=== PATIENT | female | born 1955 | race Caucasian/White ===

== ENCOUNTER → 2018-08-25 16:23 | Outpatient (CLI) | payer MEDICARE, SELFPAY ==
[2014-11-20 20:40] VITALS: BMI 28.8
== END ==
PROVIDERS: Family Provider Urology; PCP Urology; Referring Provider Nurse Practitioner Adult Health; Visit Provider Nurse Practitioner Adult Health
DX: N39.0 Urinary tract infection, site not specified (principal)
CPT/HCPCS: 87077; 87086; 87088; 87186

== ENCOUNTER → 2018-09-18 07:06 | Outpatient (CLI) | payer MEDICARE, SELFPAY ==
--- NOTE | 2018-09-18 07:29 | CT_ITS ---
STUDY: CT ABDOMEN AND PELVIS WITHOUT CONTRAST REASON FOR EXAM: Female, 62 years old. Flank pain. Status post right nephrectomy. History of cervical carcinoma. RADIATION DOSAGE (If Supplied By Facility): CTDIvol = ( 9.77 ) mGy, DLP = ( 471.16 ) mGycm TECHNIQUE: Transaxial images were obtained from the dome of the diaphragm to the symphysis pubis without oral contrast, and without intravenous contrast. Sagittal and coronal images were reconstructed. Individualized dose optimization techniques were used for this CT. COMPARISON: None. FINDINGS: The visualized lung bases are unremarkable. The visualized portions of the heart are within normal limits. Normal liver. Normal gallbladder and extrahepatic biliary system. Normal spleen. Normal pancreas. Normal bilateral adrenal glands. Status post right nephrectomy. Ritu-cg-yihxyfhu right hydronephrosis and right hydroureter. Nonobstructive calculus in the lower pole calyx of the left kidney measuring 4 mm. There is a small hiatal hernia. Normal small intestine. The left hemicolon is decompressed. The appendix is visualized and appears normal. Normal abdominal aorta. There is an IVC filter in place. There is borderline retroperitoneal lymphadenopathy with enlarged nodes no greater than 10mm in the short axis diameter. Air is seen within the bladder lumen. Inhomogeneous mass seen in the pelvis extending down into the presacral region. Focal calcifications are seen within it. There is evidence of bone destruction of the sacrum. The left-sided hydronephrosis is most likely secondary to the mass in the pelvis. A neoplastic process should be ruled out. A colostomy is seen in the left lower quadrant. There is evidence of prior herniation of nondilated small bowel loops within the stoma. There is a demineralization of the lumbar vertebrae. CT/Abdomen/Pelvis without Cont IMPRESSION: Soft tissue mass in the pelvis with destruction of the sacrum. There is a left hydronephrosis most likely secondary to entrapment of the left ureter within this mass. Status post right nephrectomy. Air is seen within the bladder lumen. Electronically Signed: Gabriel Gallo at 14:44 EDT , Service support ,
== END ==
PROVIDERS: Referring Provider Nurse Practitioner Adult Health; Visit Provider Nurse Practitioner Adult Health
DX: R10.9 Unspecified abdominal pain (principal); R30.0 Dysuria; R39.15 Urgency of urination
CPT/HCPCS: 74176; 87077; 87086; 87088; 87186

== ENCOUNTER 2018-09-19 14:07 | Inpatient (IN) | payer MEDICARE, SELFPAY ==
[2018-09-19] VITALS (11 sets, daily range): BP systolic 112–156; BP diastolic 52–108; PULSE 75–101; RESP 14–21; TEMP 36.7–37.2; O2SAT 93–100; BMI 26.9
--- NOTE | 2018-09-19 | IMM_PTH ---
PATIENT: VICTOR MANUEL WILLOUGHBY LOC: [facility] U#:[id number] AGE/SX: 62/F ROOM: MS308 RE09/19/[address]: Dr. Freddy Mi DO : 1955 BED: 1 DIS: 09/22/2018 SPEC #: [id number] RECD: 09/23/18 11:20 STATUS: ALESSIA REQ #: [id number] ANN: 09/19/18 00:[address]: Magdi Paulson DEPT: IMMUNOHISTOCHEMISTRY RECD BY: Courtney Cash ENTERED: 09/23/18 11:22 SP TYPE: IMMUNO OTHR DR: DO Dr. Toribio Lau MD No Primary Care Phys DAVE Barbosa Tissues: Pelvis, NOS Procedures: SMA (add) CD31 (add) CD34 (add) CK8 (add) DESMIN (add) Vimentin (add) FACTOR VIII (add) Pankeratin (initial) MELAN-A (add) S-100 (add) PHYSICIAN & [address] [address] SPECIMEN INFORMATION: Tissue Source: Pelvic mass biopsy Clinical Info: Pelvic mass Specimen Number: [id number] CPT code: 52149, 24189 x9 METHODOLOGY: Deparaffinized sections of prefer/formalin-fixed tissue or PAP/DQ stained slides are incubated with monoclonal/polyclonal antibodies/oligonucleotide probes. Localization is made via biotin free immunoperoxidase method. Appropriate controls are performed and reacted as expected. Results on target cell population are indicated in the following table: RESULTS: ANTIBODY / CLONE RESULT AE1-3 (AE1/AE3/PCK26) negative CK8 (81auirW66) negative Vimentin (V9) positive CD31 (EZEQUIEL/70A) negative Factor VIII (R Ag) negative CD34 (QBEnd-10) negative Actin (1A4) positive Desmin (CE-R-11) positive Melan A (A103) negative S-100 (4C4.9) negative These tests were developed and their performance characteristics determined by [facility]. They may not have been cleared or approved by the U.S. Food and Drug Administration. The FDA has determined that such clearance or approval is not necessary. INTERPRETATION: Pelvic mass, core biopsy: Spindle cell proliferation with smooth muscle differentiation, consistent with leiomyoma. See comment. TONIA:jose 09/29/18 Comment: The specimen is sent to [facility] for expert opinion and reviewed by Dr. Isabel and above diagnosis is rendered. The complete report is viewable in patient's EMR. Case has been reviewed in consultation with Dr. Pina who concurs with the above diagnosis. IDC:AM
--- NOTE | 2018-09-19 | IMM_PTH ---
PATIENT: VICTOR MANUEL WILLOUGHBY LOC: MS3 U#:[id number] AGE/SX: 62/F ROOM: MS308 RE09/19/[address]: Dr. Freddy Mi DO : 1955 BED: 1 DIS: 09/22/2018 SPEC #: [id number] RECD: 09/23/18 11:20 STATUS: ALESSIA REQ #: [id number] ANN: 09/19/18 00:[address]: Magdi Paulson DEPT: IMMUNOHISTOCHEMISTRY RECD BY: Courtney Cash ENTERED: 09/23/18 11:22 SP TYPE: IMMUNO OTHR DR: DO Dr. Toribio Lau MD No Primary Care Phys DAVE Barbosa Tissues: Pelvis, NOS Procedures: SMA (add) CD31 (add) CD34 (add) CK8 (add) DESMIN (add) Vimentin (add) FACTOR VIII (add) Pankeratin (initial) MELAN-A (add) S-100 (add) PHYSICIAN & [address] [address] SPECIMEN INFORMATION: Tissue Source: Pelvic mass biopsy Clinical Info: Pelvic mass Specimen Number: [id number] CPT code: 38662, 95344 x9 METHODOLOGY: Deparaffinized sections of prefer/formalin-fixed tissue or PAP/DQ stained slides are incubated with monoclonal/polyclonal antibodies/oligonucleotide probes. Localization is made via biotin free immunoperoxidase method. Appropriate controls are performed and reacted as expected. Results on target cell population are indicated in the following table: RESULTS: ANTIBODY / CLONE RESULT AE1-3 (AE1/AE3/PCK26) negative CK8 (29tbahL33) negative Vimentin (V9) positive CD31 (EZEQUIEL/70A) negative Factor VIII (R Ag) negative CD34 (QBEnd-10) negative Actin (1A4) positive Desmin (CE-R-11) positive Melan A (A103) negative S-100 (4C4.9) negative These tests were developed and their performance characteristics determined by [facility]. They may not have been cleared or approved by the U.S. Food and Drug Administration. The FDA has determined that such clearance or approval is not necessary. INTERPRETATION: Pelvic mass, core biopsy: Spindle cell proliferation with smooth muscle differentiation, consistent with subcutaneous leiomyoma. See comment. TONIA:jose 09/29/18 Comment: The specimen is sent to [facility] for expert opinion and reviewed by Dr. Isabel and above diagnosis is rendered. The complete report is viewable in patient's EMR. Case has been reviewed in consultation with Dr. Pina who concurs with the above diagnosis. IDC:AM
--- NOTE | 2018-09-19 13:20 | MASS_PTH ---
PATIENT: VICTOR MANUEL WILLOUGHBY LOC: MS3 U#:[id number] AGE/SX: 62/F ROOM: MS308 RE09/19/[address]: Dr. Freddy Mi DO : 1955 BED: 1 DIS: 09/22/2018 SPEC #: [id number] RECD: 09/22/18 07:57 STATUS: ALESSIA REQ #: [id number] ANN: 09/19/18 13:[address]: Magdi Paulson DEPT: SURGICAL PATHOLOGY RECD BY: Shady Figueroa ENTERED: 09/22/18 08:22 SP TYPE: Mass OTHR DR: MD Dr. Freddy Stone DO Dr. Prakash Chand, MD No Primary Care Phys Katty Koch, SOHAN-C Tissues: Pelvis, NOS Procedures: [facility] Consultation (on slides) Surgery Specimen Level V Comments: @ Ordering doctor for SUV edited from to @ by BARRINGTON at 09/22/18 0855 @ Submitting doctor edited from to @ by BARRINGTON at 09/22/18 0855 HEADER OPERATION: Cysto PRE-OP DIAGNOSIS: Left hydronephrosis, pelvic mass TISSUE SUBMITTED: Pelvic mass biopsy MICROSCOPIC DIAGNOSIS Pelvic mass, core biopsy: Spindle cell proliferation with smooth muscle differentiation, consistent with subcutaneous leiomyoma. See comment. SJ:jose 09/29/18 COMMENT This case is sent to [facility] for expert opinion and reviewed by Dr. Isabel and above diagnosis is rendered. The complete report is viewable in patient's EMR. Immunohistochemistry ([id number]) and immunohistochemistry stains performed at [facility] supports the above diagnosis. Case has been reviewed in consultation with Dr. Pina who concurs with the above diagnosis. IDC:AM MICROSCOPIC DESCRIPTION Slides are reviewed. GROSS DESCRIPTION Received in fixative is one container labeled with the patient's name and designated pelvic mass biopsy. The specimen consists of five elongated fragments of ojeda soft tissue measuring 1 to 2 cm in length and 0.1 cm in diameter. The specimen is totally submitted in one cassette. / TONIA:jose 09/22/18 TC: CPT: 55452
--- NOTE | 2018-09-19 13:20 | MASS_PTH ---
PATIENT: VICTOR MANUEL WILLOUGHBY LOC: MS3 U#:[id number] AGE/SX: 62/F ROOM: MS308 RE09/19/[address]: Dr. Freddy Mi DO : 1955 BED: 1 DIS: 09/22/2018 SPEC #: [id number] RECD: 09/22/18 07:57 STATUS: ALESSIA REQ #: [id number] ANN: 09/19/18 13:[address]: Magdi Paulson DEPT: SURGICAL PATHOLOGY RECD BY: Shady Figueroa ENTERED: 09/22/18 08:22 SP TYPE: Mass OTHR DR: MD Dr. Freddy Stone DO Dr. Prakash Chand, MD No Primary Care Phys Katty Koch, SOHAN-C Tissues: Pelvis, NOS Procedures: [facility] Consultation (on slides) Surgery Specimen Level V Comments: @ Ordering doctor for SUV edited from to @ by BARRINGTON at 09/22/18 0855 @ Submitting doctor edited from to @ by BARRINGTON at 09/22/18 0855 HEADER OPERATION: Cysto PRE-OP DIAGNOSIS: Left hydronephrosis, pelvic mass TISSUE SUBMITTED: Pelvic mass biopsy MICROSCOPIC DIAGNOSIS Pelvic mass, core biopsy: Spindle cell proliferation with smooth muscle differentiation, consistent with leiomyoma. See comment. SJ:jose 09/29/18 COMMENT This case is sent to [facility] for expert opinion and reviewed by Dr. Isabel and above diagnosis is rendered. The complete report is viewable in patient's EMR. Immunohistochemistry ([id number]) and immunohistochemistry stains performed at [facility] supports the above diagnosis. Case has been reviewed in consultation with Dr. Pina who concurs with the above diagnosis. IDC:AM MICROSCOPIC DESCRIPTION Slides are reviewed. GROSS DESCRIPTION Received in fixative is one container labeled with the patient's name and designated pelvic mass biopsy. The specimen consists of five elongated fragments of ojeda soft tissue measuring 1 to 2 cm in length and 0.1 cm in diameter. The specimen is totally submitted in one cassette. / TONIA:jose 09/22/18 TC: CPT: 47470
[2018-09-19] MEDS: Cefazolin 2 GM in 0.9% Normal Saline 100 ML IV (13:33)
--- NOTE | 2018-09-19 14:06 | CT_ITS ---
STUDY: PERCUTANEOUS NEPHROSTOMY TUBE INSERTION LEFT REASON FOR EXAM: Female, 62 years old. Left hydronephrosis due to a pelvic mass. RADIATION DOSAGE (If Supplied By Facility): CTDIvol = ( 15 ) mGy, DLP = ( 430.92 ) mGycm. Individualized dose optimization techniques were used for this CT.? TECHNIQUE: The patient was in the left side up decubitus position. The overlying skin was prepped and draped in usual sterile fashion. Conscious sedation protocol was followed. The patient received 2 mg of Versed and 50 mcg of fentanyl intravenously. Conscious sedation was started at 1440 hours and terminated at 1500 hours. The patient was monitored appropriately by the department nurse. Following local anesthetic application, a puncture was performed utilizing a 20-gauge Chiba needle. Access to the kidney was obtained. Following this, appropriate dilatation of the tract was performed. An 8.5 [place] left-sided nephrostomy catheter was placed. The patient tolerated procedure well. CT/Nephrotube Placement CT IMPRESSION: Successful left percutaneous nephrostomy catheter placement. Electronically Signed: Gabriel Gallo, at 15:22 EDT , Service support ,
--- NOTE | 2018-09-19 14:15 | HP.PCM_ITS ---
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 This past month had Constant bladder pressure, has to strain to void, dysuria intermittently, sometimes gushes when she stands up. Urine cx 07/29 grew mixed contaminants. Has a solitary left kidney and after a appropriate course of antibotics symptoms did not resolved and we recommended a CT scan. Finally patient had a CT scan yesturday which demonstrates a large pelvic mass and left hydronephrosis, today I attempted to place a left stent but was impossible due to pelvic mass pressing on bladder and severe distorted anatomy. She will need an left nephrostomy tube today. I call Dr Rosas at [facility] who agreed to place a nephrostomy tube today. Will admit to hospital for further care, consult hospitalist for medical manegement and will consult medical oncology for new pelvic mass suspect has recurrence of cervical cancer. On bimanual exam very hard fix mass in the pelvis. 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 Does not use smokeless tobacco. Does not drink anymore. Does not use drugs. Drinks 1 caffeinated drink per day. Has had a blood transfusion. REVIEW OF SYSTEMS: Constitutional: Patient denies fever and chills. Gastrointestinal: Patient reports abdominal pain and nausea/vomiting. Patient denies change in bowels. Genitourinary: Patient reports frequent urination, leakage of urine, frequent urinary tract infections, and difficulty starting stream. Patient denies urinary retention, get up at night to void, blood in urine, history of stones, weak stream, and bedwetting. VITAL SIGNS: Weight 175 lb / 79.38 kg Height 66 in / 167.64 cm BP 132/68 mmHg BMI 28.2 kg/m? MULTI-SYSTEM PHYSICAL EXAMINATION: Constitutional: Well-nourished. Normally developed. Good grooming. Neurologic / Psychiatric: Oriented to time, oriented to place, oriented to person. No depression, no anxiety, no agitation. Gastrointestinal: No mass, no tenderness, no rigidity, non obese abdomen. multiple surgical scars colostomy in place pelvic: exam: hard fixed mass in the pelvis. PAST DATA REVIEWED: Source Of History: Patient Records Review: Previous Patient Records Urine Test Review: Urinalysis, Urine Culture and Sensitivity PROCEDURES: cystoscopy. ASSESSMENT: Pelvis mass new left hydronephrosis admit to hospital npo plan for left nephrostomy tube today and admit. consult hospitalist consult medical oncology.
--- NOTE | 2018-09-19 14:24 | SUR.PHASEI ---
Addendum entered by Cheo Raphael 09/19/18 15:33: ERROR. JUAN MANUEL CANDELARIA* Original Note: PT BEING TAKEN TO CT SCAN BY TOMEKA CANDELARIA. PT IS HAVING A PROCEDURE DONE THERE, PER ABIOAL ORDERS. PT WILL RETURN TO PACU AFTERWARDS.
--- NOTE | 2018-09-19 14:32 | OP.PCM_ITS ---
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 CAT scan was done because of recurrent UTIs in this past month she is been having more pressure in the bladder more UTI symptoms and after recommendation for CAT scan she had a done demonstrated new left hydronephrosis so she is taken to the date of surgery to place a stent if possible. Procedure note patient was taken back to the operating room and underwent g eneral anesthesia was placed supine on the table she had an amputation of the right lower leg this was put into stirrups the left leg was put in stirrups medially and bimanual exam foul-smelling purulent fluid out of the pelvic area she had a very hard fixed mass in the pelvis area is very tender on cystoscopy the bladder was completely obliterated by a large mass pressing into the bladder no recognizable structures within the bladder the trigone was not recognizable is all inflamed no normal distention of the bladder. Completely on recognizable anatomy is hard firm fixed mass that was pushing outwardly from the outside into the bladder at this point the stent placement was not even attempted this would be futile so I drained drain bladder and completed the pelvic exam and the patient's anesthetic was reversed plan is to admit her to the hospital in place in the left nephrostomy tube as soon as possible. Type of Anesthesia:: General Drains: none - Admit VTE Documentation VTE Present on Admission: No VTE Mechan Device Prophylaxis: SCD's
[2018-09-19] MEDS: Midazolam 2 MG/2 ML Syringe IV (14:43)
[2018-09-19] MEDS: fentaNYL 100 MCG/2 ML Ampul IV (14:44)
--- NOTE | 2018-09-19 15:30 | SUR.PHASEI ---
PT WAS TAKEN TO CT SCAN BY JUAN MANUEL CANDELARIA. GAVE TOMEKA JARRELL REPORT ON PT. PER KECIA IN CT SCAN, PT WOULD COME BACK TO PACU AFTERWARDS. PT IS NOW BEING TAKEN TO MS3 INSTEAD OF COMING TO PACU. GAVE REPORT TO TOMEKA SILVEIRA FROM [facility].
[2018-09-19] MEDS: 0.9% Normal Saline 1,000 ML 125 ML IV (16:26)
[2018-09-19 17:41] LABS: Bedside Glucose 102 mg/dL (70-110)
[2018-09-19 18:18] LABS: Absolute Lymphocyte Count 1.73 X10^3/uL (0.83-4.51); Absolute Neutrophil Count 8.3 X10^3/uL (2.0-7.7); Basophil# 0.04 X10^3/uL; Basophil% 0.4 % (0-1); Eosinophil# 0.08 X10^3/uL; Eosinophils% 0.7 % (0-5); Hematocrit 36.9 % (37-47); Lymphocyte # 1.73 X10^3/ul (4.0); Lymphocyte % 15.9 % (19-41); Mean Corp Hgb Conc 32.5 g/dL (32-36); Mean Corpuscular Hgb 29.7 pg (27.0-32.0); Mean Corpuscular Volume 91.3 fL (81-99); Mean Platelet Vol. 9.3 fl (6.2-12.0); Monocyte# 0.67 X10^3/uL; Monocyte% 6.2 % (0-10); NRBC Flagged by Analyzer 0 % (0-5); Neutrophil # 8.32 X10^3/uL (2.7-7.7); Neutrophil % 76.3 % (47-70); Platelet Count 338 K/mm3 (150-450); RBC Distribution Width CV 13.2 % (11.6-14.6); RBC Distribution Width SD 44.2 fl (35.1-43.9); Red Blood Count 4.04 M/mm3 (4.2-5.4); White Blood Count 10.9 K/mm3 (4.4-11.0)
--- NOTE | 2018-09-19 18:29 | PCM.PN.BLA ---
Progress Note 62 yo female s/p L nephrostomy tube placement for Solitary left kidney. new mass in the pelvis, h/o cervical cancer probably need biopsy to confirm recurrence may do CT guided biopsy on Saturday consult to hospitalist and oncologist placed.
--- NOTE | 2018-09-19 18:45 | CON.PCM_ITS ---
Problem List (1) Recurrent UTI Status: Acute (2) Back pain Status: Chronic (3) Cervical cancer Status: Chronic (4) Colostomy in place Status: Chronic (5) Presence of IVC filter Status: Chronic (6) Rupture of bowel Status: Chronic (7) ureteral stents Status: Chronic (8) Pelvic mass in female Status: Acute Reason for Consult Date of Consultation: 09/19/18 Reason for Consultation: Medical management for UTI and other comorbidities History of Present Illness: The patient is a 62 year old F with multiple comorbidities is admitted for work- up for recurrent UTI. Patient had first UTI episode about a week before . After that she has taken fluoroquinolones and other antibiotics but she still has low urinary tract symptoms including increased frequency, urgency, dysuria, incomplete emptying of bladder, incontinent and sometimes rushing of urine on standing up. 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 She is wheelchair-bound. She had a CT abdomen shows soft tissue mass in the pelvis with destruction of the sacrum. Left hydronephrosis most likely secondary to entrapment of left ureter within the mass. The area seen in the bladder. Today, Dr. Paulson attempted cystoscopy but bladder anatomy was distorted, unrecognizable and outside compression from pelvic mass. Therefore, stent placement was not attempted. Later on, Dr. Rivera put percutaneous left-sided nephrostomy tube for drainage [] She denies chronic heart or lung disease. Does not have chest pain, shortness of breath, dizziness or syncope history. She has never been a smoker. Denies drinking alcohol. Past Medical History Past Medical History (Chronic Problems): Chronic Problems Colostomy in place (Chronic) Back pain (Chronic) Presence of IVC filter (Chronic) ureteral stents (Chronic) Rupture of bowel (Chronic) Cervical cancer (Chronic) Allergies Penicillins Allergy (Verified 09/19/18 08:40) Rash hydrocodone bitartrate [From Vicodin] Adverse Reaction (Verified 09/19/18 08:40) Nausea Sulfa (Sulfonamide Antibiotics) Adverse Reaction (Verified 09/19/18 08:40) Vomiting Home Medications: Ambulatory Orders Medication Instructions Recorded Oxybutynin Chloride [Ditropan Xl] 5 mg PO TID 11/20/14 Venlafaxine XR [Effexor Xr] 75 mg PO DAILY 11/20/14 Acetaminophen [Tylenol Extra 500 - 1,000 mg PO Q6H PRN PRN 09/19/18 Strength] Biotin 300 mcg PO DAILY 09/19/18 Surgical History: - - cervical cancer surgery, had radiation and chemo, radiation implants, ureteral stents, multiple abd surgeries and cololostomy, right nephrectemy, Psychiatric History: Anxiety, Depression 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 Smoking Status: Never smoker Tobacco Use: Non-smoker - *Family History Maternal History Items: - - mother with knee replacement Paternal History Items: - - father with diabetes Review of Systems Constitutional: Reports: Chills HEENT: Denies: Head Aches, Sinus Congestion, Sinus Drainage Cardiovascular: Denies: Chest Pain, Palpitations Respiratory: Denies: Cough, Shortness of breath at rest, Sputum production Gastrointestinal: Denies: Abdominal Pain, Nausea, Vomiting Genitourinary: Reports: Dysuria, Frequency, Hesitancy, Incontinence, Retention, Urgency Musculoskeletal: Reports: Back Pain, Joint Pain. Denies: Joint Tenderness Skin: Denies: Rash, Wounds Neurological: Reports: Balance problems. Denies: Focal weakness, Numbness, Tingling Psychiatric: Denies: Anxiety, Depression, Homicidal Ideations, Suicidal Ideations Hematologic/ Lymphatic: Denies: Easy Bruising, Easy Bleeding Patient Problems: Active and Suspected Problems Recurrent UTI (Acute) Pelvic mass in female (Acute) - Physical Exam General: Alert, Oriented x3, Cooperative HEENT: Atraumatic, PERRLA, EOMI, Normocephalic Oral: Moist Mucosa Neck: Supple, No JVD, Negative Carotid Bruits Lungs: Clear to auscultation, Normal air movement, No rhonchi, No wheeze, No rales Cardiovascular: Regular rate, Regular Rhythm, Normal S1, Normal S2, No murmurs Abdomen: Bowel Sounds Present, Soft, Non Tender, - - Left-sided colostomy present. Extremities: No edema, Capillary Refill Less than 3 Seconds, - - Right above- knee amputation. Skin: No rashes, No breakdown Musculoskeletal: Arthritic Changes, Tenderness - Mild deep tenderness present on sacrum. Lumbar spinal surgical scar present Neurological: Cranial nerves II-XII grossly intact, Deep Tendon Reflexes 2+/4 and Symmetrical, Neuro grossly intact Psych/Mental Status: Normal Affect, Appropriate Vital Signs Temp Pulse Resp BP Pulse Ox 98.4 F 75 18 144/81 H 98 09/19/18 15:48 09/19/18 15:48 09/19/18 15:48 09/19/18 15:48 09/19/18 15:48 Oxygen Delivery Method [5] Room Air Oxygen Delivery Method [4] Room Air Oxygen Delivery Method [3] Room Air Oxygen Delivery Method [2] Room Air Oxygen Delivery Method [1 ( Room Air Initial Baseline)] Oxygen Delivery Method Room Air Weight: 167 lb 1.766 oz Body Mass Index (BMI) 26.9 Laboratory Tests Past 24 Hrs 09/19/18 09/19/18 18:10 18:10 WBC 10.9 RBC 4.04 L Hgb 12.0 Hct 36.9 L MCV 91.3 MCH 29.7 MCHC 32.5 RDW Std Deviation 44.2 H RDW Coeff of Aaron 13.2 Plt Count 338 MPV 9.3 Immature Gran % (Auto) 0.500 Neut % (Auto) 76.3 H Lymph % (Auto) 15.9 L [place] % (Auto) 6.2 Eos % (Auto) 0.7 Baso % (Auto) 0.4 Absolute Neuts (auto) 8.3 H Absolute Lymphs (auto) 1.73 Absolute Nucleated RBC 0.00 Nucleated RBC % 0 Sodium Pending Potassium Pending Chloride Pending Carbon Dioxide Pending Anion Gap Pending BUN Pending Creatinine Pending Est GFR (MDRD) Af Amer Pending Est GFR (MDRD) Non-Af Pending BUN/Creatinine Ratio Pending Glucose Pending Calcium Pending Total Bilirubin Pending AST Pending ALT Pending Alkaline Phosphatase Pending Total Protein Pending Albumin Pending POC Glucose 09/19/18 17:30 POC Glucose 102 Assessment/Plan All Active Problems Recurrent UTI (Acute) Pelvic mass in female (Acute) puncture wound from cat left upper cheek (Acute) Cellulitis of left external cheek (Acute) Cellulitis (Acute) The patient is a 62 year old F with multiple comorbidities is admitted for work- up for recurrent UTI. Patient had first UTI episode about a week before . After that she has taken fluoroquinolones and other antibiotics but she still has low urinary tract symptoms including increased frequency, urgency, dysuria, incomplete emptying of bladder, incontinent and sometimes rushing of urine on standing up. Today, Dr. Paulson attempted cystoscopy but bladder anatomy was distorted, unrecognizable and outside compression from pelvic mass. Therefore, stent placement was not attempted. Later on, Dr. Rivera put percutaneous left-sided nephrostomy tube for drainage [] 1. Acute on recurrent UTI/colonization: There is no UA. Preliminary urine culture from 09/18 shows gram-negative lima [id number] colonies per mL. Previous urine culture from 08/2018 shows MRDO Proteus mirabilis [id number] and mixed gram-positive organism less than 1000 with resistant to most of the antibiotics except cefepime, imipenem and ertapenem and gentamicin. Patient did not had anaphylactic reaction with penicillin. Back in 1980s, she had localized rash in the chest and she was given penicillin but she has tolerated well penicillin in her 20s and later on. Started on cefepime 500 mg every 12 hourly adjusted to creatinine clearance. 2. Acute kidney injury most probably postobstructive secondary to left hydroureteronephrosis/possible UTI: Her baseline creatinine runs around 0.9. Currently, BUN/creatinine: 30/1.93. Electrolytes are within normal limit. IV fluid normal saline. 3. Pelvic mass with entrapped left ureter and left hydroureteronephrosis: Patient has left percutaneous nephrostomy tube. Urine is mild bloody. We will send the urine for UA and urine culture and sensitivity. Will need further consult from oncologist as the mass seems causing destruction to sacrum bone, and will need further work-up including biopsy. 4. History of multiple surgeries in the past: Right above-knee amputation seco ndary to sepsis, colostomy, IVC filter, chronic back pain status post lumbar spinal surgery: Patient has very limited functional capacity. On wheelchair. PT and OT. Code Visit Inpatient E&M: 12308 Init Hosp L3
[2018-09-19 18:48] LABS: ALB/GLOB Ratio 0.6 RATIO (0.9-2.4); AST(SGOT) 14 U/L (15-37); Alanine Aminotransfer ALT/SGPT 12 U/L (13-56); Alkaline Phosphatase 95 U/L (45-117); Anion Gap 7 (5-15); BUN 30 mg/dL (7-18); BUN/Creat Ratio 15.5 RATIO (10-20); Calcium,Total 8.9 mg/dL (8.5-10.1); Chloride 112 mmol/L (98-107); Creatinine, Serum 1.93 mg/dL (0.55-1.02); EST Glomerular Filtration Rate 28 mL/min (>60); Est Glom Filt Rate - Afr Amer 34 mL/min (>60); Estimated Creatinine Clearance 27.93 ml/min; Globulin 4.8 g/dL (2.2-4.2); Glucose 128 mg/dL (74-106); Protein, Total 7.8 g/dL (6.4-8.2); Sodium Level 140 mmol/L (136-145)
[2018-09-19] MEDS: Acetaminophen 325 MG Tablet 650 MG PO (19:37)
[2018-09-19 21:04] LABS: Bacteria 0 SEEN /hpf (None Seen); Mucous, Urine 0 SEEN /hpf (<or=2+); Squamous Epithelial Cells - UA 0 SEEN /hpf (5-10)
[2018-09-19 21:08] LABS: Color, Urine Yellow (Yellow); Glucose, Dipstick Normal (Normal); Ketone-Dipstick Negative (Negative); Leukocyte Esterase-Dipstick 500 /ul (Negative); Nitrite-Dipstick Negative (Negative); Occult Blood-Urine 250 /ul (Negative); Protein-Dipstick 100 mg/dl (Negative); Urine Bilirubin Dipstick Negative (Negative); Urine Clarity Clear (Clear); Urine Urobilinogen Normal (Normal)
[2018-09-19 21:15] LABS: Red Blood Cells-Urine 25-50 SEEN /hpf (0-5); White Blood Cells 5-10 SEEN /hpf (0-5)
[2018-09-19] MEDS: Famotidine 20 MG Tablet PO (21:17)
[2018-09-19] MEDS: Oxybutynin 5 MG Tablet PO (22:15)
[2018-09-19 22:40] LABS: Bedside Glucose 108 mg/dL (70-110)
[2018-09-20] MEDS: Morphine 2 MG/ML Syringe IV ×2 (00:03→22:48)
[2018-09-20 02:58] VITALS: BP 146/70; PULSE 88; RESP 18; TEMP 36.9; O2SAT 98
[2018-09-20] MEDS: Acetaminophen 325 MG Tablet 650 MG PO ×3 (03:07→14:50)
[2018-09-20] MEDS: Oxybutynin 5 MG Tablet PO ×3 (05:55→20:45)
[2018-09-20 07:10] VITALS: O2SAT 96
--- NOTE | 2018-09-20 07:55 | ONC.CONS.INP ---
Consult Referring Physician: Dr. 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 Paulson for left hydronephrosis secondary to new finding of pelvic mass. Patient states she was diagnosed in 1998 with stage IIb cervical cancer, underwent concomitant chemoradiation followed by brachytherapy at [facility] and was adherent to surveillance visits with gynecologic oncology until 2001. 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 Baldemar Chakraborty ([place]) and was told no significant findings on that examination. Experienced bowel rupture in 2001 with delayed diagnosis, during a 4 month inpatient stay her care was complicated by a bone infection involving her lower spine and tailbone (resulting in multiple surgeries and what she describes as bone grafts sacrum) and LLE DVT. Initially DVT was managed with warfarin, however she developed gross hematuria while on warfarin and an IVF filter was placed. She reports the beginning of this month abruptly she began experiencing constant bladder pressure, dysuria and incontinence which did not improve after course of antibiotics. Thus, patient underwent CT abdomen and pelvis on 09/18/2018 which revealed a soft tissue mass within the pelvis with destruction of the sacrum, left hydronephrosis as a result of entrapment of the left ureter within the mass. An attempt was made on 09/19/[address] a left ureteral stent but unsuccessful due to pelvic mass. A left nephrostomy tube was placed. Specifically denies B symptoms, shortness of breath, cough, vaginal bleeding, and swelling or pain of her left lower extremity. Never smoker. Past Medical History: Chronic Problems (Last Updated 09/29/18 @ 12:57 by Sallie Schroeder) Rupture of bowel (Chronic) ureteral stents (Chronic) Presence of IVC filter (Chronic) Back pain (Chronic) Colostomy in place (Chronic) Status post nephrectomy (Chronic) Maternal Family History: - - mother with knee replacement Paternal Family History: - - father with diabetes - Social History Smoking Status: Never smoker Tobacco Use: Non-smoker Allergies/Adverse Reactions: Allergy/AdvReac Type Severity Reaction Status Date / Time hydrocodone bitartrate AdvReac Severe Nausea Verified 09/29/18 11:21 [From Vicodin] Sulfa (Sulfonamide AdvReac Severe Vomiting Verified 09/29/18 11:21 Antibiotics) Penicillins AdvReac Mild Rash Verified 09/29/18 11:21 Review of Systems Constitutional:: Denies: Fever, Sweats, Weight loss, Appetite change, Chills Cardiovascular:: Denies: Chest pain, Palpitations, Dyspnea on exertion, Orthopnea, PND, Shortness of breath Respiratory: Denies: Cough, Hemoptysis, Shortness of Breath, Wheezing Gastrointestinal:: Reports: Constipation - LBM 09/16/18. Denies: Abdominal pain, Nausea, Vomiting, Diarrhea, Hematochezia Genitourinary: Reports: Incontinence, Dysuria, Pelvic pain - Well-controlled at the present time. Denies: Hematuria, Flank pain Musculoskeletal:: Denies: Back pain, Myalgia, Arthralgia Skin: Denies: Rash, Skin Changes, Wounds Neurological:: Denies: Headache, Dizziness, Numbness, Tingling, Visual changes, Tinnitus, Hearing loss Psychiatric: Denies: Anxiety, Depression, Homicidal Ideations, Suicidal Ideations Vital Signs Height 5 ft 6 in Weight: 167 lb 1.766 oz Weight in Pounds 167.1 lbs Pulse Ox 96 Temperature 98.4 F Pulse Rate [5] 99 Pulse Rate [4] 98 Pulse Rate [3] 96 Pulse Rate [2] 99 Pulse Rate [1 (Initial 98 Baseline)] Pulse Rate 88 Respiratory Rate [5] 18 Respiratory Rate [4] 21 Respiratory Rate [3] 15 Respiratory Rate [2] 18 Respiratory Rate [1 (Initial 16 Baseline)] Respiratory Rate 18 Blood Pressure [BP] 146/70 Blood Pressure [5] 135/74 Blood Pressure [4] 125/71 Blood Pressure [3] 132/62 Blood Pressure [2] 144/108 Blood Pressure [1 (Initial 135/52 Baseline)] Blood Pressure 144/81 Blood Pressure Position [BP] Supine Blood Pressure Position Semi-Fowlers - Physical Exam General: Alert, Oriented x3, No apparent distress HEENT: Atraumatic, PERRLA, EOMI, Normocephalic, - - Wears glasses Oropharynx:: Dry mucosa. Negative for: Ulcerated lesions Neck:: Supple, Trachea midline. Negative for: JVD, bilateral Cardiac:: Regular rate, Regular rhythm, Normal S1, Normal S2. Negative for: Murmur Lungs: Clear to auscultation, Excusion symmetrical. Negative for: Rhonchi, Wheezes Abdomen:: Bowel sounds x 4, Soft, Non-tender, Non-distended. Negative for: Hepatosplenomegaly Extremities:: - - Right lower extremity AKA. Negative for: Cyanosis, Edema Neurological: Neuro grossly intact Skin:: - - Multiple surgical scars present lumbar spine, sacrum, left hip. Negative for: Lesions, Rash, Petechiae, Ecchymosis Psychiatric:: Appropriate affect, Euthymic Lymphatics:: Negative for: Cervical lymphadenopathy, Supraclavicular lymphadenopathy, Axillary lymphadenopathy Laboratory Data: Laboratory Tests 09/19/18 09/19/18 09/19/18 Range/Units 22:36 20:55 18:10 WBC (4.4-11.0) K/mm3 RBC (4.2-5.4) M/mm3 Hgb (12.0-15.0) g/dL Hct (37-47) % MCV (81-99) fL MCH (27.0-32.0) pg MCHC (32-36) g/dL RDW Std Deviation (35.1-43.9) fl RDW Coeff of Aaron (11.6-14.6) % Plt Count (150-450) K/mm3 MPV (6.2-12.0) fl Immature Gran % (Auto) (0.0-0.9) % Neut % (Auto) (47-70) % Lymph % (Auto) (19-41) % [place] % (Auto) (0-10) % Eos % (Auto) (0-5) % Baso % (Auto) (0-1) % Absolute Neuts (auto) (2.0-7.7) X10^3/uL Absolute Lymphs (auto) (0.83-4.51) X10^3/uL Absolute Nucleated RBC (0-5) 10^3/uL Nucleated RBC % (0-5) % Sodium 140 (136-145) mmol/L Potassium 4.0 (3.5-5.1) mmol/L Chloride 112 H (98-107) mmol/L Carbon Dioxide 21.0 (21.0-32.0) mmol/L Anion Gap 7 (5-15) BUN 30 H (7-18) mg/dL Creatinine 1.93 H (0.55-1.02) mg/dL Estim Creat Clear Calc 27.93 ml/min Est GFR (MDRD) Af Amer 34 L (>60) mL/min Est GFR (MDRD) Non-Af 28 L (>60) mL/min BUN/Creatinine Ratio 15.5 (10-20) RATIO Glucose 128 H (74-106) mg/dL Calcium 8.9 (8.5-10.1) mg/dL Total Bilirubin 0.20 (0.20-1.00) mg/dL AST 14 L (15-37) U/L ALT 12 L (13-56) U/L Alkaline Phosphatase 95 (45-117) U/L Total Protein 7.8 (6.4-8.2) g/dL Albumin 3.0 L (3.2-5.0) g/dL Globulin 4.8 H (2.2-4.2) g/dL Albumin/Globulin Ratio 0.6 L (0.9-2.4) RATIO Urine Color Yellow (Yellow) Urine Clarity Clear (Clear) Urine pH 6.0 (5.0 - 8.0) Ur Specific [place] 1.010 (1.002-1.030) Urine Protein 100 H (Negative) mg/dl Urine Glucose (UA) Normal (Normal) mg/dl Urine Ketones Negative (Negative) mg/dl Urine Occult Blood 250 H (Negative) /ul Urine Nitrite Negative (Negative) Urine Bilirubin Negative (Negative) mg/dL Urine Urobilinogen Normal (Normal) mg/dl Ur Leukocyte Esterase 500 H (Negative) /ul Urine RBC 25-50 SEEN (0-5) /hpf Urine WBC 5-10 SEEN (0-5) /hpf Ur Squamous Epith Cells 0 SEEN (5-10) /hpf Urine Bacteria 0 SEEN (None Seen) /hpf Urine Mucus 0 SEEN (<or=2+) /hpf POC Glucose 108 (70-110) mg/dL 09/19/18 09/19/18 Range/Units 18:10 17:30 WBC 10.9 (4.4-11.0) K/mm3 RBC 4.04 L (4.2-5.4) M/mm3 Hgb 12.0 (12.0-15.0) g/dL Hct 36.9 L (37-47) % MCV 91.3 (81-99) fL MCH 29.7 (27.0-32.0) pg MCHC 32.5 (32-36) g/dL RDW Std Deviation 44.2 H (35.1-43.9) fl RDW Coeff of Aaron 13.2 (11.6-14.6) % Plt Count 338 (150-450) K/mm3 MPV 9.3 (6.2-12.0) fl Immature Gran % (Auto) 0.500 (0.0-0.9) % Neut % (Auto) 76.3 H (47-70) % Lymph % (Auto) 15.9 L (19-41) % [place] % (Auto) 6.2 (0-10) % Eos % (Auto) 0.7 (0-5) % Baso % (Auto) 0.4 (0-1) % Absolute Neuts (auto) 8.3 H (2.0-7.7) X10^3/uL Absolute Lymphs (auto) 1.73 (0.83-4.51) X10^3/uL Absolute Nucleated RBC 0.00 (0-5) 10^3/uL Nucleated RBC % 0 (0-5) % Sodium (136-145) mmol/L Potassium (3.5-5.1) mmol/L Chloride (98-107) mmol/L Carbon Dioxide (21.0-32.0) mmol/L Anion Gap (5-15) BUN (7-18) mg/dL Creatinine (0.55-1.02) mg/dL Estim Creat Clear Calc ml/min Est GFR (MDRD) Af Amer (>60) mL/min Est GFR (MDRD) Non-Af (>60) mL/min BUN/Creatinine Ratio (10-20) RATIO Glucose (74-106) mg/dL Calcium (8.5-10.1) mg/dL Total Bilirubin (0.20-1.00) mg/dL AST (15-37) U/L ALT (13-56) U/L Alkaline Phosphatase (45-117) U/L Total Protein (6.4-8.2) g/dL Albumin (3.2-5.0) g/dL Globulin (2.2-4.2) g/dL Albumin/Globulin Ratio (0.9-2.4) RATIO Urine Color (Yellow) Urine Clarity (Clear) Urine pH (5.0 - 8.0) Ur Specific [place] (1.002-1.030) Urine Protein (Negative) mg/dl Urine Glucose (UA) (Normal) mg/dl Urine Ketones (Negative) mg/dl Urine Occult Blood (Negative) /ul Urine Nitrite (Negative) Urine Bilirubin (Negative) mg/dL Urine Urobilinogen (Normal) mg/dl Ur Leukocyte Esterase (Negative) /ul Urine RBC (0-5) /hpf Urine WBC (0-5) /hpf Ur Squamous Epith Cells (5-10) /hpf Urine Bacteria (None Seen) /hpf Urine Mucus (<or=2+) /hpf POC Glucose 102 (70-110) mg/dL Diagnostic Data: Diagnostic Data Nephrostomy Tube Change 09/19/18 14:06 IMPRESSION: Successful left percutaneous nephrostomy catheter placement. 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 Paulson for left hydronephrosis secondary to new finding of pelvic mass. 1. Pelvic mass?new finding demonstrated on CT abdomen and pelvis 09/18/2018. Mass is encasing left ureter causing left hydro-nephrosis. Ureteral stent placement unable to be placed thus left percutaneous nephrostomy tube is in place. This morning BUN 30, creatinine 1.93. Renal dysfunction being managed by primary team. Mass is concerning for recurrence of previously treated cervical cancer however definitive diagnosis will require tissue biopsy. Patient will also need CT chest and nuclear med bone scan for better understanding of abnormalities noted in the sacrum on CT abdomen and pelvis, although would defer further imaging until creatinine improves. 2. Destruction of sacrum-noted on CT abdomen and pelvis 09/18/2018. Patient did experience significant infection of lower spine and sacrum resulting in several surgeries and what she describes as bone grafts in 2001. Bone scan would be helpful in distinguishing extend of disease although again we will hold on further imaging at this time. Ultimately advise tissue biopsy of pelvic mass and follow-up with Dr. Uriel Street at [facility] upon discharge. Thank you for allowing me to participate in the care of this patient Katty Koch, [employer], AOCNP Medications: Prescriptions This Visit Medication Instructions Recorded Acetaminophen [Tylenol Extra 500 - 1,000 mg PO Q6H PRN PRN 09/19/18 Strength] Biotin 300 mcg PO DAILY 09/19/18 Medications Added to Medication List This Visit Category Date Time Status Venlafaxine XR [Effexor Xr] Med 09/20/18 10:00 Active 75 mg PO DAILY Primary Care Provider: No Primary Care Phys Referring Provider: Magdi Paulson MD - Problem List (1) Pelvic mass in female Status: Acute (2) Cervical cancer Status: Inactive Qualifiers: Malignant neoplasm of cervix location: unspecified location Qualified Code(s): C53.9 - Malignant neoplasm of cervix uteri, unspecified
[2018-09-20] MEDS: 0.9% Normal Saline 1,000 ML 125 ML IV ×3 (07:57→17:15)
--- NOTE | 2018-09-20 08:50 | PN_ITS ---
Patient Problems: Active and Suspected Problems Recurrent UTI (Acute) Pelvic mass in female (Acute) Subjective: 62-year-old female who presented with a new pelvic mass on exam she is a hard fixed mass in the pelvis status post nephrostomy tube in the left side of her solitary left kidney we will check blood work today see if her creatinine normalizes if it does we could proceed with imaging as recommended by oncology which is very helpful. She is also on antibiotics for her very resistant urinary tract infection. Plan is to take her tomorrow to surgery to do a cystoscopy and also transvaginal biopsy this mass to hopefully establish the diagnosis in order to facilitate care and transfer to oncology service. Patient is agreeable with undergoing a trans-vaginal and cystoscopy and pelvic biopsy tomorrow in the operating room will be n.p.o. at midnight. - Physical Exam General: Alert, Oriented x3, Cooperative HEENT: Atraumatic, PERRLA, EOMI, Normocephalic Neck: Supple, No JVD, Negative Carotid Bruits Lungs: Clear to auscultation, Normal air movement Cardiovascular: Regular rate, No murmurs Abdomen: Bowel Sounds Present, Soft, Non Tender, - - Ostomy working well, left nephrostomy tube draining well. Extremities: No edema, Capillary Refill Less than 3 Seconds Skin: No rashes, No breakdown Musculoskeletal: No Tenderness to Palpation of Joints or Extremities Neurological: Cranial nerves II-XII grossly intact Psych/Mental Status: Normal Affect, Appropriate Vital Signs Temp Pulse Resp BP Pulse Ox 98.4 F 88 18 146/70 H 96 09/20/18 02:58 09/20/18 02:58 09/20/18 02:58 09/20/18 02:58 09/20/18 07:10 Oxygen Delivery Method [5] Room Air Oxygen Delivery Method [4] Room Air Oxygen Delivery Method [3] Room Air Oxygen Delivery Method [2] Room Air Oxygen Delivery Method [1 ( Room Air Initial Baseline)] Oxygen Delivery Method Room Air Weight: 75.8 kg Body Mass Index (BMI) 26.9 Intake and Output for Last 24 Hours 09/18/18 09/19/18 09/20/18 23:59 23:59 23:59 Intake Total 490 / 490 2276 / 2276 Output Total 525 / 525 1200 / 1200 Balance -35 / -35 1076 / 1076 Laboratory Tests Past 24 Hrs 09/19/18 09/19/18 09/19/18 18:10 18:10 20:55 WBC 10.9 RBC 4.04 L Hgb 12.0 Hct 36.9 L MCV 91.3 MCH 29.7 MCHC 32.5 RDW Std Deviation 44.2 H RDW Coeff of Aaron 13.2 Plt Count 338 MPV 9.3 Immature Gran % (Auto) 0.500 Neut % (Auto) 76.3 H Lymph % (Auto) 15.9 L Moody % (Auto) 6.2 Eos % (Auto) 0.7 Baso % (Auto) 0.4 Absolute Neuts (auto) 8.3 H Absolute Lymphs (auto) 1.73 Absolute Nucleated RBC 0.00 Nucleated RBC % 0 Sodium 140 Potassium 4.0 Chloride 112 H Carbon Dioxide 21.0 Anion Gap 7 BUN 30 H Creatinine 1.93 H Estim Creat Clear Calc 27.93 Est GFR (MDRD) Af Amer 34 L Est GFR (MDRD) Non-Af 28 L BUN/Creatinine Ratio 15.5 Glucose 128 H Calcium 8.9 Total Bilirubin 0.20 AST 14 L ALT 12 L Alkaline Phosphatase 95 Total Protein 7.8 Albumin 3.0 L Globulin 4.8 H Albumin/Globulin Ratio 0.6 L Urine Color Yellow Urine Clarity Clear Urine pH 6.0 Ur Specific [place] 1.010 Urine Protein 100 H Urine Glucose (UA) Normal Urine Ketones Negative Urine Occult Blood 250 H Urine Nitrite Negative Urine Bilirubin Negative Urine Urobilinogen Normal Ur Leukocyte Esterase 500 H Urine RBC 25-50 SEEN Urine WBC 5-10 SEEN Ur Squamous Epith Cells 0 SEEN Urine Bacteria 0 SEEN Urine Mucus 0 SEEN POC Glucose 09/19/18 09/19/18 22:36 17:30 POC Glucose 108 102 Capacity - Capacity Assessment Tool Can the patient make a choice & communicate that choice?: Yes Can the patient understand benefits, risks and alternatives?: Yes Can the patient make a logical, rational choice?: Yes Is the choice the patient makes consistent w/ their values?: Yes Is there an impending, emergent risk to the patient?: No Does the patient have an Advance Directive?: Unable to Determine Is there a Surrogate Available?: Unable to Determine i.e. HCPOA: Unable to Determine i.e. close relative (spouse, child, parent, sibling)?: Unable to Determine Medical Necessity - Tobacco Use Smoking Status: Never smoker Tobacco Use: Non-smoker Assessment/Plan All Active Problems Recurrent UTI (Acute) Pelvic mass in female (Acute) puncture wound from cat left upper cheek (Acute) Cellulitis of left external cheek (Acute) Cellulitis (Acute) 62-year-old female with left hydronephrosis status post left nephrostomy tube, large mass in the pelvis causing obstruction of the left kidney plan to proceed with a cystoscopy and transvaginal biopsy of the mass tomorrow surgery. I anticipate then possibly to do some imaging scans as recommended by oncology if her creatinine normalizes and probably home by Saturday to follow-up with oncology and urology she is agreeable with the plan.
[2018-09-20 09:05] LABS: Absolute Lymphocyte Count 1.39 X10^3/uL (0.83-4.51); Absolute Neutrophil Count 7.3 X10^3/uL (2.0-7.7); Basophil# 0.04 X10^3/uL; Basophil% 0.4 % (0-1); Eosinophil# 0.13 X10^3/uL; Eosinophils% 1.4 % (0-5); Hematocrit 34.2 % (37-47); Hemoglobin 11.5 g/dL (12.0-15.0); Lymphocyte # 1.39 X10^3/ul (4.0); Lymphocyte % 14.6 % (19-41); Mean Corp Hgb Conc 33.6 g/dL (32-36); Mean Corpuscular Hgb 30.3 pg (27.0-32.0); Mean Platelet Vol. 9.1 fl (6.2-12.0); Monocyte# 0.64 X10^3/uL; Monocyte% 6.7 % (0-10); NRBC Flagged by Analyzer 0 % (0-5); Neutrophil # 7.32 X10^3/uL (2.7-7.7); Neutrophil % 76.6 % (47-70); Platelet Count 331 K/mm3 (150-450); RBC Distribution Width CV 13.4 % (11.6-14.6); RBC Distribution Width SD 44.4 fl (35.1-43.9); White Blood Count 9.6 K/mm3 (4.4-11.0)
[2018-09-20 09:17] LABS: International Normalized Ratio 1.2; Prothrombin Time (Protime)PT. 14.7 SECONDS (11.7-14.9)
[2018-09-20 09:27] LABS: ALB/GLOB Ratio 0.6 RATIO (0.9-2.4); AST(SGOT) 16 U/L (15-37); Alanine Aminotransfer ALT/SGPT 10 U/L (13-56); Albumin, Serum 2.8 g/dL (3.2-5.0); Alkaline Phosphatase 94 U/L (45-117); Anion Gap 7 (5-15); BUN 23 mg/dL (7-18); BUN/Creat Ratio 13.6 RATIO (10-20); Calcium,Total 8.5 mg/dL (8.5-10.1); Chloride 114 mmol/L (98-107); Creatinine, Serum 1.69 mg/dL (0.55-1.02); EST Glomerular Filtration Rate 32 mL/min (>60); Est Glom Filt Rate - Afr Amer 39 mL/min (>60); Globulin 4.7 g/dL (2.2-4.2); Glucose 104 mg/dL (74-106); Potassium 4.1 mmol/L (3.5-5.1); Protein, Total 7.5 g/dL (6.4-8.2); Sodium Level 141 mmol/L (136-145)
[2018-09-20 09:55] VITALS: BP 114/47; PULSE 95; RESP 18; TEMP 37.3; O2SAT 94
[2018-09-20] MEDS: Famotidine 20 MG Tablet PO ×2 (09:56→20:45)
[2018-09-20] MEDS: Venlafaxine XR 75 MG Capsule PO (09:59)
--- NOTE | 2018-09-20 11:06 | CASEMGMT ---
TOMEKA HUDSON assessment: Face to Face with patient for initial transition planning/care coordination assessment. TOMEKA HUDSON introduced self and role at [facility], pt voices understanding and consents to assessment at this time. Pt is lying in bed in no distress at this time. Pt is A/Ox4 at this time and answers all questions appropriately at this time. Care providers, pharmacy, and demographics verified at this time. PCP: Pt states does not currently have PCP, in-network [facility] list provided to pt at this time. Specialists: Lorene, urologist; [employer] [facility] in [place] Preferred Pharmacy: [facility] Insurance: [facility] Prescription Benefit: [facility] Living Will/HPOA: Pt states has LW/HPOA and is aware that they are not currently on file at [facility] at this time. Pt states that her sig other, Kip Fofana, is HPOA. LNOK: Kip Fofana, sig other Living Arrangements: Pt states lives with sig other in 1 story log cabin and states no concerns at home at this time. Transportation: Pt states drives self and states no transportation concerns at this time. DME/HHC: Pt states has the following DME: cane, walker, shower bench, and prosthetic for right lower leg. Pt states no need for any further DME at this time. Pt states no hx of HHC but states has been to [place] [facility] in the past. Pt states no concerns with going home at time of discharge. Pt is disabled. Pt states does not smoke or drink ETOH. Pt states no further concerns/needs at this time. CM to follow for any further discharge planning/needs. Advised pt to ask for CM if any further questions/concerns/needs arise, voices understanding. Pt Goal: Home Plan: [place] TOMEKA HUDSON
[2018-09-20 16:35] VITALS: BP 151/78; PULSE 83; RESP 18; TEMP 36.9; O2SAT 98
[2018-09-20 20:31] VITALS: BP 140/83; PULSE 81; RESP 18; TEMP 37.3; O2SAT 100
[2018-09-20 20:51] VITALS: PULSE 81; RESP 18; O2SAT 100
[2018-09-21] VITALS (10 sets, daily range): BP systolic 102–148; BP diastolic 62–89; PULSE 75–93; RESP 16–18; TEMP 36.4–37.2; O2SAT 95–100; BMI 26.9
[2018-09-21] MEDS: 0.9% Normal Saline 1,000 ML 125 ML IV ×4 (01:11→18:35)
--- NOTE | 2018-09-21 08:34 | RAD_ITS ---
STUDY: X-RAY - ABDOMEN/PELVIS REASON FOR EXAM: Female, 62 years old. Recent nephrostomy tube insertion TECHNIQUE: Single AP view of the abdomen / pelvis. COMPARISON: Procedural images of 09/19/2018 FINDINGS: A left-sided nephrostomy tube is identified with the cope loop likely in the renal pelvis or proximal ureter, overall similar since prior study. Surgical clips and coils in the right abdomen stable. IVC filter is noted. No dilated loops of air-filled small bowel. Mild fecal residue in colon stable. There is no demonstrated free abdominal air. The visualized liver, spleen and kidneys are grossly normal in size and morphology. Normal soft tissue structures. Normal visualized osseous structures. RAD/Abdomen Single View IMPRESSION: Left nephrostomy tube similar in position to procedural images of 09/19/2018. Electronically Signed: Roberth Vargas MD at 10:51 EDT , Service support ,
--- NOTE | 2018-09-21 09:34 | PCM.OPRPT ---
Report of Operation Date of Procedure: 09/21/18 Pre-Operative Diagnosis: Pelvic mass Post-Operative Diagnosis: Same Surgery/Procedure Performed:: Biopsy of pelvic mass Description of Surgical Findings:: 62-year-old female taken back to the operating room at the smooth induction of MAC local anesthesia she was placed in dorsolithotomy position with the one leg and stirrup to the legs being held by the nurse prepped and draped the urethra and vaginal area I then palpated the mass in the pelvic area and then guided a 18-gauge biopsy needle to the mass and did biopsies with a 5 biopsies around the area of the mass. There was a little bit of bleeding pressure was held the bleeding stopped spontaneously and we put a juan-pad on patient was taken back to PACU in good condition. Type of Anesthesia:: General Specimen's removed: biopsy of pelvic mass Drains: none - Admit VTE Documentation VTE Present on Admission: No VTE Mechan Device Prophylaxis: SCD's
[2018-09-21] MEDS: Famotidine 20 MG Tablet PO ×2 (11:46→21:40)
[2018-09-21] MEDS: Bisacodyl 5 MG Tablet 10 MG PO (11:46)
[2018-09-21] MEDS: Oxybutynin 5 MG Tablet PO ×2 (11:46→21:40)
[2018-09-21] MEDS: Venlafaxine XR 75 MG Capsule PO (11:47)
--- NOTE | 2018-09-21 17:10 | PCM.PROGNOTE ---
Patient Problems: Active and Suspected Problems Recurrent UTI (Acute) Pelvic mass in female (Acute) Subjective: The date of this entry is 09/20/2018: Patient was seen and examined today, I talked briefly with urology today, they are planning on performing a biopsy on her pelvic mass tomorrow transvaginally. Patient has no specific complaints today, I discussed her urinary culture today with her, she has small numbers of Proteus mirabilis which is resistant to many antibiotics. Patient was placed on cefepime which it is sensitive to. I talked to urology about this culture, I do not think the patient needs to be discharged home on IV antibiotics. We will plan on completing 3 days of IV antibiotic treatment. - Physical Exam General: Alert, Oriented x3, Cooperative, No apparent distress HEENT: Atraumatic, PERRLA, EOMI, Normocephalic Oral: Moist Mucosa Neck: Supple, No JVD, Trachea Midline, Thyroid Normal Size and Texture Lungs: Clear to auscultation, Normal air movement, No rhonchi, No wheeze, No rales Cardiovascular: Regular rate, Regular Rhythm, Normal S1, Normal S2, No murmurs, PMI Normal, No rub noted Abdomen: Bowel Sounds Present, Soft, Non Tender, Non-Distended, - - Colostomy is in place Extremities: No clubbing, No cyanosis, Capillary Refill Less than 3 Seconds, - - Right [id number] amputation is noted Skin: No rashes, No breakdown Neurological: Cranial nerves II-XII grossly intact, Neuro grossly intact, Sensory exam intact to light touch and pain Psych/Mental Status: Normal Affect, Appropriate, Alert and oriented to time, place, person, mood and affect Vital Signs Temp Pulse Resp BP Pulse Ox 98.9 F 82 18 132/85 H 100 09/21/18 15:36 09/21/18 15:36 09/21/18 15:36 09/21/18 15:36 09/21/18 15:36 Oxygen Delivery Method [5] Room Air Oxygen Delivery Method [4] Room Air Oxygen Delivery Method [3] Room Air Oxygen Delivery Method [2] Room Air Oxygen Delivery Method [1 ( Room Air Initial Baseline)] Oxygen Delivery Method Room Air Weight: 75.8 kg Body Mass Index (BMI) 26.9 Intake and Output for Last 24 Hours 09/19/18 09/20/18 09/21/18 23:59 23:59 23:59 Intake Total 490 / 490 5826 / 5826 1387 / 1387 Output Total 525 / 525 3600 / 3600 1105 / 1105 Balance -35 / -35 2226 / 2226 282 / 282 Microbiology Past 72 Hours 09/19/18 20:55 Urine Culture - Preliminary Urine, Nephrostomy Culture exhibits no growth. Medical Necessity - Tobacco Use Smoking Status: Never smoker Tobacco Use: Non-smoker Assessment/Plan All Active Problems Recurrent UTI (Acute) Pelvic mass in female (Acute) puncture wound from cat left upper cheek (Resolved) Cellulitis of left external cheek (Resolved) Cellulitis (Resolved) #1 cystitis-Proteus mirabilis-I would advise completing 3 days of IV antibiotics, patient had a nephrostomy tube placed and there is a urine culture from the nephrostomy tube pending at this time. #2 acute kidney injury-BMP will be repeated tomorrow #3 pelvic mass suspected to be recurrent uterine cancer, patient will have a biopsy performed tomorrow by urology. #4 depression-patient is on Effexor Code Visit Inpatient E&M: 99904 Subs Hosp L2
--- NOTE | 2018-09-21 17:23 | PCM.PROGNOTE ---
Patient Problems: Active and Suspected Problems Recurrent UTI (Acute) Pelvic mass in female (Acute) Subjective: Patient was seen and examined today, she underwent a biopsy of her pelvic mass by urology today. Patient has no complaints of any fever or chills to this examiner, patient's urine culture from her nephrostomy tube shows no growth. - Physical Exam General: Alert, Oriented x3, Cooperative, No apparent distress, Well developed HEENT: Atraumatic, PERRLA, EOMI, Normocephalic Oral: Moist Mucosa Neck: Supple, Trachea Midline, Thyroid Normal Size and Texture Lungs: Clear to auscultation, Normal air movement, No rhonchi, No wheeze, No rales Cardiovascular: Regular rate, Regular Rhythm, Normal S1, Normal S2, No murmurs Abdomen: Bowel Sounds Present, Soft, Non Tender, Non-Distended, - - Colostomy in place Skin: No rashes, No breakdown Neurological: Cranial nerves II-XII grossly intact, Neuro grossly intact, Muscle tone normal, Sensory exam intact to light touch and pain, Coordination normal Psych/Mental Status: Normal Affect, Appropriate, Alert and oriented to time, place, person, mood and affect Vital Signs Temp Pulse Resp BP Pulse Ox 98.9 F 82 18 132/85 H 100 09/21/18 15:36 09/21/18 15:36 09/21/18 15:36 09/21/18 15:36 09/21/18 15:36 Oxygen Delivery Method [5] Room Air Oxygen Delivery Method [4] Room Air Oxygen Delivery Method [3] Room Air Oxygen Delivery Method [2] Room Air Oxygen Delivery Method [1 ( Room Air Initial Baseline)] Oxygen Delivery Method Room Air Weight: 75.8 kg Body Mass Index (BMI) 26.9 Intake and Output for Last 24 Hours 09/19/18 09/20/18 09/21/18 23:59 23:59 23:59 Intake Total 490 / 490 5826 / 5826 1387 / 1387 Output Total 525 / 525 3600 / 3600 1105 / 1105 Balance -35 / -35 2226 / 2226 282 / 282 Microbiology Past 72 Hours 09/19/18 20:55 Urine Culture - Preliminary Urine, Nephrostomy Culture exhibits no growth. Medical Necessity - Tobacco Use Smoking Status: Never smoker Tobacco Use: Non-smoker Assessment/Plan All Active Problems Recurrent UTI (Acute) Pelvic mass in female (Acute) puncture wound from cat left upper cheek (Resolved) Cellulitis of left external cheek (Resolved) Cellulitis (Resolved) #1 cystitis-Proteus mirabilis-patient will complete 3 days of IV antibiotics #2 acute kidney injury-BMP is improved, I will repeat her BMP tomorrow #3 pelvic mass suspected to be recurrent uterine cancer, patient had a biopsy today from urology #4 depression-patient is on Effexor Code Visit Inpatient E&M: 75462 Subs Hosp L2
[2018-09-21] MEDS: Acetaminophen 325 MG Tablet 650 MG PO (23:10)
[2018-09-22] MEDS: 0.9% Normal Saline 1,000 ML 125 ML IV (00:29)
[2018-09-22 04:26] VITALS: BP 139/92; PULSE 80; RESP 16; TEMP 36.8; O2SAT 98
[2018-09-22 06:13] LABS: Anion Gap 9 (5-15); BUN 18 mg/dL (7-18); BUN/Creat Ratio 13.7 RATIO (10-20); Calcium,Total 8.2 mg/dL (8.5-10.1); Chloride 117 mmol/L (98-107); Creatinine, Serum 1.31 mg/dL (0.55-1.02); EST Glomerular Filtration Rate 44 mL/min (>60); Est Glom Filt Rate - Afr Amer 53 mL/min (>60); Estimated Creatinine Clearance 41.15 ml/min; Glucose 88 mg/dL (74-106); Potassium 3.8 mmol/L (3.5-5.1); Sodium Level 147 mmol/L (136-145)
[2018-09-22] MEDS: Oxybutynin 5 MG Tablet PO (06:28)
[2018-09-22 07:33] VITALS: O2SAT 96
--- NOTE | 2018-09-22 08:00 | DS.PCM_ITS ---
Discharge Date and Diagnosis - Problem List Patient Problems: Active and Suspected Problems Recurrent UTI (Acute) Pelvic mass in female (Acute) Date of Admission: 09/19/18 Date of Discharge: 09/22/18 - Primary Discharge Diagnosis Active and Suspected Problems Recurrent UTI (Acute) Pelvic mass in female (Acute) - Secondary Discharge Diagnosis Chronic Problems Colostomy in place (Chronic) Back pain (Chronic) Presence of IVC filter (Chronic) ureteral stents (Chronic) Rupture of bowel (Chronic) Cervical cancer (Chronic) Hospital Course and Treatment Consultations 09/19/18 14:09 Consult: Onc/Wound/director of market analysis Routine Comment: Operations: None, - - Left nephrostomy placement and pelvic exam with biopsy pelvic mass. Summary of Care Provided: The patient is a 62 year old female with a history of cervical cancer in the past with radiation treatment and chemotherapy, presents office with recurrent UTIs after one UTI was treated then she can persisted so we did a CAT scan demonstrated hydronephrosis and a solitary left kidney and large pelvic mass. She was taken to the operating room was not able to place a stent so nephrostomy tube was placed which was draining quite well creatinine came back down to 1.9. She then underwent a cystoscopy and a transvaginal biopsy of this pelvic mass she had some bleeding for 1 day within the bleeding stopped she is now going to go home with the nephrostomy tube in place wearing to wait for the pathology and give her a call back and arrange for follow-up probably with oncology most likely has recurrence. Final pathology is pending. Patient Problems: Active and Suspected Problems Recurrent UTI (Acute) Pelvic mass in female (Acute) - Physical Exam General: Alert, Oriented x3, Cooperative HEENT: Atraumatic, PERRLA, EOMI, Normocephalic Neck: Supple, No JVD, Negative Carotid Bruits Lungs: Clear to auscultation, Normal air movement Cardiovascular: Regular rate, No murmurs Abdomen: Bowel Sounds Present, Soft, Non Tender Extremities: No edema, Capillary Refill Less than 3 Seconds Skin: No rashes, No breakdown Musculoskeletal: No Tenderness to Palpation of Joints or Extremities Neurological: Cranial nerves II-XII grossly intact Psych/Mental Status: Normal Affect, Appropriate Vital Signs Temp Pulse Resp BP Pulse Ox 98.3 F 80 16 139/92 H 98 09/22/18 04:26 09/22/18 04:26 09/22/18 04:26 09/22/18 04:26 09/22/18 04:26 Oxygen Delivery Method [5] Room Air Oxygen Delivery Method [4] Room Air Oxygen Delivery Method [3] Room Air Oxygen Delivery Method [2] Room Air Oxygen Delivery Method [1 ( Room Air Initial Baseline)] Oxygen Delivery Method Room Air Weight: 75.8 kg Body Mass Index (BMI) 26.9 Intake and Output for Last 24 Hours 09/20/18 09/21/18 09/22/18 23:59 23:59 23:59 Intake Total 5826 / 5826 3340 / 3340 913 / 913 Output Total 3600 / 3600 2130 / 2130 750 / 750 Balance 2226 / 2226 1210 / 1210 163 / 163 Microbiology Past 72 Hours 09/19/18 20:55 Urine Culture - Preliminary Urine, Nephrostomy Culture exhibits no growth. Laboratory Tests Past 24 Hrs 09/22/18 05:16 Sodium 147 H Potassium 3.8 Chloride 117 H Carbon Dioxide 21.0 Anion Gap 9 BUN 18 Creatinine 1.31 H Estim Creat Clear Calc 41.15 Est GFR (MDRD) Af Amer 53 L Est GFR (MDRD) Non-Af 44 L BUN/Creatinine Ratio 13.7 Glucose 88 Calcium 8.2 L Discharge Diet: Light diet - advance as tolerated Discharge Activity: Return to Normal Activity, May not drive while taking narcotic pain medications. May shower in (days): 1 Lifting Restrict to (lbs):: 1 Call your doctor if your incision/area has: Sudden Increased Bleeding Call your doctor if you observe: Fever of 101 or Higher Suture Line Care: Avoid Pulling/Pushing, Avoid Pinching/Bending Additional Dressing/Incision Instructions:: I home with nephrostomy tube, needs to flush the tube once a day with 5 cc of sterile saline nursing staff will teach family how to flush. Needs to secure the bag to her leg or clothing to prevent it from pulling out. Home Medications: Medications to take at Discharge Oxybutynin Chloride [Ditropan Xl] 5 mg PO TID 11/20/14 Venlafaxine XR [Effexor Xr] 75 mg PO DAILY 11/20/14 Acetaminophen [Tylenol Extra Strength] 500 - 1,000 mg PO Q6H PRN PRN 09/19/18 Biotin 300 mcg PO DAILY 09/19/18 Primary Care Physician: Care Physician,No Primary [Primary Care Provider] - Please Follow Up With: Magdi Paulson MD When: Call in a week if I have not heard anything Medical Necessity - Tobacco Use Smoking Status: Never smoker Tobacco Use: Non-smoker Meaningful Use Info Meaningful Use Diagnoses (Choose all that apply): None applicable
--- NOTE | 2018-09-22 08:31 | NURSING ---
Was consulted to see patient for colostomy. pt states she has had her colostomy since 2001 and has done her own care for years. patient states she just changed her appliance this am. denies needing any assistance. pt hoping to be discharged home today. has long history of surgeries and hospitalizations.
[2018-09-22 09:34] VITALS: BP 137/70; PULSE 85; RESP 14; TEMP 37; O2SAT 100
[2018-09-22] MEDS: Venlafaxine XR 75 MG Capsule PO (09:41)
[2018-09-22] MEDS: Famotidine 20 MG Tablet PO (09:41)
--- NOTE | 2018-09-22 12:33 | DCINST_ITS ---
- Discharge Diagnoses Current Active Problems: Current Active and Chronic Problems Recurrent UTI (Acute) Pelvic mass in female (Acute) You will use the following diet at home:: No restrictions Your food should be the consistency of: Regular Your liquids should be the consistency of: Regular/Thin Discharge Activity: Return to Normal Activity, May not drive while taking narcotic pain medications. May shower in (days): 1 Weight Bearing Status: Full weight bearing Call your doctor if your incision/area has: Sudden Increased Bleeding Call your doctor if you observe: Fever of 101 or Higher Suture Line Care: Avoid Pulling/Pushing, Avoid Pinching/Bending Additional Dressing/Incision Instructions:: I home with nephrostomy tube, needs to flush the tube once a day with 5 cc of sterile saline nursing staff will teach family how to flush. Needs to secure the bag to her leg or clothing to prevent it from pulling out. Allergies/Adverse Reactions: Allergies Penicillins Allergy (Verified 09/19/18 08:40) Rash hydrocodone bitartrate [From Vicodin] Adverse Reaction (Verified 09/19/18 08:40) Nausea Sulfa (Sulfonamide Antibiotics) Adverse Reaction (Verified 09/19/18 08:40) Vomiting Medications to take at Discharge Oxybutynin Chloride [Ditropan Xl] 5 mg PO TID 11/20/14 Venlafaxine XR [Effexor Xr] 75 mg PO DAILY 11/20/14 Acetaminophen [Tylenol] 500 - 1,000 mg PO Q6H PRN PRN 09/19/18 Biotin 300 mcg PO DAILY 09/19/18 Primary Care Physician: Care Physician,No Primary [Primary Care Provider] - Please follow up with your Primary Care Physician in: in 2-3 weeks Test Results: Test results from this visit will be discussed in further detail at your follow- up appointment, if applicable. Please Follow Up With: Magdi Paulson MD When: Call in a week if I have not heard anything
--- NOTE | 2018-09-22 19:19 | PCM.PROGNOTE ---
Subjective: Patient was seen and examined today, she has been cleared for discharge by urology today. Patient is not running a temperature, her urine culture from her urostomy tube was negative for growth. - Physical Exam General: Alert, Oriented x3, Cooperative, No apparent distress, Well developed, Well nourished HEENT: Atraumatic, PERRLA, EOMI, Normocephalic Oral: Moist Mucosa Neck: Supple, Trachea Midline, Thyroid Normal Size and Texture Lungs: Clear to auscultation, Normal air movement, No rhonchi, No wheeze, No rales Cardiovascular: Regular rate, Regular Rhythm, Normal S1, Normal S2, No murmurs Abdomen: Bowel Sounds Present, Soft, Non Tender, Non-Distended, No hernias noted Extremities: No clubbing, No cyanosis, Capillary Refill Less than 3 Seconds, - - Right [id number] amputation is noted Skin: No rashes Neurological: Cranial nerves II-XII grossly intact, Neuro grossly intact, Sensory exam intact to light touch and pain Psych/Mental Status: Normal Affect, Appropriate, Alert and oriented to time, place, person, mood and affect Vital Signs Temp Pulse Resp BP Pulse Ox 98.6 F 85 14 137/70 H 100 09/22/18 09:34 09/22/18 09:34 09/22/18 09:34 09/22/18 09:34 09/22/18 09:34 Oxygen Delivery Method [5] Room Air Oxygen Delivery Method [4] Room Air Oxygen Delivery Method [3] Room Air Oxygen Delivery Method [2] Room Air Oxygen Delivery Method [1 ( Room Air Initial Baseline)] Oxygen Delivery Method Room Air Weight: 75.8 kg Body Mass Index (BMI) 26.9 Intake and Output for Last 24 Hours 09/20/18 09/21/18 09/22/18 23:59 23:59 23:59 Intake Total 5826 / 5826 3340 / 3340 913 / 913 Output Total 3600 / 3600 2130 / 2130 750 / 750 Balance 2226 / 2226 1210 / 1210 163 / 163 Microbiology Past 72 Hours 09/19/18 20:55 Urine Culture - Final Urine, Nephrostomy Culture exhibits no growth. Laboratory Tests Past 24 Hrs 09/22/18 05:16 Sodium 147 H Potassium 3.8 Chloride 117 H Carbon Dioxide 21.0 Anion Gap 9 BUN 18 Creatinine 1.31 H Estim Creat Clear Calc 41.15 Est GFR (MDRD) Af Amer 53 L Est GFR (MDRD) Non-Af 44 L BUN/Creatinine Ratio 13.7 Glucose 88 Calcium 8.2 L Medical Necessity - Tobacco Use Smoking Status: Never smoker Tobacco Use: Non-smoker Assessment/Plan All Active Problems Recurrent UTI (Acute) Pelvic mass in female (Acute) puncture wound from cat left upper cheek (Resolved) Cellulitis of left external cheek (Resolved) Cellulitis (Resolved) #1 cystitis-Proteus mirabilis-patient has received 3 days of IV antibiotic treatment, patient's urine culture from her nephrostomy tube showed no growth #2 acute kidney injury-BMP is improved #3 pelvic mass suspected to be recurrent uterine cancer, biopsy is pending #4 depression-patient is on Effexor Code Visit Inpatient E&M: 59046 Subs Hosp L2
== END 2018-09-22 14:35 | disposition home or self-care (01) | DRG 690 ==
LOC: SDC 14:40 → MS3 14:40
PROVIDERS: Internal Medicine; Admitting Provider Urology; Referring Provider Urology; Visit Provider Internal Medicine
PROC: 0TJB8ZZ Inspection of Bladder, Via Natural or Artificial Opening Endoscopic (ICD-10-PCS; principal; 2018-09-19 13:10)
DX: N13.6 Pyonephrosis (principal); R19.00 Intra-abdominal and pelvic swelling, mass and lump, unspecified site; N17.9 Acute kidney failure, unspecified; B96.4 Proteus (mirabilis) (morganii) as the cause of diseases classified elsewhere; F32.9 Major depressive disorder, single episode, unspecified; N30.90 Cystitis, unspecified without hematuria; Z89.611 Acquired absence of right leg above knee; Z93.3 Colostomy status; Z87.440 Personal history of urinary (tract) infections; M54.9 Dorsalgia, unspecified; Z90.5 Acquired absence of kidney; Z95.828 Presence of other vascular implants and grafts; Z92.3 Personal history of irradiation; Z85.41 Personal history of malignant neoplasm of cervix uteri; R39.15 Urgency of urination; R30.0 Dysuria; R10.9 Unspecified abdominal pain
CPT/HCPCS: 36415; 50432; 74018; 74176; 80048; 80053; 81001; 82962; 85025; 85610; 87077; 87086; 87088; 87186; 88307; 88325; 88341; 88342; 97162; 97802; 99156; 99157; J7030; J7120; C1769; J2405

== ENCOUNTER → 2018-10-01 08:35 | Outpatient (CLI) | payer MEDICARE, SELFPAY ==
[2018-09-29 11:32] VITALS: BMI 17.5
--- NOTE | 2018-10-01 08:37 | NM_ITS ---
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 WHOLE BODY 99m Tc MDP RADIONUCLIDE BONE SCINTIGRAPHY COMPARISON: CT of the abdomen-pelvis report 09/18/2018 FINDINGS: Following the intravenous administration of 25.6 mCi of 99m Tc MDP, whole body bone images reveal: 1. Increased radiopharmaceutical concentration is identified in the acromioclavicular and glenohumeral compartments of both shoulders, visualized bilateral elbows, the left knee, fifth lumbar vertebra posteriorly on the left and right, upper cervical spine posteriorly on the left, left posterior sacrum without evidence of increased uptake noted on anterior projections. 2. The remaining skeletal structures are scintigraphically unremarkable with a normal-appearing left renal image and urinary bladder activity identified. 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 There is evidence of hyperostosis frontalis. Facilitated uptake is visualized in the bilateral maxilla and right mandible most consistent with periodontal disease and/or periostitis. There is a right ubnnu-ien-zere amputation visualized with the amputation stump demonstrating no evidence of significant facilitated tracer distribution. NM/Bone Scan Whole Body IMPRESSION: 1. The increase in radiopharmaceutical concentration identified in the bilateral shoulder and elbow articulations, left knee, cervical and lumbar spine, left posterior sacrum is most consistent with degenerative arthritis. 2. Meticulous attention paid to the anterior sacrum demonstrates no evidence of abnormal increased radiotracer concentration to correlate with radiographic changes reported on CT of the abdomen and pelvis dated 09/18/2018. There is no typical scintigraphic evidence of diffuse axial skeletal metastatic disease on the current examination. Electronically Signed: Sukhdev Crawford DO at 10:13 EDT Tel , Service support ,
== END ==
LOC: NM 08:36
PROVIDERS: Referring Provider Internal Medicine Hematology & Oncology; Visit Provider Internal Medicine Hematology & Oncology
DX: R93.89 Abnormal findings on diagnostic imaging of other specified body structures (principal)
CPT/HCPCS: 78306

== ENCOUNTER → 2018-11-14 12:03 | Outpatient (CLI) | payer MEDICARE, SELFPAY ==
[2018-09-29 11:32] VITALS: BMI 17.5
[2018-11-14 12:52] LABS: Prothrombin Time (Protime)PT. 12.9 SECONDS (11.7-14.9)
== END ==
PROVIDERS: Referring Provider Urology; Visit Provider Urology
DX: Z86.718 Personal history of other venous thrombosis and embolism (principal); N13.39 Other hydronephrosis
CPT/HCPCS: 36415; 85610

== ENCOUNTER 2024-06-22 08:00 | Outpatient (RCR) | payer MEDICARE, SELFPAY ==
--- NOTE | 2024-04-28 07:33 | HP.PTEVAL ---
Patient's Visit Information Visit Information Visit Information: VICTOR MANUEL WILLOUGHBY is a 68 year old F referred to Physical Therapy by Dr. 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 Date of Evaluation: 04/27/24 Physical Therapist: Karolyn Diaz MPT Visit Plan Frequency: 2-3x /Week Duration: 3 Months Plan: Be careful of the nephrostomy bag on the L side of Lumbar spine and pt has a colostomy bag as well. 2-3X/ week for 12 weeks to work on R hip and core strength, standing upright posture and balance, functional transfers such as sit to stand and mat table to wheelchair (control instead of quick movements), gait training with new prosthesis starting in // bars and progressing to walker etc. Give HEP strengthening as well HEP: standing up tall at the sink instead of flexed trunk, lying supine to stretch out hip flexor, bridges to work on glut strength Subjective Subjective: The amputation is 15 years old but this is a new prosthesis. She lost weight and the prosthesis kept falling off and so she got a new one. She got the new leg 02-21-24. She has had some illness etc and had a hard time coming to PT but now she is ready to do PT. Robbi rodriguez [facility] wants to come down sometime to make sure it is fitting. She has a hard time knowing if her leg is secure inside the prosthesis. She wants to walk and not have to walk hunched over. She has been using a wheelchair at home. Her prosthetic leg gets in the way. She hops around the house with one leg. She has not walked outside in 15 years. She reports that her leg never felt comfortable enough to walk much on it and was afraid of falling. She has a plate in her car that she can drive L footed. She has never been taught any exercises that she can do at home. She gets pain on the L medial knee that comes and goes. She showers on one leg and can get into the shower herself with a shower chair. She has two chairs, one in the house and one in the garage. 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 Objective Objective: LE MMT: R hip flex 6.6 and L 15.3 L knee flex 20.3 L knee ext 15.3 Sit to stand: uses B arms on the // bars to pull self up. Had pt sit in a chair and try and use one arm on the chair rail to get up and she ended up trying to use her other arm on the // bar to pull herself upwards Standing posture is flexed at the trunk holding onto the // bars. Pt was able to walk the length of the // bars twice using B UE's and CGA with decreased heel strike and prosthesis giving out twice and using her arms to help hold herself up. (pt admits to not knowing how to hold her hip to help control the prosthetic knee). Pt is able to transfer from the wheelchair to a mat table with CGA.... she tends to just throw herself over to the mat as opposed to being controlled. Going back from the mat to the chair pt went too fast and got her prosthetic leg caught up with her good leg and almost fell FW out of the chair but therapist had her by the belt to get her back into the chair. Supine lying: pt does not have R full hip extension AROM. She is able to lay on her belly and has weak B hip extensors and unable to raise R hip into extension without assistance. Balance/Special Test Scores Lower Extremity Functional Score: 32 Goals Goal 1:: I HEP Goal Time Frame: 8-12 Weeks Goal 2:: Be able to walk 100 feet with rolling walker with good gait mechanics and consistent heel strike with CGA Goal Time Frame: 8-12 Weeks Goal 3:: Be able to walk the length of the // bars 4 times in a row without having her Prosthetic give out on her with CGA Goal Time Frame: 4-6 Weeks Goal 4:: Be able to get up from a chair with 1 arm and stand with 1 UE support with CGA Goal Time Frame: 4-6 Weeks Rehabilitation Potential Rehabilitation Potential: Good Anticipated Interventions Patient/Client Instruction: Educate patient on: Condition and Plan of Care For the Purpose of:: To improve nutrient delivery to tissue, To improve muscle performance and motor function, To improve ability to perform ADL's, To increase tolerance to activity/condition/position, To improve performance and independence with ADL's, To decrease level of supervision to perform tasks, To improve ability of physical actions for home/community/work/leisure, To improve gait and locomotor functions, To improve health of tissue, To decrease soft tissue restriction, To increase flexibility/ROM, To improve endurance, To improve balance and To improve safety with gait Therapeutic Exercise to Include: Strength training, Endurance training, Postural training, Flexibilty training, Gait and locomotor training, Neuromotor development, Passive ROM, Active ROM, Dynamic Lumbar Stabilization and Scapular Strength/Stabilization For the Purpose of:: To increase ROM, To improve nutrient delivery to tissue, To improve muscle performance and motor function, To improve ability to perform ADL's, To increase tolerance to activity/condition/position, To improve performance and independence with ADL's, To decrease level of supervision to perform tasks, To improve ability of physical actions for home/community/work/leisure, To improve gait and locomotor functions, To improve health of tissue, To decrease soft tissue restriction, To increase flexibility/ROM, To improve endurance, To improve balance, To improve safety with gait and To assume or resume ADL's Functional Training to Include: Gait training For the Purpose of:: To improve gait and locomotor functions and To improve safety with gait Manual Therapy Techniques to Include: Passive ROM For the Purpose of:: To increase ROM, To improve health of tissue, To decrease soft tissue restriction and To increase flexibility/ROM Text: Thank you for the opportunity to evaluate your patient. For Medicare and Medicare HMO plans, please review the plan of care and approve it. It will need to be FAXED BACK to us at [phone] for Medicare purposes. For Medicare only, by signing this I certify the plan of care. Please let me know if there are questions or concerns regarding this plan of care. Physician Signature: Date:
--- NOTE | 2024-12-01 08:29 | HP.PT.NRP ---
Patient Information Patient Information: VICTOR MANUEL WILLOUGHBY was seen in my office for initial evaluation on 04/27/24. The following Plan of Care was established for this patient: POC Established Initial Frequency: 2-3x /Week Initial Duration: 3 Months Anticipated Interventions Patient/Client Instruction: Educate patient on: Condition and Plan of Care For the Purpose of:: To improve nutrient delivery to tissue, To improve muscle performance and motor function, To improve ability to perform ADL's, To increase tolerance to activity/condition/position, To improve performance and independence with ADL's, To decrease level of supervision to perform tasks, To improve ability of physical actions for home/community/work/leisure, To improve gait and locomotor functions, To improve health of tissue, To decrease soft tissue restriction, To increase flexibility/ROM, To improve endurance, To improve balance and To improve safety with gait Therapeutic Exercise to Include: Strength training, Endurance training, Postural training, Flexibilty training, Gait and locomotor training, Neuromotor development, Passive ROM, Active ROM, Dynamic Lumbar Stabilization and Scapular Strength/Stabilization For the Purpose of:: To increase ROM, To improve nutrient delivery to tissue, To improve muscle performance and motor function, To improve ability to perform ADL's, To increase tolerance to activity/condition/position, To improve performance and independence with ADL's, To decrease level of supervision to perform tasks, To improve ability of physical actions for home/community/work/leisure, To improve gait and locomotor functions, To improve health of tissue, To decrease soft tissue restriction, To increase flexibility/ROM, To improve endurance, To improve balance, To improve safety with gait and To assume or resume ADL's Functional Training to Include: Gait training For the Purpose of:: To improve gait and locomotor functions and To improve safety with gait Manual Therapy Techniques to Include: Passive ROM For the Purpose of:: To increase ROM, To improve health of tissue, To decrease soft tissue restriction and To increase flexibility/ROM Last Seen Last Seen: This patient was last seen in our office 06/22/24. Pertinent comments regarding their Physical therapy will appear below: [facility] PT At this point I will be discontinuing this patient from physical therapy. I would be happy to see this patient again in the future if found appropriate by the physician. Thank you! Karolyn Diaz, MPT Balance/Gait/Functional tests Balance/Special Test Scores Lower Extremity Functional Score: 32
== END 2024-06-22 19:00 | disposition home or self-care (01) ==
LOC: PT 08:00
PROVIDERS: PCP Family Medicine; Referring Provider Family Medicine; Visit Provider Family Medicine
DX: Z89.611 Acquired absence of right leg above knee (principal)
CPT/HCPCS: 97110; 97116; 97161

== ENCOUNTER → 2025-01-04 | Outpatient (CLI) | payer MEDICARE, SELFPAY ==
[2025-01-04 13:09] LABS: Albumin, Serum 4.2 g/dL (3.4-4.8); Anion Gap 13 (5-15); BUN 42 mg/dL (4-19); BUN/Creat Ratio 15.5 RATIO (10-20); Calcium,Total 9.4 mg/dL (7.6-11.0); Carbon Dioxide 19.5 mmol/L (21.0-32.0); Chloride 110 mmol/L (98-108); Glucose 141 mg/dL (70-99); Potassium 4.6 mmol/L (3.3-5.1)
== END | disposition home or self-care (01) ==
LOC: LAB 10:29
PROVIDERS: PCP Family Medicine; Referring Provider Internal Medicine Nephrology; Visit Provider Internal Medicine Nephrology
DX: N18.5 Chronic kidney disease, stage 5 (principal)
CPT/HCPCS: 36415; 80069

== ENCOUNTER → 2025-02-05 | Outpatient (CLI) | payer MEDICARE, SELFPAY ==
--- OUTSIDE RECORDS SUMMARY | 2025-02-05 15:45 | XMS RPT_ITS | CCD ---
Author Organization [facility] CliniSyde Care Team Providers Care Employee Communications Coordinator Name Role Phone Unavailable Primary Care Provider Unavailabl e Bharathi DO, [facility] Primary Care Provid er Bharathi DO, [facility] Primary Care [facility] er Edgar ECKERT, Zeenat Unavailable [facility], [facility] Primary Care Unavai lable PROVIDER, UNKNOWN Referring Unavailable PROVIDER, UNKNOWN Attending Unavailable PROVIDER, UNKNOWN Admitting Unavailable [facility] Primary Care Unavaivette labalvaro GARVIN, [facility] Attending Unavai lable BHARATHI, [facility] Primary Care Unavai lable BHARATHI, [facility] Attending Unavai lable BHARATHI, [facility] Primary Care Unavai labalvaro GARVIN, [facility] Referring Unavai lable BHARATHI, [facility] Primary Care Unavai lable BHARATHI, [facility] Attending Unavai lable BHARATHI, [facility] Primary Care Unavai lable BHARATHI, [facility] Referring Unavai lable BHARATHI, [facility] Primary Care Unavaivette labalvaro MANNRIO, [facility] Attending Unavai lable BHARATHI, [facility] Primary Care Unavai lable PROVIDER, UNKNOWN Referring Unavailable PROVIDER, UNKNOWN Attending Unavailable PROVIDER, UNKNOWN Admitting Unavailable AGUSTIN GROSS Consulting Unavailable JUNIE TILLEY Attending Unavailable LAURYN LIU II Admitting Unavailable [facility], [facility] Primary Care UnavaRAFI Ocasio Consulting Unavailable HAZEL TAPIA Attending Unavailable LATIA ARCHIBALD Admitting Unavaila ble [facility], [facility] Primary Care Unavai lable BHARATHI, [facility] Primary Care Unavai lable AUDRA-JULIA, LATIA Referring Unavailab le AUDRA-JULIA, LATIA Attending Unavailab le AUDRA-JULIA, LATIA Admitting Unavailab le [facility] Unavai lable PROVIDER, UNKNOWN Attending Unavailable PROVIDER, UNKNOWN Admitting Unavailable [facility] Unavai lable PROVIDER, UNKNOWN Referring Unavailable PROVIDER, UNKNOWN Attending Unavailable PROVIDER, UNKNOWN Admitting Unavailable [facility] Unavai lable PROVIDER, UNKNOWN Attending Unavailable PROVIDER, UNKNOWN Admitting Unavailable [facility] Unavai lable AUDRA-JULIA, LATIA Referring Unavailab le AUDRA-JULIA, LATIA Attending Unavailab le AUDRA-JULIA, LATIA Admitting Unavailab le KeiryMarcela Attending Unavailable [facility] Unavailable Marcela Ricci Referring Unavailable [facility] Referring [facility]available [facility] Attending Unavailable [facility] Unavailable Allergies Allergy Classification Reported Allergen(s) Allergy Type Date of Onset Reaction(s) Facility Acetaminophen / HYDROcodone (1 source) Acetaminophen / HYDROcodone Drug Allergy 9 [facility] Penicillins (antibiotic) (1 source) Penicillins Drug Allergy 9 [facility] Sulfonamides (antibiotic) (1 source) Sulfonamides (Antibiotic) Drug Allergy 9 [facility] (20 sources) Acetaminophen / HYDROcodone; Translations: [HYDROCODONE-ACET AMINOPHEN] Drug Allergy 9 [facility] (2 sources) Penicillins; Translations: [PENICILLINS] Drug Allergy 9 [facility] (20 sources) Sulfonamides (Antibiotic); Translations: [SULFA (SULFONAMIDE ANTIBIOTICS)] Drug Intolerance 9 [facility] (16 sources) Penicillins Drug Allergy 9 [facility] (7 sources) cefdinir; Translations: [CEFDINIR] Drug Allergy 4 [facility] (4 sources) Penicillins Drug Allergy 9 [facility] (2 sources) HYDROcodone; Translations: [hydrocodone bitartrate] Drug Allergy 9 Nausea [facility] (1 source) Penicillins Propensity to adverse reactions 9 Rash [facility] (1 source) Sulfonamides (Antibiotic) Propensity to adverse reactions 9 Vomiting [facility] (1 source) Penicillins Drug allergy (disorder) 9 [facility] (1 source) Sulfonamides (Antibiotic) Drug allergy (disorder) 9 [facility] Medications Current Medications Medication Drug Class(es) Dates Sig (Normalized) Sig (Original) acetaminophen 500 mg oral tablet (20 sources) Start: 09-19-2018 take 500-1000 mg by mouth every six hours as needed for pain Acetaminophen 50 0 mg cap Take by mouth. Active Comment on above: Take by mouth. Biotin (18 sources) Start: 09-19-2018 take 1 tablet by eric th once daily biotin 300 mcg t ab Take 300 mcg by mouth. Active Comment on above: Take 300 mcg by mout h. cefdinir 300 mg oral capsule (3 sources) Cephalosporin Antibacterial Start: 02-05-20 take 1 capsule by mouth once daily cefdinir (OMNICEF) 300 mg capsule Take 1 capsule by mouth once daily. 7 capsule 02/05/2024 Active Multivitamin 1 EACH tablet (1 source) Start: 09-24-19 MULTIVITAMIN ORAL (13 sources) MULTIVITAMIN ORA L Take by mouth. Vitafusion Active MULTIVITAMIN ORA L Take by mouth. Vitafusion 0 Active nitrofurantoin, macrocrystals 25 mg / nitrofurantoin, monohydrate 75 mg oral capsule (1 source) Nitrofuran Antibacterial Start: 08-22-2023 End: 08-27-2023 take 1 capsule by mouth twice daily at mealtime nitrofurantoin monohydrate and macrocrystal (MACROBID) 100 mg capsule Indications: Acute UTI Take 1 capsule by mouth two times a day for 5 days. WITH FOOD. 10 capsule 0 08/22/2023 08/27/2023 Active 24 hr oxybutynin chloride 15 mg extended release oral tablet (1 source) Cholinergic Muscarinic Antagonist Start: 11-20-2014 take 5 mg by mouth three times daily predniSONE 20 mg oral tablet (6 sources) Start: 02-13-2024 take 1 tablet by mouth once daily predniSONE (DELTASONE) 20 mg tablet Indications: Allergic dermatitis Take 1 tablet by mouth once daily. 5 tablet 02/13/2024 Active 125 ml sodium chloride 9 mg/ml prefilled syringe (11 sources) Start: 11-10-2024 End: 11-10-2025 sodium chloride 0.9 %, flush, (NORMAL SALINE FLUSH) syringe 2-10 mL every 12 hours. 600 mL 11/10/2024 12/10/2024 Active Start: 02-14-2022 End: 02-09-2023 sodium chloride 0.9 %, flush , (NORMAL SALINE FLUSH) syringe Indications: Hydronephrosis, unspecified hydronephrosis type 10 mL once daily. USE DIRECTED 300 mL 11 02/14/2022 02/09/2023 Start: 04-26-2021 End: 01-18-2022 sodium chloride 0.9 %, flush , (NORMAL SALINE FLUSH) syringe Indications: Hydronephrosis, unspecified hydronephrosis type 10 mL once daily. USE DIRECTED 100 mL 5 04/26/2021 01/18/2022 Discontinued Start: 03-24-2021 End: 04-26-2021 sodium chloride 0.9 %, flush , (NORMAL SALINE FLUSH) syringe Indications: Hydronephrosis, unspecified hydronephrosis type USE DIRECTED 10 mL 2 03/24/2021 04/26/2021 Discontinued Comment on above: USE DIRECTED 10 mL once daily. US E DIRECTED 24 hr venlafaxine 37.5 mg extended release oral capsule (20 sources) Serotonin and Norepinephrine Reuptake Inhibitor Start: 06-13-19 24 take 1 capsule by mouth every hour venlafaxine ER (EFFEXOR XR) 37.5 mg 24 hr capsule Take 1 capsule by mouth every afternoon. 06/13/2023 Active Start: 11-20-2014 take 1 capsule by mo ut once daily take 1 capsule by mo uth once daily venlafaxine ER (EFFEXOR XR) 75 mg 24 hr capsule Take 37.5 mg by mouth once daily. Active Comment on above: Take 75 mg by mouth once daily. Take 37.5 mg by mout h once daily. Completed/Discontinued Medications Medication Drug Class(es) Dates Sig (Normalized) Sig (Original) LORazepam 1 mg oral tablet (3 sources) Benzodiazepine Start: 02-13-2024 End: 02-20-2024 take 1 tablet by mouth every six hours as needed for anxiety LORazepam (ATIVAN) 1 mg tablet Indications: MANDEEP (generalized anxiety disorder) Take 1 tablet by mouth every 6 hours as needed for anxiety for up to 7 days. 10 tablet 02/13/2024 02/20/2024 Start: 02-05-2024 End: 02-12-2024 take 0.5 mg by mouth every eight hours as needed for anxiety and anxiety LORazepam (ATIVAN) 0.5 mg Indications: Anxiety Take 1 tablet by mouth three times a day as needed for up to 7 days. 21 tablet 02/05/2024 02/12/2024 Active triamcinolone acetonide 1 mg/ml topical cream (1 source) Corticosteroid Start: 02-13-2024 End: 02-20-2024 triamcinolone acetonide (KENALOG) 0.1 % cream Indications: Allergic dermatitis Apply to affected area three times a day for 7 days. 80 g 02/13/2024 02/20/2024 Problems Active Problems Problem Classification Problem Date Documented Da te Episodic/Chronic Abdominal pain (1 source) Flank pain; Translations: [Flank pain] Onset: 11-29-2024 Episodic Administrative/social admission (2 sources) Financial problem; Translations: [Problem related to housing and economic circumstances, unspecified] Onset: 11-10-2024 11-10-2024 Episodic Anxiety disorders (3 sources) Generalized anxiety disorder; Translations: [Generalized anxiety disorder] Onset: 01-31-2024 02-13-2024 Chronic Cancer of cervix (11 sources) Primary malignant neoplasm of uterine cervix; Translations: [Malignant neoplasm of cervix uteri, unspecified] Onset: 02-04-2024 02-04-2024 Chronic Cancer of cervix (1 source) History of malignant neoplasm of cervix; Translations: [Personal history of malignant neoplasm of cervix uteri] Episodic Chronic kidney disease (1 source) Chronic kidney disease, stage 5; Translations: [Chronic kidney disease, stage 5] Onset: 01-08-2025 Chronic Diseases of white blood cells (15 sources) Leukocytosis; Translations: [Elevated white blood cell count, unspecified] Onset: 11-18-2018 11-18-2018 Chronic Disorders of lipid metabolism (14 sources) Mixed hyperlipidemia; Translations: [Mixed hyperlipidemia] Onset: 08-25-2023 08-22-2023 Chronic Fluid and electrolyte disorders (1 source) Hyperkalemia; Translations: [Hyperkalemia] Onset: 11-29-2024 Episodic Other aftercare (1 source) 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; Translations: [jail (current) use of systemic steroids] Onset: 12-15-2024 Episodic Other bone disease and musculoskeletal deformities (8 sources) History of amputation of right leg through femur; Translations: [Acquired absence of right leg above knee] Onset: 02-27-2024 02-13-2024 Chronic Other bone disease and musculoskeletal deformities (2 sources) Acquired absence of right leg above knee; Translations: [Hx of AKA (above knee amputation), right (HCC)] Onset: 02-13-2024 Chronic Other bone disease and musculoskeletal deformities (1 source) Disorder of bone, unspecified; Translations: [Bone lesion] 09-29-2018 Episodic Other circulatory disease (1 source) Inferior vena cava filter in situ; Translations: [Presence of other vascular implants and grafts] 12-14-2014 Chronic Other connective tissue disease (1 source) Finding of limb structure; Translations: [Presence of artificial right leg (complete) (partial)] Chronic Other diseases of kidney and ureters (1 source) Occlusion of ureter; Translations: [Crossing vessel and stricture of ureter without hydronephrosis] 01-09-2023 Episodic Other diseases of kidney and ureters (2 sources) Kidney disease; Translations: [Disorder of kidney and ureter, unspecified] 10-30-2024 Episodic Other diseases of kidney and ureters (1 source) Disorder of kidney and ureter, unspecified; Translations: [Kidney disease] Onset: 11-10-2024 Episodic Other gastrointestinal disorders (18 sources) Pelvic mass; Translations: [Intra-abdominal and pelvic swelling, mass and lump, unspecified site] Onset: 10-15-2018 08-21-2023 Episodic Other gastrointestinal disorders (1 source) Rupture of intestine; Translations: [Perforation of intestine (nontraumatic)] 12-14-2014 Episodic Other nutritional; endocrine; and metabolic disorders (8 sources) Hypercalcemia; Translations: [Hypercalcemia] Onset: 02-04-2024 02-04-2024 Chronic Residual codes; unclassified (1 source) Body mass index 20-24 - normal; Translations: [Body mass index (BMI) 22.0-22.9, adult] 02-13-2024 Episodic Residual codes; unclassified (1 source) History of nephrectomy; Translations: [Acquired absence of kidney] 09-29-2018 Episodic Skin and subcutaneous tissue infections (2 sources) Cellulitis; Translations: [Cellulitis, unspecified] 09-21-2018 Episodic Spondylosis; intervertebral disc disorders; other back problems (3 sources) Backache; Translations: [Dorsalgia, unspecified] Onset: 12-15-2024 09-19-2018 Episodic Unclassified (1 source) History of amputation of right leg through femur 04-23-2024 Unclassified (1 source) ureteral stents 11-20-2014 Unclassified (1 source) Low back pain without sciatica, unspecified back pain laterality, unspecified chronicity; Translations: [Low back pain without sciatica, unspecified back pain laterality, unspecified chronicity] Onset: 11-29-2024 Urinary tract infections (13 sources) Acute urinary tract infection; Translations: [Urinary tract infection, site not specified] Onset: 02-04-2024 08-22-2023 Episodic Past or Other Problems Problem Classification Problem Date Documented Da te Episodic/Chronic Acute and unspecified renal failure (20 sources) Acute injury of kidney; Translations: [Acute kidney failure, unspecified] Onset: 11-18-2018 11-18-2018 Episodic Allergic reactions (20 sources) Allergy to penicillin; Translations: [Allergy status to penicillin] Onset: 11-18-2018 11-18-2018 Episodic Complication of device; implant or graft (20 sources) Displacement of nephrostomy tube; Translations: [Displacement of nephrostomy catheter, initial encounter] Onset: 11-16-2018 11-18-2018 Episodic Lymphadenitis (8 sources) Lymphadenopathy; Translations: [Enlarged lymph nodes, unspecified] Onset: 02-04-2024 02-04-2024 Episodic Mood disorders (1 source) Mood disorders 10-01-2021 Other diseases of kidney and ureters (20 sources) Hydronephrosis; Translations: [Unspecified hydronephrosis] Onset: 11-21-2021 Episodic Other diseases of kidney and ureters (14 sources) Stenosis of ureter; Translations: [Crossing vessel and stricture of ureter without hydronephrosis] Onset: 06-01-2020 06-01-2020 Episodic Other diseases of kidney and ureters (2 sources) Unspecified hydronephrosis; Translations: [Hydronephrosis, left] Onset: 03-11-2024 Episodic Other injuries and conditions due to external causes (14 sources) Local infection of wound; Translations: [Other injury of unspecified body region, initial encounter] Onset: 11-18-2018 11-18-2018 Episodic Other screening for suspected conditions (not mental disorders or infectious disease) (4 sources) Patient encounter status; Translations: [Encounter for screening for lipoid disorders] Onset: 09-29-2024 Episodic Residual codes; unclassified (1 source) Body mass index (BMI) 22.0-22.9, adult; Translations: [BMI 22.0-22.9, adult] Onset: 02-13-2024 Episodic Residual codes; unclassified (1 source) Acquired absence of kidney; Translations: [Status post nephrectomy] Onset: 01-31-2024 Episodic Septicemia (except in labor) (16 sources) Sepsis; Translations: [Sepsis, unspecified organism] Onset: 11-18-2018 Resolved: 02-09-2021 02-09-2021 Episodic Unclassified (1 source) puncture wound from cat left upper cheek 09-21-2018 Comment on above: puncture wound from cat left upper cheek Results Test Name Value Interpretation Reference Range Facility MRI LUMBAR SPINE WO IVCONon 01-08-2025 MRI LUMBAR SPINE WO IVCON Normal [facility] Renal Profileon 01-04-2025 Albumin [Mass/Vol] 4.2 g/dL Normal 3.4-4.8 [facility] Comment on above: Performed By: #### L 500.3600 #### [facility] [address] [place], [address] BUN/CRE 15.5 RATIO Normal 10-20 [facility] Comment on above: Performed By: #### L 500.3600 #### [facility] [address] [place], [place], [id number] Calcium [Mass/Vol] 9.4 mg/dL Normal 7.6-11.0 [facility] Comment on above: Performed By: #### L 500.3600 #### [facility] [address] [place], [address] Chloride [Moles/Vol] 110 mmol/L High 98-108 [facility] Comment on above: Performed By: #### L 500.3600 #### [facility] [address] [place], [address] CO2 [Moles/Vol] 19.5 mmol/L Low 21.0-32.0 [facility] Comment on above: Performed By: #### L 500.3600 #### [facility] [address] [place], [address] Creatinine [Mass/Vol] 2.68 mg/dL High 0.70-1.20 [facility] Comment on above: Performed By: #### L 500.3600 #### [facility] [address] [place], [address] GAP 13 Normal 5-15 [facility] Comment on above: Performed By: #### L 500.3600 #### [facility] [address] [place], [address] GFR/1.73 sq M.predicted among non-blacks MDRD (S/P/Bld) [Vol rate/Area] 19 mL/min/{1.73_m2} Low >60 [facility] Comment on above: Result Comment: mL/m in/1.73m2 CKD-EPI Creatinine Equation (2020) Performed By: #### L 500.3600 #### [facility] [address] [place], [address] Glucose [Mass/Vol] 141 mg/dL High 70-99 [facility] Comment on above: Performed By: #### L 500.3600 #### [facility] [address] [place], [address] Phosphate [Mass/Vol] 2.9 mg/dL Normal 2.7-4.5 [facility] Comment on above: Performed By: #### L 500.3600 #### [facility] [address] [place], [address] Potassium [Moles/Vol] 4.6 mmol/L Normal 3.3-5.1 [facility] Comment on above: Performed By: #### L 500.3600 #### [facility] [address] [place], [address] Sodium [Moles/Vol] 142 mmol/L Normal 133-145 [facility] Comment on above: Performed By: #### L 500.3600 #### [facility] [address] [place], [address] Urea nitrogen [Mass/Vol] 42 mg/dL High 4-19 [facility] Comment on above: Performed By: #### L 500.3600 #### [facility] [address] [place], [address] CNPTOUTREACHon 12-16-2024 CNPTOUTREACH Normal [facility] CNOVon 12-15-2024 CNOV Normal [facility] BRIEF OP NOTon 12-08-2024 BRIEF OP NOT Normal [facility] HISTORY PHYSICALon HISTORY PHYSICAL Normal [facility] IR EXCHANGE NEPH TUBEon IR EXCHANGE NEPH TUBE Normal [facility] Bas Metab 2000 Pnl SerPlon 1 CO2 [Moles/Vol] 19 mmol/L Low 22-30 [facility] Comment on above: Order Comment: Speci men Type: BLOOD SPECIMENOrdering Facility: [facility] Address: [address] [place] [address] Performed By: #### 2 4362-6, 89076-7 ####[facility]ATORYCLIA [id number] [place] [address] [place] Potassium [Moles/Vol] 4.3 mmol/L Normal 3.7-5.1 [facility] Comment on above: Order Comment: Speci men Type: BLOOD SPECIMENOrdering Facility: [facility] Address: [address] [place] [address] Performed By: #### 2 4362-6, 07832-0 ####[facility]ATORYCLIA [id number] [place] [address] [place] Sodium [Moles/Vol] 141 mmol/L Normal 136-144 [facility] Comment on above: Order Comment: Speci men Type: BLOOD SPECIMENOrdering Facility: [facility] Address: [address] [place] [address] Performed By: #### 2 4362-6, 23633-7 ####[facility] LABORATORYCLIA [id number] [place] [address] [place] Basic metabolic 2000 panelon 12-02-2024 Anion gap [Moles/Vol] 14 mmol/L Normal 8-15 [facility] Comment on above: Order Comment: Speci men Type: BLOOD SPECIMENOrdering Facility: [facility] Address: [address] [place] [address] Performed By: #### 2 4362-6, 26576-2 ####[facility]ATORYCLIA [id number] [place] [address] [place] Calcium [Mass/Vol] 9.2 mg/dL Normal 8.5-10.2 [facility] Comment on above: Order Comment: Speci men Type: BLOOD SPECIMENOrdering Facility: [facility] Address: [address] [place] [address] Performed By: #### 2 4362-6, 45954-7 ####[facility]ORYCLIA [id number] [place] [address] [place] Chloride [Moles/Vol] 108 mmol/L High 98-107 [facility] Comment on above: Order Comment: Speci men Type: BLOOD SPECIMENOrdering Facility: [facility] Address: [address] [place] [address] Performed By: #### 2 4362-6, 70647-5 ####[facility]ORATORYCLIA [id number] [place] [address] [place] Creatinine [Mass/Vol] 2.45 mg/dL High 0.58-0.96 [facility] Comment on above: Order Comment: Speci men Type: BLOOD SPECIMENOrdering Facility: [facility] Address: [address] [place] [address] Performed By: #### 2 4362-6, 01823-9 ####[facility] LABORATORYCLIA [id number] [place] [address] [place] eGFRcr SerPlBld CKD-EPI 2020 21 mL/min/1.73m??? Low >=60 [facility] Comment on above: Order Comment: Speci men Type: BLOOD SPECIMENOrdering Facility: [facility] Address: [address] [place] [address] Result Comment: Capri mated Glomerular Filtration Rate (eGFR) is calculated using the 2020 CKD-EPI creatinine equation. This equation utilizes serum creatinine, sex, and age as parameters. The creatinine assay has traceable calibration to isotope dilution-mass spectrometry. Refer to KDIGO guidelines for clinical interpretation. In patients with unstable renal function, e.g. those with acute kidney injury, the eGFR may not accurately reflect actual GFR. Performed By: #### 2 4362-6, 76874-9 ####[facility] LABORATORYCLIA [id number] [place] [id number] [place] Glucose [Mass/Vol] 151 mg/dL High 74-99 [facility] Comment on above: Order Comment: Speci men Type: BLOOD SPECIMENOrdering Facility: [facility] Address: [address] [place] [address] Result Comment: The [place] [employer] (ADA) provides guidance for cutoff values for fasting glucose and random glucose. The ADA defines fasting as no caloric intake for at least 8 hours. Fasting plasma glucose results between 100 to 125 mg/dL indicate increased risk for diabetes (prediabetes).Fasting plasma glucose results greater than or equal to 126 mg/dL meet the criteria for diagnosis of diabetes. In the absence of unequivocal hyperglycemia, results should be confirmed by repeat testing. In a patient with classic symptoms of hyperglycemia or hyperglycemic crisis, random plasma glucose results greater than or equal to 200 mg/dL meet the criteria for diagnosis of diabetes.Reference: Standards of Medical Care in Diabetes 2016, [place] [employer]. Diabetes Care. 2016.39(Suppl 1). Performed By: #### 2 4362-6, 28309-0 ####[facility] LABORATORYCLIA [id number] [address] [place] Urea nitrogen [Mass/Vol] 57 mg/dL High 7-21 [facility] Comment on above: Order Comment: Speci men Type: BLOOD SPECIMENOrdering Facility: [facility] Address: [address] [place] [address] Performed By: #### 2 4362-6, 40675-1 ####[facility] LABORATORYCLIA [id number] [address] [place] CASE MANAGEMon 12-02-2024 CASE MANAGEM Normal [facility] CNDSon 12-02-2024 CNDS Normal [facility] CONSULT PROGon 12-02-2024 CONSULT PROG Normal [facility] Renal function 2000 panelon 12-02-2024 Albumin [Mass/Vol] 3.8 g/dL Low 3.9-4.9 [facility] Comment on above: Order Comment: Marinoi soraya Type: BLOOD SPECIMENOrdering Facility: [facility] Address: [address] [place] [address] Performed By: #### 2 4362-6, 61762-1 ####[facility] LABORATORYCLIA [id number] [address] [place] Anion gap [Moles/Vol] 15 mmol/L Normal 8-15 [facility] Comment on above: Order Comment: Mavis lira Type: BLOOD SPECIMENOrdering Facility: [facility] Address: [address] [place] [address] Performed By: #### 2 4362-6, 71168-5 ####[facility] LABORATORYCLIA [id number] [address] OF [facility] Calcium [Mass/Vol] 9.4 mg/dL Normal 8.5-10.2 [facility] Comment on above: Order Comment: Mavis men Type: BLOOD SPECIMENOrdering Facility: [facility] Address: [address] [place] [address] Performed By: #### 2 4362-6, 41405-5 ####[facility] LABORATORYCLIA [id number] [address] [place] Chloride [Moles/Vol] 107 mmol/L Normal 98-107 [facility] Comment on above: Order Comment: Speci men Type: BLOOD SPECIMENOrdering Facility: [facility] Address: [address] [place] [address] Performed By: #### 2 4362-6, 56316-0 ####[facility] LABORATORYCLIA [id number] [address] STATES OF [facility] Creatinine [Mass/Vol] 2.70 mg/dL High 0.58-0.96 [facility] Comment on above: Order Comment: Speci men Type: BLOOD SPECIMENOrdering Facility: [facility] Address: [address] [place] [address] Performed By: #### 2 4362-6, 91101-6 ####[facility] LABORATORYCLIA [id number] [address] [place] eGFRcr SerPlBld CKD-EPI 2020 19 mL/min/1.73m??? Low >=60 [facility] Comment on above: Order Comment: Speci men Type: BLOOD SPECIMENOrdering Facility: [facility] Address: [address] [place] [address] Result Comment: Capri mated Glomerular Filtration Rate (eGFR) is calculated using the 2020 CKD-EPI creatinine equation. This equation utilizes serum creatinine, sex, and age as parameters. The creatinine assay has traceable calibration to isotope dilution-mass spectrometry. Refer to KDIGO guidelines for clinical interpretation. In patients with unstable renal function, e.g. those with acute kidney injury, the eGFR may not accurately reflect actual GFR. Performed By: #### 2 4362-6, 50711-9 ####[facility] LABORATORYCLIA [id number] [place] [address] [place] Glucose [Mass/Vol] 155 mg/dL High 74-99 [facility] Comment on above: Order Comment: Speci men Type: BLOOD SPECIMENOrdering Facility: [facility] Address: [address] [place] [address] Result Comment: The [place] [employer] (ADA) provides guidance for cutoff values for fasting glucose and random glucose. The ADA defines fasting as no caloric intake for at least 8 hours. Fasting plasma glucose results between 100 to 125 mg/dL indicate increased risk for diabetes (prediabetes).Fasting plasma glucose results greater than or equal to 126 mg/dL meet the criteria for diagnosis of diabetes. In the absence of unequivocal hyperglycemia, results should be confirmed by repeat testing. In a patient with classic symptoms of hyperglycemia or hyperglycemic crisis, random plasma glucose results greater than or equal to 200 mg/dL meet the criteria for diagnosis of diabetes.Reference: Standards of Medical Care in Diabetes 2016, [place] [employer]. Diabetes Care. 2016.39(Suppl 1). Performed By: #### 2 4362-6, 89670-1 ####[facility] LABORATORYCLIA [id number] [place] [address] [place] Phosphate [Mass/Vol] 2.9 mg/dL Normal 2.7-4.8 [facility] Comment on above: Order Comment: Mavis men Type: BLOOD SPECIMENOrdering Facility: [facility] Address: [address] [place] [address] Performed By: #### 2 4362-6, 98867-5 ####[facility] LABORATORYCLIA [id number] [place] [id number] [place] Urea nitrogen [Mass/Vol] 56 mg/dL High 7-21 [facility] Comment on above: Order Comment: Marinoi men Type: BLOOD SPECIMENOrdering Facility: [facility] Address: [address] [place] [address] Performed By: #### 2 4362-6, 30881-9 ####[facility] LABORATORYCLIA [id number] [address] OF [place] Basic metabolic 2000 panelon 12-01-2024 Anion gap [Moles/Vol] 12 mmol/L Normal 8-15 [facility] Comment on above: Order Comment: Speci men Type: BLOOD SPECIMENOrdering Facility: [facility] Address: [address] [place] [address] Performed By: #### 2 4321-2 ####[facility] LABORATORYCLIA [id number] [place] [address] [place] Calcium [Mass/Vol] 8.6 mg/dL Normal 8.5-10.2 [facility] Comment on above: Order Comment: Speci men Type: BLOOD SPECIMENOrdering Facility: [facility] Address: [address] [place] [address] Performed By: #### 2 4321-2 ####[facility] LABORATORYCLIA [id number] [place] [address] [place] Chloride [Moles/Vol] 114 mmol/L High 98-107 [facility] Comment on above: Order Comment: Speci men Type: BLOOD SPECIMENOrdering Facility: [facility] Address: [address] [place] [address] Performed By: #### 2 4321-2 ####[facility] LABORATORYCLIA [id number] [place] [address] [place] CO2 [Moles/Vol] 17 mmol/L Low 22-30 [facility] Comment on above: Order Comment: Speci men Type: BLOOD SPECIMENOrdering Facility: [facility] Address: [address] [place] [address] Performed By: #### 2 4321-2 ####[facility] LABORATORYCLIA [id number] [place] [address] [place] Creatinine [Mass/Vol] 2.69 mg/dL High 0.58-0.96 [facility] Comment on above: Order Comment: Speci men Type: BLOOD SPECIMENOrdering Facility: [facility] Address: [address] [place] [address] Performed By: #### 2 4321-2 ####[facility] LABORATORYCLIA [id number] [place] [address] [place] eGFRcr SerPlBld CKD-EPI 2020 19 mL/min/1.73m??? Low >=60 [facility] Comment on above: Order Comment: Mavis lira Type: BLOOD SPECIMENOrdering Facility: [facility] Address: [address] [place] [address] Result Comment: Capri mated Glomerular Filtration Rate (eGFR) is calculated using the 2020 CKD-EPI creatinine equation. This equation utilizes serum creatinine, sex, and age as parameters. The creatinine assay has traceable calibration to isotope dilution-mass spectrometry. Refer to KDIGO guidelines for clinical interpretation. In patients with unstable renal function, e.g. those with acute kidney injury, the eGFR may not accurately reflect actual GFR. Performed By: #### 2 4321-2 ####[facility] LABORATORYCLIA [id number] [place] [address] [place] Glucose [Mass/Vol] 110 mg/dL High 74-99 [facility] Comment on above: Order Comment: Mavis lira Type: BLOOD SPECIMENOrdering Facility: [facility] Address: [address] [place] [address] Result Comment: The [place] Diabetes Association (ADA) provides guidance for cutoff values for fasting glucose and random glucose. The ADA defines fasting as no caloric intake for at least 8 hours. Fasting plasma glucose results between 100 to 125 mg/dL indicate increased risk for diabetes (prediabetes).Fasting plasma glucose results greater than or equal to 126 mg/dL meet the criteria for diagnosis of diabetes. In the absence of unequivocal hyperglycemia, results should be confirmed by repeat testing. In a patient with classic symptoms of hyperglycemia or hyperglycemic crisis, random plasma glucose results greater than or equal to 200 mg/dL meet the criteria for diagnosis of diabetes.Reference: Standards of Medical Care in Diabetes 2016, [place] [employer]. Diabetes Care. 2016.39(Suppl 1). Performed By: #### 2 4321-2 ####[facility] LABORATORYCLIA [id number] [place] [id number] [place] Potassium [Moles/Vol] 4.6 mmol/L Normal 3.7-5.1 [facility] Comment on above: Order Comment: Speci men Type: BLOOD SPECIMENOrdering Facility: [facility] Address: [address] [place] [address] Performed By: #### 2 4321-2 ####[facility] LABORATORYCLIA [id number] [address] STATES OF [facility] Sodium [Moles/Vol] 143 mmol/L Normal 136-144 [facility] Comment on above: Order Comment: Speci men Type: BLOOD SPECIMENOrdering Facility: [facility] Address: [address] [place] [address] Performed By: #### 2 4321-2 ####[facility] LABORATORYCLIA [id number] [address] [place] Urea nitrogen [Mass/Vol] 48 mg/dL High 7-21 [facility] Comment on above: Order Comment: Speci men Type: BLOOD SPECIMENOrdering Facility: [facility] Address: [address] [place] [address] Performed By: #### 2 4321-2 ####[facility] LABORATORYCLIA [id number] [address] STATES OF [facility] CBC panel Auto (Bld)on 12-01 Erythrocyte distribution width (RBC) [Ratio] 14.5 % Normal 11.5-15.0 [facility] Comment on above: Order Comment: Speci men Type: BLOOD SPECIMENOrdering Facility: [facility] Address: [address] [place] [address] Performed By: #### 5 8410-2 ####[facility] LABORATORYCLIA [id number] [address] Hematocrit (Bld) [Volume fraction] 32.7 % Low 36.0-46.0 [facility] Comment on above: Order Comment: Speci men Type: BLOOD SPECIMENOrdering Facility: [facility] Address: [address] [place] [address] Performed By: #### 5 8410-2 ####[facility] LABORATORYCLIA [id number] [address] Hemoglobin (Bld) [Mass/Vol] 10.2 g/dL Low 11.5-15.5 [facility] Comment on above: Order Comment: Speci men Type: BLOOD SPECIMENOrdering Facility: [facility] Address: [address] [place] [address] Performed By: #### 5 8410-2 ####[facility] LABORATORYCLIA [id number] [address] STATES [facility] MCH (RBC) [Entitic mass] 29.9 pg Normal 26.0-34.0 [facility] Comment on above: Order Comment: Speci men Type: BLOOD SPECIMENOrdering Facility: [facility] Address: [address] [place] [address] Performed By: #### 5 8410-2 ####[facility] LABORATORYCLIA [id number] [address] MCHC (RBC) [Mass/Vol] 31.2 g/dL Normal 30.5-36.0 [facility] Comment on above: Order Comment: Speci men Type: BLOOD SPECIMENOrdering Facility: [facility] Address: [address] [place] [address] Performed By: #### 5 8410-2 ####[facility] LABORATORYCLIA [id number] [address] OF [facility] MCV (RBC) [Entitic vol] 95.9 fL Normal 80.0-100.0 [facility] Comment on above: Order Comment: Speci men Type: BLOOD SPECIMENOrdering Facility: [facility] Address: [address] [place] [address] Performed By: #### 5 8410-2 ####[facility] LABORATORYCLIA [id number] [address] Nucleated RBC (Bld) [#/Vol] 10*3/uL Normal <0.01 [facility] Comment on above: Order Comment: Speci men Type: BLOOD SPECIMENOrdering Facility: [facility] Address: [address] [place] [address] Performed By: #### 5 8410-2 ####[facility] LABORATORYCLIA [id number] [address] [place] Platelet mean volume (Bld) [Entitic vol] 8.7 fL Low 9.0-12.7 [facility] Comment on above: Order Comment: Speci men Type: BLOOD SPECIMENOrdering Facility: [facility] Address: [address] [place] [address] Performed By: #### 5 8410-2 ####[facility] LABORATORYCLIA [id number] [address] [place] Platelets (Bld) [#/Vol] 360 10*3/uL Normal 150-400 [facility] Comment on above: Order Comment: Speci men Type: BLOOD SPECIMENOrdering Facility: [facility] Address: [address] [place] [address] Performed By: #### 5 8410-2 ####[facility] LABORATORYCLIA [id number] [place] [address] [place] RBC (Bld) [#/Vol] 3.41 10*6/uL Low 3.90-5.20 [facility] Comment on above: Order Comment: Speci men Type: BLOOD SPECIMENOrdering Facility: [facility] Address: [address] [place] [address] Performed By: #### 5 8410-2 ####[facility] LABORATORYCLIA [id number] [place] [address] [place] WBC (Bld) [#/Vol] 10.36 10*3/uL Normal 3.70-11.00 [facility] Comment on above: Order Comment: Speci men Type: BLOOD SPECIMENOrdering Facility: [facility] Address: [address] [place] [address] Performed By: #### 5 8410-2 ####[facility] LABORATORYCLIA [id number] [address] [place] CONSULTon 12-01-2024 CONSULT Normal [facility] Basic metabolic 2000 panelon 11-30-2024 Anion gap [Moles/Vol] 16 mmol/L High 8-15 [facility] Comment on above: Order Comment: Speci men Type: BLOOD SPECIMENOrdering Facility: [facility] Address: [address] [place] [address] Performed By: #### 2 4321-2, , 2776-03 ####[facility] LABORATORYCLIA [id number] [place] [id number] [place] Calcium [Mass/Vol] 8.8 mg/dL Normal 8.5-10.2 [facility] Comment on above: Order Comment: Speci men Type: BLOOD SPECIMENOrdering Facility: [facility] Address: [address] [place] [address] Performed By: #### 2 4321-2, , 2776-03 ####[facility] LABORATORYCLIA [id number] [place] [address] [place] Chloride [Moles/Vol] 108 mmol/L High 98-107 [facility] Comment on above: Order Comment: Speci men Type: BLOOD SPECIMENOrdering Facility: [facility] Address: [address] [place] [address] Performed By: #### 2 4321-2, , 2776-03 ####[facility] LABORATORYCLIA [id number] [place] [id number] [place] CO2 [Moles/Vol] 17 mmol/L Low 22-30 [facility] Comment on above: Order Comment: Speci men Type: BLOOD SPECIMENOrdering Facility: [facility] Address: [address] [place] [address] Performed By: #### 2 4321-2, , 2776-03 ####[facility] LABORATORYCLIA [id number] [place] [address] [place] Creatinine [Mass/Vol] 2.61 mg/dL High 0.58-0.96 [facility] Comment on above: Order Comment: Speci men Type: BLOOD SPECIMENOrdering Facility: [facility] Address: [address] [place] [address] Performed By: #### 2 4321-2, 72796-4, 2776-1 ####[facility]PITALIA [id number] [place] [id number] [place] eGFRcr SerPlBld CKD-EPI 2020 19 mL/min/1.73m??? Low >=60 [facility] Comment on above: Order Comment: Mavis lira Type: BLOOD SPECIMENOrdering Facility: [facility] Address: [address] [place] [address] Result Comment: Capri mated Glomerular Filtration Rate (eGFR) is calculated using the 2020 CKD-EPI creatinine equation. This equation utilizes serum creatinine, sex, and age as parameters. The creatinine assay has traceable calibration to isotope dilution-mass spectrometry. Refer to KDIGO guidelines for clinical interpretation. In patients with unstable renal function, e.g. those with acute kidney injury, the eGFR may not accurately reflect actual GFR. Performed By: #### 2 4321-2, 74559-7, 2771 ####[facility]PITALIA [id number] [place] [id number] [place] Glucose [Mass/Vol] 89 mg/dL Normal 74-99 [facility] Comment on above: Order Comment: Mavis lira Type: BLOOD SPECIMENOrdering Facility: [facility] Address: [address] [place] [address] Result Comment: The [place] Diabetes [employer] (ADA) provides guidance for cutoff values for fasting glucose and random glucose. The ADA defines fasting as no caloric intake for at least 8 hours. Fasting plasma glucose results between 100 to 125 mg/dL indicate increased risk for diabetes (prediabetes).Fasting plasma glucose results greater than or equal to 126 mg/dL meet the criteria for diagnosis of diabetes. In the absence of unequivocal hyperglycemia, results should be confirmed by repeat testing. In a patient with classic symptoms of hyperglycemia or hyperglycemic crisis, random plasma glucose results greater than or equal to 200 mg/dL meet the criteria for diagnosis of diabetes.Reference: Standards of Medical Care in Diabetes 2016, [place] [employer]. Diabetes Care. 2016.39(Suppl 1). Performed By: #### 2 4321-2, , 2776-03 ####[facility] LABORATORYCLIA [id number] [place] [address] [place] Potassium [Moles/Vol] 4.4 mmol/L Normal 3.7-5.1 [facility] Comment on above: Order Comment: Speci men Type: BLOOD SPECIMENOrdering Facility: [facility] Address: [address] [place] [address] Performed By: #### 2 4321-2, , 2776-03 ####[facility] LABORATORYCLIA [id number] [place] [id number] [place] Sodium [Moles/Vol] 141 mmol/L Normal 136-144 [facility] Comment on above: Order Comment: Speci men Type: BLOOD SPECIMENOrdering Facility: [facility] Address: [address] [place] [address] Performed By: #### 2 4321-2, , 2776-03 ####[facility] LABORATORYCLIA [id number] [place] [address] [place] Urea nitrogen [Mass/Vol] 55 mg/dL High 7-21 [facility] Comment on above: Order Comment: Speci men Type: BLOOD SPECIMENOrdering Facility: [facility] Address: [address] [place] [address] Performed By: #### 2 4321-2, , 2776-03 ####[facility] LABORATORYCLIA [id number] [place] [address] [place] CASE MGT INIT ASSESon 2024 CASE MGT INIT ASSES Normal [facility] CBC panel Auto (Bld)on 11-30 Erythrocyte distribution width (RBC) [Ratio] 14.5 % Normal 11.5-15.0 [facility] Comment on above: Order Comment: Speci men Type: BLOOD SPECIMENOrdering Facility: [facility] Address: [address] [place] [address] Performed By: #### 5 8410-2 ####[facility] LABORATORYCLIA [id number] [address] Hematocrit (Bld) [Volume fraction] 33.3 % Low 36.0-46.0 [facility] Comment on above: Order Comment: Speci men Type: BLOOD SPECIMENOrdering Facility: [facility] Address: [address] [place] [address] Performed By: #### 5 8410-2 ####[facility] LABORATORYCLIA [id number] [address] Hemoglobin (Bld) [Mass/Vol] 10.5 g/dL Low 11.5-15.5 [facility] Comment on above: Order Comment: Speci men Type: BLOOD SPECIMENOrdering Facility: [facility] Address: [address] [place] [address] Performed By: #### 5 8410-2 ####[facility] LABORATORYCLIA [id number] [address] STATES [facility] MCH (RBC) [Entitic mass] 30.0 pg Normal 26.0-34.0 [facility] Comment on above: Order Comment: Speci men Type: BLOOD SPECIMENOrdering Facility: [facility] Address: [address] [place] [address] Performed By: #### 5 8410-2 ####[facility] LABORATORYCLIA [id number] [address] [place] MCHC (RBC) [Mass/Vol] 31.5 g/dL Normal 30.5-36.0 [facility] Comment on above: Order Comment: Speci men Type: BLOOD SPECIMENOrdering Facility: [facility] Address: [address] [place] [address] Performed By: #### 5 8410-2 ####[facility] LABORATORYCLIA [id number] [address] MCV (RBC) [Entitic vol] 95.1 fL Normal 80.0-100.0 [facility] Comment on above: Order Comment: Speci men Type: BLOOD SPECIMENOrdering Facility: [facility] Address: [address] [place] [address] Performed By: #### 5 8410-2 ####[facility] LABORATORYCLIA [id number] [address] [place] Nucleated RBC (Bld) [#/Vol] 10*3/uL Normal <0.01 [facility] Comment on above: Order Comment: Speci men Type: BLOOD SPECIMENOrdering Facility: [facility] Address: [address] [place] [address] Performed By: #### 5 8410-2 ####[facility] LABORATORYCLIA [id number] [address] [place] Platelet mean volume (Bld) [Entitic vol] 8.8 fL Low 9.0-12.7 [facility] Comment on above: Order Comment: Speci men Type: BLOOD SPECIMENOrdering Facility: [facility] Address: [address] [place] [address] Performed By: #### 5 8410-2 ####[facility] LABORATORYCLIA [id number] [address] [place] Platelets (Bld) [#/Vol] 367 10*3/uL Normal 150-400 [facility] Comment on above: Order Comment: Speci men Type: BLOOD SPECIMENOrdering Facility: [facility] Address: [address] [place] [address] Performed By: #### 5 8410-2 ####[facility] LABORATORYCLIA [id number] [address] [place] RBC (Bld) [#/Vol] 3.50 10*6/uL Low 3.90-5.20 [facility] Comment on above: Order Comment: Speci men Type: BLOOD SPECIMENOrdering Facility: [facility] Address: [address] [place] [address] Performed By: #### 5 8410-2 ####[facility] LABORATORYCLIA [id number] [address] [place] WBC (Bld) [#/Vol] 11.15 10*3/uL High 3.70-11.00 [facility] Comment on above: Order Comment: Mavis lira Type: BLOOD SPECIMENOrdering Facility: [facility] Address: [address] [place] [address] Performed By: #### 5 8410-2 ####[facility] LABORATORYCLIA [id number] [place] [id number] [place] CONSULTon 11-30-2024 CONSULT Normal [facility] CONSULT PROGon 11-30-2024 CONSULT PROG Normal [facility] Magnesium SerPl-mCncon 11-30 Magnesium [Mass/Vol] 1.9 mg/dL Normal 1.7-2.3 [facility] Comment on above: Order Comment: Mavis lira Type: BLOOD SPECIMENOrdering Facility: [facility] Address: [address] [place] [address] Performed By: #### 2 4321-2, 52969-1, 2777-1 ####[facility] LABORATORYCLIA [id number] [address] [place] PT panel Coag (PPP)on 2024 INR Coag (PPP) [Relative time] 1.0 {INR} Normal 0.9-1.3 [facility] Comment on above: Order Comment: Mavis lira Type: BLOOD SPECIMENOrdering Facility: [facility] Address: [address] [place] [address] Result Comment: Helen min K Antagonist (VKA) Therapeutic Range: INR 2 to 3 (Target INR of 2.5)Note: For patients treated with VKA drugs, such as warfarin, the [place] [employer] 2012 Guideline recommends a therapeutic INR range of 2 to 3 (target INR of 2.5). This recommendation includes high-risk patients with antiphospholipid syndrome with previous arterial or venous thromboembolism, current-generation mechanical or bioprosthetic aortic heart valve replacement.Note: Patients with mechanical aortic valve replacement and additional risk factors for thromboembolic events (atrial fibrillation, previous thromboembolism, LV dysfunction, hypercoagulable conditions) or an older generation mechanical AVR (i.e., ball in-Cage) or any mechanical MVR should have a INR therapeutic range of 2.5 to 3.5 (target INR of 3).Leyda GH, et al. Chest 2012, 141:7S-47SNishimura RA, et al. [facility] 2017, 70: 252-289 Performed By: #### 1 4979-9, 74144-8 ####[facility] LABORATORYCLIA [id number] [place] [address] [place] PT Coag (PPP) [Time] 10.8 s Normal 9.7-13.0 [facility] Comment on above: Order Comment: Speci men Type: BLOOD SPECIMENOrdering Facility: [facility] Address: [address] [place] [address] Performed By: #### 1 4979-9, 47079-0 ####[facility] LABORATORYCLIA [id number] [place] [id number] [place] Phosphate SerPl-mCncon 11-30 Phosphate [Mass/Vol] 3.8 mg/dL Normal 2.7-4.8 [facility] Comment on above: Order Comment: Speci men Type: BLOOD SPECIMENOrdering Facility: [facility] Address: [address] [place] [address] Performed By: #### 2 4321-2, 15288-2, 2777-1 ####[facility]ORATORYCLIA [id number] [place] [address] [place] aPTT PPPon 11-30-2024 aPTT Coag (PPP) [Time] 25.8 s Normal 23.0-32.4 [facility] Comment on above: Order Comment: Speci men Type: BLOOD SPECIMENOrdering Facility: [facility] Address: [address] [place] [address] Performed By: #### 1 4979-9, 15838-6 ####[facility] LABORATORYCLIA [id number] [place] [id number] [place] Bacteria Ur Culton Bacteria identified Cx Nom (U) Normal [facility] Comment on above: Performed By: #### 2 4356-8, 630-4 ####[facility]ATORYCLIA [id number] [place] [address] [place] Basic metabolic 2000 panelon 11-29-2024 Anion gap [Moles/Vol] 11 mmol/L Normal 8-15 [facility] Comment on above: Order Comment: Speci men Type: BLOOD SPECIMENOrdering Facility: [facility] Address: [address] [place] [address] Performed By: #### 2 4321-2 ####[facility]ATORYCLIA [id number] [place] [address] [place] Calcium [Mass/Vol] 9.3 mg/dL Normal 8.5-10.2 [facility] Comment on above: Order Comment: Speci men Type: BLOOD SPECIMENOrdering Facility: [facility] Address: [address] [place] [address] Performed By: #### 2 4321-2 ####[facility]ATORYCLIA [id number] [address] [place] Chloride [Moles/Vol] 108 mmol/L High 98-107 [facility] Comment on above: Order Comment: Speci men Type: BLOOD SPECIMENOrdering Facility: [facility] Address: [address] [place] [address] Performed By: #### 2 4321-2 ####[facility]ATORYCLIA [id number] [place] [address] [place] CO2 [Moles/Vol] 19 mmol/L Low 22-30 [facility] Comment on above: Order Comment: Speci men Type: BLOOD SPECIMENOrdering Facility: [facility] Address: [address] [place] [address] Performed By: #### 2 4321-2 ####[facility]ATORYCLIA [id number] [address] [place] Creatinine [Mass/Vol] 2.80 mg/dL High 0.58-0.96 [facility] Comment on above: Order Comment: Speci men Type: BLOOD SPECIMENOrdering Facility: [facility] Address: [address] [place] [address] Performed By: #### 2 4321-2 ####[facility]ITALIA [id number] [place] [id number] [facility] [place] eGFRcr SerPlBld CKD-EPI 2020 18 mL/min/1.73m??? Low >=60 [facility] Comment on above: Order Comment: Mavis lira Type: BLOOD SPECIMENOrdering Facility: [facility] Address: [address] [place] [address] Result Comment: Capri mated Glomerular Filtration Rate (eGFR) is calculated using the 2020 CKD-EPI creatinine equation. This equation utilizes serum creatinine, sex, and age as parameters. The creatinine assay has traceable calibration to isotope dilution-mass spectrometry. Refer to KDIGO guidelines for clinical interpretation. In patients with unstable renal function, e.g. those with acute kidney injury, the eGFR may not accurately reflect actual GFR. Performed By: #### 2 4321-2 ####[facility]ITALIA [id number] [address] [place] Glucose [Mass/Vol] 167 mg/dL High 74-99 [facility] Comment on above: Order Comment: Mavis lira Type: BLOOD SPECIMENOrdering Facility: [facility] Address: [address] [place] [address] Result Comment: The [place] Diabetes [employer] (ADA) provides guidance for cutoff values for fasting glucose and random glucose. The ADA defines fasting as no caloric intake for at least 8 hours. Fasting plasma glucose results between 100 to 125 mg/dL indicate increased risk for diabetes (prediabetes).Fasting plasma glucose results greater than or equal to 126 mg/dL meet the criteria for diagnosis of diabetes. In the absence of unequivocal hyperglycemia, results should be confirmed by repeat testing. In a patient with classic symptoms of hyperglycemia or hyperglycemic crisis, random plasma glucose results greater than or equal to 200 mg/dL meet the criteria for diagnosis of diabetes.Reference: Standards of Medical Care in Diabetes 2016, [place] [employer]. Diabetes Care. 2016.39(Suppl 1). Performed By: #### 2 4321-2 ####[facility]ITALIA [id number] [address] [place] Potassium [Moles/Vol] 5.5 mmol/L High 3.7-5.1 [facility] Comment on above: Order Comment: Speci men Type: BLOOD SPECIMENOrdering Facility: [facility] Address: [address] [place] [address] Performed By: #### 2 4321-2 ####[facility]ORATORYCLIA [id number] [address] [place] Sodium [Moles/Vol] 138 mmol/L Normal 136-144 [facility] Comment on above: Order Comment: Speci men Type: BLOOD SPECIMENOrdering Facility: [facility] Address: [address] [place] [address] Performed By: #### 2 4321-2 ####[facility]ORATORYCLIA [id number] [address] [place] Urea nitrogen [Mass/Vol] 56 mg/dL High 7-21 [facility] Comment on above: Order Comment: Speci men Type: BLOOD SPECIMENOrdering Facility: [facility] Address: [address] [place] [address] Performed By: #### 2 4321-2 ####[facility]ORATORYCLIA [id number] [address] [place] CBC W Auto Differential pane l (Bld)on 11-29-2024 Basophils (Bld) [#/Vol] 0.03 10*3/uL Normal <0.11 [facility] Comment on above: Order Comment: Speci men Type: BLOOD SPECIMENOrdering Facility: [facility] Address: [address] [place] [address] Performed By: #### 5 7021-8 ####[facility]ORATORYCLIA [id number] [address] [place] Basophils/100 WBC (Bld) 0.2 % Normal [facility] Comment on above: Order Comment: Speci men Type: BLOOD SPECIMENOrdering Facility: [facility] Address: [address] [place] [address] Performed By: #### 5 7021-8 ####[facility]ATORYCLIA [id number] [address] Differential cell count method Nom (Bld) Auto Normal [facility] Comment on above: Order Comment: Speci men Type: BLOOD SPECIMENOrdering Facility: [facility] Address: [address] [place] [address] Performed By: #### 5 7021-8 ####[facility]ORATORYCLIA [id number] [address] [place] Eosinophils (Bld) [#/Vol] 10*3/uL Normal <0.46 [facility] Comment on above: Order Comment: Speci men Type: BLOOD SPECIMENOrdering Facility: [facility] Address: [address] [place] [address] Performed By: #### 5 7021-8 ####[facility]ORATORYCLIA [id number] [address] Eosinophils/100 WBC (Bld) 0.1 % Normal [facility] Comment on above: Order Comment: Speci men Type: BLOOD SPECIMENOrdering Facility: [facility] Address: [address] [place] [address] Performed By: #### 5 7021-8 ####[facility]ORATORYCLIA [id number] [address] Erythrocyte distribution width (RBC) [Ratio] 14.3 % Normal 11.5-15.0 [facility] Comment on above: Order Comment: Speci men Type: BLOOD SPECIMENOrdering Facility: [facility] Address: [address] [place] [address] Performed By: #### 5 7021-8 ####[facility]ORATORYCLIA [id number] [address] Hematocrit (Bld) [Volume fraction] 34.1 % Low 36.0-46.0 [facility] Comment on above: Order Comment: Speci men Type: BLOOD SPECIMENOrdering Facility: [facility] Address: [address] [place] [address] Performed By: #### 5 7021-8 ####[facility]ATORYCLIA [id number] [place] [address] [place] Hemoglobin (Bld) [Mass/Vol] 10.8 g/dL Low 11.5-15.5 [facility] Comment on above: Order Comment: Speci men Type: BLOOD SPECIMENOrdering Facility: [facility] Address: [facility] [place] [address] Performed By: #### 5 7021-8 ####[facility]ORYCLIA [id number] [place] [address] [place] Immature granulocytes (Bld) [#/Vol] 0.13 10*3/uL High <0.10 [facility] Comment on above: Order Comment: Speci men Type: BLOOD SPECIMENOrdering Facility: [facility] Address: [address] [place] [address] Performed By: #### 5 7021-8 ####[facility]ORATORYCLIA [id number] [place] [address] [place] Immature granulocytes/100 WBC (Bld) 1.0 % Normal [facility] Comment on above: Order Comment: Speci men Type: BLOOD SPECIMENOrdering Facility: [facility] Address: [address] [place] [address] Performed By: #### 5 7021-8 ####[facility]ORATORYCLIA [id number] [place] [address] [place] Lymphocytes (Bld) [#/Vol] 0.71 10*3/uL Low 1.00-4.00 [facility] Comment on above: Order Comment: Speci men Type: BLOOD SPECIMENOrdering Facility: [facility] Address: [facility] [place] [address] Performed By: #### 5 7021-8 ####[facility]ORYCLIA [id number] [place] [address] [place] Lymphocytes/100 WBC (Bld) 5.6 % Normal [facility] Comment on above: Order Comment: Speci men Type: BLOOD SPECIMENOrdering Facility: [facility] Address: [address] [place] [address] Performed By: #### 5 7021-8 ####[facility]ORATORYCLIA [id number] [address] MCH (RBC) [Entitic mass] 29.8 pg Normal 26.0-34.0 [facility] Comment on above: Order Comment: Speci men Type: BLOOD SPECIMENOrdering Facility: [facility] Address: [address] [place] [address] Performed By: #### 5 7021-8 ####[facility]ORATORYCLIA [id number] [address] MCHC (RBC) [Mass/Vol] 31.7 g/dL Normal 30.5-36.0 [facility] Comment on above: Order Comment: Speci men Type: BLOOD SPECIMENOrdering Facility: [facility] Address: [address] [place] [address] Performed By: #### 5 7021-8 ####[facility]ORATORYCLIA [id number] [address] MCV (RBC) [Entitic vol] 93.9 fL Normal 80.0-100.0 [facility] Comment on above: Order Comment: Speci men Type: BLOOD SPECIMENOrdering Facility: [facility] Address: [address] [place] [address] Performed By: #### 5 7021-8 ####[facility]ORATORYCLIA [id number] [address] Monocytes (Bld) [#/Vol] 0.23 10*3/uL Normal <0.87 [facility] Comment on above: Order Comment: Speci men Type: BLOOD SPECIMENOrdering Facility: [facility] Address: [address] [place] [address] Performed By: #### 5 7021-8 ####[facility]ORATORYCLIA [id number] [address] Monocytes/100 WBC (Bld) 1.8 % Normal [facility] Comment on above: Order Comment: Speci men Type: BLOOD SPECIMENOrdering Facility: [facility] Address: [address] [place] [address] Performed By: #### 5 7021-8 ####[facility]ATORYCLIA [id number] [place] [address] [place] Neutrophils (Bld) [#/Vol] 11.62 10*3/uL High 1.45-7.50 [facility] Comment on above: Order Comment: Speci men Type: BLOOD SPECIMENOrdering Facility: [facility] Address: [address] [place] [address] Performed By: #### 5 7021-8 ####[facility]ORATORYCLIA [id number] [address] [place] Neutrophils/100 WBC (Bld) 91.3 % Normal [facility] Comment on above: Order Comment: Speci men Type: BLOOD SPECIMENOrdering Facility: [facility] Address: [address] [place] [address] Performed By: #### 5 7021-8 ####[facility]ORYCLIA [id number] [place] [address] [place] Nucleated RBC (Bld) [#/Vol] 10*3/uL Normal <0.01 [facility] Comment on above: Order Comment: Speci men Type: BLOOD SPECIMENOrdering Facility: [facility] Address: [address] [place] [address] Performed By: #### 5 7021-8 ####[facility]ORYCLIA [id number] [address] [place] Nucleated RBC/100 WBC (Bld) [Ratio] 0.0 /100 WBC Normal [facility] Comment on above: Order Comment: Speci men Type: BLOOD SPECIMENOrdering Facility: [facility] Address: [address] [place] [address] Performed By: #### 5 7021-8 ####[facility]ORATORYCLIA [id number] [place] [address] [place] Platelet mean volume (Bld) [Entitic vol] 8.9 fL Low 9.0-12.7 [facility] Comment on above: Order Comment: Speci men Type: BLOOD SPECIMENOrdering Facility: [facility] Address: [address] [place] [address] Performed By: #### 5 7021-8 ####[facility]ORATORYCLIA [id number] [place] [address] [place] Platelets (Bld) [#/Vol] 380 10*3/uL Normal 150-400 [facility] Comment on above: Order Comment: Speci men Type: BLOOD SPECIMENOrdering Facility: [facility] Address: [address] [place] [address] Performed By: #### 5 7021-8 ####[facility]ORATORYCLIA [id number] [place] [address] [place] RBC (Bld) [#/Vol] 3.63 10*6/uL Low 3.90-5.20 [facility] Comment on above: Order Comment: Speci men Type: BLOOD SPECIMENOrdering Facility: [facility] Address: [address] [place] [address] Performed By: #### 5 7021-8 ####[facility]ORATORYCLIA [id number] [place] [address] [place] WBC (Bld) [#/Vol] 12.73 10*3/uL High 3.70-11.00 [facility] Comment on above: Order Comment: Speci men Type: BLOOD SPECIMENOrdering Facility: [facility] Address: [address] [place] [address] Performed By: #### 5 7021-8 ####[facility]ORATORYCLIA [id number] [address] [place] CT ABD/PEL WO IVCONon 2024 CT ABD/PEL WO IVCON Normal [facility] Comprehensive metabolic 2000 panelon 09-28-2025 Albumin [Mass/Vol] 4.0 g/dL Normal 3.9-4.9 [facility] Comment on above: Order Comment: Speci men Type: BLOOD SPECIMENOrdering Facility: [facility] Address: [address] [place] [address] Performed By: #### 2 4323-8 ####[facility]ORATORYCLIA [id number] [place] [address] [place] ALP [Catalytic activity/Vol] 137 U/L High 34-123 [facility] Comment on above: Order Comment: Speci men Type: BLOOD SPECIMENOrdering Facility: [facility] Address: [address] [place] [address] Performed By: #### 2 4323-8 ####[facility]ORATORYCLIA [id number] [address] [place] ALT With P-5'-P [Catalytic activity/Vol] 18 U/L Normal 7-38 [facility] Comment on above: Order Comment: Speci men Type: BLOOD SPECIMENOrdering Facility: [facility] Address: [address] [place] [address] Performed By: #### 2 4323-8 ####[facility]ORATORYCLIA [id number] [address] STATES [facility] Anion gap [Moles/Vol] 13 mmol/L Normal 8-15 [facility] Comment on above: Order Comment: Speci men Type: BLOOD SPECIMENOrdering Facility: [facility] Address: [address] [place] [address] Performed By: #### 2 4323-8 ####[facility]ATORYCLIA [id number] [address] [place] AST With P-5'-P [Catalytic activity/Vol] Normal [facility] Comment on above: Order Comment: Speci men Type: BLOOD SPECIMENOrdering Facility: [facility] Address: [address] [place] [address] Result Comment: Unab le to assay due to interference from hemolysis. Suggest reorder as clinically indicated. Performed By: #### 2 4323-8 ####[facility]ORYCLIA [id number] [place] [address] [place] Bilirubin [Mass/Vol] 0.2 mg/dL Normal 0.2-1.3 [facility] Comment on above: Order Comment: Speci men Type: BLOOD SPECIMENOrdering Facility: [facility] Address: [address] [place] [address] Performed By: #### 2 4323-8 ####[facility]ORYCLIA [id number] [place] [address] [place] Calcium [Mass/Vol] 9.3 mg/dL Normal 8.5-10.2 [facility] Comment on above: Order Comment: Speci men Type: BLOOD SPECIMENOrdering Facility: [facility] Address: [address] [place] [address] Performed By: #### 2 4323-8 ####[facility]ORATORYCLIA [id number] [place] [address] [place] Chloride [Moles/Vol] 106 mmol/L Normal 98-107 [facility] Comment on above: Order Comment: Speci men Type: BLOOD SPECIMENOrdering Facility: [facility] Address: [address] [place] [address] Performed By: #### 2 4323-8 ####[facility]ORYCLIA [id number] [place] [address] [place] CO2 [Moles/Vol] 18 mmol/L Low 22-30 [facility] Comment on above: Order Comment: Speci men Type: BLOOD SPECIMENOrdering Facility: [facility] Address: [address] [place] [address] Performed By: #### 2 4323-8 ####[facility]ORYCLIA [id number] [place] [address] [place] Creatinine [Mass/Vol] 2.81 mg/dL High 0.58-0.96 [facility] Comment on above: Order Comment: Speci men Type: BLOOD SPECIMENOrdering Facility: [facility] Address: [address] [place] [address] Performed By: #### 2 4323-8 ####[facility]ITALCLIA [id number] [place] [address] [place] eGFRcr SerPlBld CKD-EPI 2020 18 mL/min/1.73m??? Low >=60 [facility] Comment on above: Order Comment: Mavis lira Type: BLOOD SPECIMENOrdering Facility: [facility] Address: [address] [place] [address] Result Comment: Capri mated Glomerular Filtration Rate (eGFR) is calculated using the 2020 CKD-EPI creatinine equation. This equation utilizes serum creatinine, sex, and age as parameters. The creatinine assay has traceable calibration to isotope dilution-mass spectrometry. Refer to KDIGO guidelines for clinical interpretation. In patients with unstable renal function, e.g. those with acute kidney injury, the eGFR may not accurately reflect actual GFR. Performed By: #### 2 4323-8 ####[facility]ITALCLIA [id number] [place] [address] [place] Glucose [Mass/Vol] 188 mg/dL High 74-99 [facility] Comment on above: Order Comment: Mavis lira Type: BLOOD SPECIMENOrdering Facility: [facility] Address: [address] [place] [address] Result Comment: The [place] Diabetes Association (ADA) provides guidance for cutoff values for fasting glucose and random glucose. The ADA defines fasting as no caloric intake for at least 8 hours. Fasting plasma glucose results between 100 to 125 mg/dL indicate increased risk for diabetes (prediabetes).Fasting plasma glucose results greater than or equal to 126 mg/dL meet the criteria for diagnosis of diabetes. In the absence of unequivocal hyperglycemia, results should be confirmed by repeat testing. In a patient with classic symptoms of hyperglycemia or hyperglycemic crisis, random plasma glucose results greater than or equal to 200 mg/dL meet the criteria for diagnosis of diabetes.Reference: Standards of Medical Care in Diabetes 2016, [place] [employer]. Diabetes Care. 2016.39(Suppl 1). Performed By: #### 2 4323-8 ####[facility]ORATORYCLIA [id number] [place] [address] [place] Potassium [Moles/Vol] 5.7 mmol/L High 3.7-5.1 [facility] Comment on above: Order Comment: Speci men Type: BLOOD SPECIMENOrdering Facility: [facility] Address: [address] [place] [address] Performed By: #### 2 4323-8 ####[facility]ORATORYCLIA [id number] [address] [place] Protein [Mass/Vol] 7.6 g/dL Normal 6.3-8.0 [facility] Comment on above: Order Comment: Speci men Type: BLOOD SPECIMENOrdering Facility: [facility] Address: [address] [place] [address] Performed By: #### 2 4323-8 ####[facility]ORATORYCLIA [id number] [address] [place] Sodium [Moles/Vol] 137 mmol/L Normal 136-144 [facility] Comment on above: Order Comment: Speci men Type: BLOOD SPECIMENOrdering Facility: [facility] Address: [address] [place] [address] Performed By: #### 2 4323-8 ####[facility]ORATORYCLIA [id number] [address] [place] Urea nitrogen [Mass/Vol] 49 mg/dL High 7-21 [facility] Comment on above: Order Comment: Speci men Type: BLOOD SPECIMENOrdering Facility: [facility] Address: [address] [place] [address] Performed By: #### 2 4323-8 ####[facility]ORATORYCLIA [id number] [place] [address] [place] ECG COMPLETEon 11-29-2024 ECG COMPLETE Normal [facility] ED NOTEon 11-29-2024 ED NOTE HNO ID: [id number] Author: CATHRYN RUTLEDGE RN Service: ? Author Type: Registered Nurse Type: ED Notes Filed: 11/29/2024 13:06 Note Text: Bed: 19-ED Expected date: Expected time: Means of arrival: Comments: triage Normal [facility] ED PROV NOTEon 11-29-2024 ED PROV NOTE Normal [facility] HISTORY PHYSICALon HISTORY PHYSICAL Normal [facility] Urinalysis complete panel (U )on 11-29-2024 Bacteria LM.HPF (Urine sed) [#/Area] Many Abnormal None Seen [facility] Comment on above: Order Comment: Speci men Type: URINE SPECIMENOrdering Facility: [facility] Address: [address] [place] [address] Performed By: #### 2 4356-8, 630-4 ####[facility]ORATORYCLIA [id number] [place] [address] [place] Bilirubin Ql (U) Negative Normal Negative [facility] Comment on above: Order Comment: Speci men Type: URINE SPECIMENOrdering Facility: [facility] Address: [address] [place] [address] Performed By: #### 2 4356-8, 420-4 ####[facility]ORATORYCLIA [id number] [address] [place] Clarity (Unsp spec) Turbid Abnormal Clear [facility] Comment on above: Order Comment: Speci men Type: URINE SPECIMENOrdering Facility: [facility] Address: [address] [place] [address] Performed By: #### 2 4356-8, 664-4 ####[facility] LABORATORYCLIA [id number] [address] Color (U) Colorless Normal yellow [facility] Comment on above: Order Comment: Speci men Type: URINE SPECIMENOrdering Facility: [facility] Address: [address] [place] [address] Performed By: #### 2 4356-8, 630-4 ####[facility] LABORATORYCLIA [id number] [address] [place] Epithelial cells LM.HPF (Urine sed) [#/Area] Few Abnormal None Seen [facility] Comment on above: Order Comment: Speci men Type: URINE SPECIMENOrdering Facility: [facility] Address: [address] [place] [address] Performed By: #### 2 4356-8, 630-4 ####[facility]ORATORYCLIA [id number] [place], [place] [address] [place] [address] [place] Glucose Test strip (U) [Mass/Vol] Trace Normal Trace, Negative [facility] Comment on above: Order Comment: Speci men Type: URINE SPECIMENOrdering Facility: [facility] Address: [address] [place] [address] Performed By: #### 2 4356-8, 630-4 ####[facility]ORATORYCLIA [id number] [address] [place] Hemoglobin Ql (U) Trace Normal Negative, Trace [facility] Comment on above: Order Comment: Speci men Type: URINE SPECIMENOrdering Facility: [facility] Address: [address] [place] [address] Performed By: #### 2 4356-8, 630-4 ####[facility] LABORATORYCLIA [id number] [place] [address] [place] Ketones Ql (U) Negative Normal Negative, Trace [facility] Comment on above: Order Comment: Speci men Type: URINE SPECIMENOrdering Facility: [facility] Address: [address] [place] [address] Performed By: #### 2 4356-8, 630-4 ####[facility] LABORATORYCLIA [id number] [address] Leukocyte esterase Test strip Ql (U) 500 Carlos Manuel/uL Abnormal Negative, 25 Carlos Manuel/uL [facility] Comment on above: Order Comment: Speci men Type: URINE SPECIMENOrdering Facility: [facility] Address: [address] [place] [address] Performed By: #### 2 4356-8, 630-4 ####[facility]ATORYCLIA [id number] [place] [address] [place] Nitrite Ql (U) Negative Normal Negative [facility] Comment on above: Order Comment: Speci men Type: URINE SPECIMENOrdering Facility: [facility] Address: [address] [place] [address] Performed By: #### 2 4356-8, 630-4 ####[facility] LABORATORYCLIA [id number] [place] [id number] [place] [facility] pH (U) 7.5 [pH] Normal 5.0-8.0 [facility] Comment on above: Order Comment: Speci men Type: URINE SPECIMENOrdering Facility: [facility] Address: [address] [place] [address] Performed By: #### 2 4356-8, -4 ####[facility] LABORATORYCLIA [id number] [address] Protein (U) [Mass/Vol] Negative Normal Trace, Negative [facility] Comment on above: Order Comment: Speci men Type: URINE SPECIMENOrdering Facility: [facility] Address: [address] [place] [address] Performed By: #### 2 4356-8, 4 ####[facility] LABORATORYCLIA [id number] [address] STATES [facility] RBC LM.HPF (Urine sed) [#/Area] 0-3 /HPF Normal 0-3 /HPF [facility] Comment on above: Order Comment: Speci men Type: URINE SPECIMENOrdering Facility: [facility] Address: [address] [place] [address] Performed By: #### 2 4356-8, - ####[facility] LABORATORYCLIA [id number] [address] [place] Specific gravity (U) [Rel density] 1.007 Normal 1.005-1.030 [facility] Comment on above: Order Comment: Speci men Type: URINE SPECIMENOrdering Facility: [facility] Address: [address] [place] [address] Performed By: #### 2 4356-8, 630-4 ####[facility] LABORATORYCLIA [id number] [address] Urobilinogen Ql (U) Normal Normal Normal [facility] Comment on above: Order Comment: Speci men Type: URINE SPECIMENOrdering Facility: [facility] Address: [address] [place] [address] Performed By: #### 2 4356-8, 630-4 ####[facility] LABORATORYCLIA [id number] [address] [place] WBC LM.HPF (Urine sed) [#/Area] /[HPF] Abnormal 0-5 /HPF [facility] Comment on above: Order Comment: Speci men Type: URINE SPECIMENOrdering Facility: [facility] Address: [address] [place] [address] Performed By: #### 2 4356-8, 630-4 ####[facility] LABORATORYCLIA [id number] [address] [place] CNOVon 11-10-2024 CNOV Normal [facility] CNPNon 11-05-2024 CNPN Normal [facility] CNPNon 10-29-2024 CNPN Normal [facility] BRIEF OP NOTon 10-19-2024 BRIEF OP NOT Normal [facility] HISTORY PHYSICALon 5 HISTORY PHYSICAL Normal [facility] IR EXCHANGE NEPH TUBEon 10-02 IR EXCHANGE NEPH TUBE Normal [facility] CRYSTAL SCREENING W TOMOon 09-29 CRYSTAL SCREENING W LUDMILA Normal [facility] BRIEF OP NOTon 08-26-2024 BRIEF OP NOT Normal [facility] HISTORY PHYSICALon 5 HISTORY PHYSICAL Normal [facility] IR EXCHANGE NEPH TUBEon 08-03 IR EXCHANGE NEPH TUBE Normal [facility] BRIEF OP NOTon 06-25-2024 BRIEF OP NOT Normal [facility] HISTORY PHYSICALon 5 HISTORY PHYSICAL Normal [facility] IR EXCHANGE NEPH TUBEon 06-03 IR EXCHANGE NEPH TUBE Normal [facility] BRIEF OP NOTon 04-29-2024 BRIEF OP NOT Normal [facility] IR EXCHANGE NEPH TUBEon 04-05 IR EXCHANGE NEPH TUBE Normal [facility] Inital Evaluation (1) - PTon 04-28-2024 Inital Evaluation (1) - PT [facility] Physical [facility] [address] [place] [address] / REHABILITATION SERVICES INITIAL EVALUATION MR#: [id number] Acct: [id number] Name: JULIA WILLOUGHBY Rep #: [id number] : 1955 68 From: Karolyn LUNDY Referring Dr.: Dr. Tiffany Garvin DO Status: REG RCR Insurance: [employer] PPO SELF PAY INSURANCE Patient's Visit Information Visit Information Visit Information: JULIA WILLOUGHBY is a 68 year old F referred to Physical Therapy by Dr. 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 Date of Evaluation: 04/27/24 Physical Therapist: KAMRON Betancourt Visit Plan Frequency: 2-3x /Week Duration: 3 Months Plan: Be careful of the nephrostomy bag on the L side of Lumbar spine and pt has a colostomy bag as well. 2-3X/ week for 12 weeks to work on R hip and core strength, standing upright posture and balance, functional transfers such as sit to stand and mat table to wheelchair (control instead of quick movements), gait training with new prosthesis starting in // bars and progressing to walker etc. Give HEP strengthening as well HEP: standing up tall at the sink instead of flexed trunk, lying supine to stretch out hip flexor, bridges to work on glut strength Subjective Subjective: The amputation is 15 years old but this is a new prosthesis. She lost weight and the prosthesis kept falling off and so she got a new one. She got the new leg 02-21-24. She has had some illness etc and had a hard time coming to PT but now she is ready to do PT. Robbi michael [facility] wants to come down sometime to make sure it is fitting. She has a hard time knowing if her leg is secure inside the prosthesis. She wants to walk and not have to walk hunched over. She has been using a wheelchair at home. Her prosthetic leg gets in the way. She hops around the house with one leg. She has not walked outside in 15 years. She reports that her leg never felt comfortable enough to walk much on it and was afraid of falling. She has a plate in her car that she can drive L footed. She has never been taught any exercises that she can do at home. She gets pain on the L medial knee that comes and goes. She showers on one leg and can get into the shower herself with a shower chair. She has two chairs, one in the house and one in the garage. 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 Objective Objective: LE MMT: R hip flex 6.6 and L 15.3 L knee flex 20.3 L knee ext 15.3 Sit to stand: uses B arms on the // bars to pull self up. Had pt sit in a chair and try and use one arm on the chair rail to get up and she ended up trying to use her other arm on the // bar to pull herself upwards Standing posture is flexed at the trunk holding onto the // bars. Pt was able to walk the length of the // bars twice using B UE's and CGA with decreased heel strike and prosthesis giving out twice and using her arms to help hold herself up. (pt admits to not knowing how to hold her hip to help control the prosthetic knee). Pt is able to transfer from the wheelchair to a mat table with CGA.... she tends to just throw herself over to the mat as opposed to being controlled. Going back from the mat to the chair pt went too fast and got her prosthetic leg caught up with her good leg and almost fell FW out of the chair but therapist had her by the belt to get her back into the chair. Supine lying: pt does not have R full hip extension AROM. She is able to lay on her belly and has weak B hip extensors and unable to raise R hip into extension without assistance. Balance/Special Test Scores Lower Extremity Functional Score: 32 Goals Goal 1:: I HEP Goal Time Frame: 8-12 Weeks Goal 2:: Be able to walk 100 feet with rolling walker with good gait mechanics and consistent heel strike with CGA Goal Time Frame: 8-12 Weeks Goal 3:: Be able to walk the length of the // bars 4 times in a row without having her Prosthetic give out on her with CGA Goal Time Frame: 4-6 Weeks Goal 4:: Be able to get up from a chair with 1 arm and stand with 1 UE support with CGA Goal Time Frame: 4-6 Weeks Rehabilitation Potential Rehabilitation Potential: Good Anticipated Interventions Patient/Client Instruction: Educate patient on: Condition and Plan of Care For the Purpose of:: To improve nutrient delivery to tissue, To improve muscle performance and motor function, To improve ability to perform ADL's, To increase tolerance to activity/condition/position , To improve performance and independence with ADL's, To decrease level of supervision to perform tasks, To improve ability of physical actions for home/community/work/leisure , To improve gait and locomotor functions, To improve health of tissue (more content not included)... Normal [facility] CNPNon 04-21-2024 CNPN Normal [facility] BRIEF OP NOTon 04-09-2024 BRIEF OP NOT Normal [facility] HISTORY PHYSICALon 5 HISTORY PHYSICAL Normal [facility] IR EXCHANGE NEPH TUBEon IR EXCHANGE NEPH TUBE Normal [facility] BRIEF OP NOTon 03-11-2024 BRIEF OP NOT Normal [facility] HISTORY PHYSICALon 5 HISTORY PHYSICAL Normal [facility] IR EXCHANGE NEPH TUBEon IR EXCHANGE NEPH TUBE Normal [facility] CNOVon 02-13-2024 CNOV Normal [facility] CNPTOUTREACHon 02-10-2024 CNPTOUTREACH Normal [facility] CNPTOUTREACHon 02-06-2024 CNPTOUTREACH Normal [facility] Bacteria Tiss Culton 024 Bacteria identified Cx Nom (Tiss) CULTURE, TISSUE: No growth GRAM STAIN: No organisms seen No Polymorphonuclear Leukocytes Normal [facility] Comment on above: Performed By: #### 4 3408-4, 580-1, 62504-2 ####[facility] LABORATORYCLIA [id number] [place] [address] [place] Basic metabolic 2000 panelon 02-05-2024 Anion gap [Moles/Vol] 13 mmol/L Normal 8- [facility] Comment on above: Order Comment: Speci men Type: BLOOD SPECIMENOrdering Facility: [facility] Address: [address] [place] [address] Performed By: #### 2 4321-2 ####[facility] LABORATORYCLIA [id number] [place] [address] [place] Calcium [Mass/Vol] 11.9 mg/dL High 8.5-10.2 [facility] Comment on above: Order Comment: Speci men Type: BLOOD SPECIMENOrdering Facility: [facility] Address: [address] [place] [address] Performed By: #### 2 4321-2 ####[facility] LABORATORYCLIA [id number] [place] [address] [place] Chloride [Moles/Vol] 106 mmol/L Normal 98-107 [facility] Comment on above: Order Comment: Speci men Type: BLOOD SPECIMENOrdering Facility: [facility] Address: [address] [place] [address] Performed By: #### 2 4321-2 ####[facility] LABORATORYCLIA [id number] [place] [address] [place] CO2 [Moles/Vol] 17 mmol/L Low 22-30 [facility] Comment on above: Order Comment: Speci men Type: BLOOD SPECIMENOrdering Facility: [facility] Address: [address] [place] [address] Performed By: #### 2 4321-2 ####[facility] LABORATORYCLIA [id number] [place] [address] [place] Creatinine [Mass/Vol] 2.74 mg/dL High 0.58-0.96 [facility] Comment on above: Order Comment: Speci men Type: BLOOD SPECIMENOrdering Facility: [facility] Address: [address] [place] [address] Performed By: #### 2 4321-2 ####[facility]ORATORYCLIA [id number] [address] [place] Creatinine and Glomerular filtration rate.predicted panel (S/P/Bld) 18 mL/min/1.73m??? Low >=60 [facility] Comment on above: Order Comment: Mavis lira Type: BLOOD SPECIMENOrdering Facility: [facility] Address: [address] [place] [address] Result Comment: Capri mated Glomerular Filtration Rate (eGFR) is calculated using the 2020 CKD-EPI creatinine equation. This equation utilizes serum creatinine, sex, and age as parameters. The creatinine assay has traceable calibration to isotope dilution-mass spectrometry. Refer to KDIGO guidelines for clinical interpretation. In patients with unstable renal function, e.g. those with acute kidney injury, the eGFR may not accurately reflect actual GFR. Performed By: #### 2 4321-2 ####[facility] LABORATORYCLIA [id number] [place] [address] [place] Glucose [Mass/Vol] 136 mg/dL High 74-99 [facility] Comment on above: Order Comment: Mavis lira Type: BLOOD SPECIMENOrdering Facility: [facility] Address: [address] [place] [address] Result Comment: The [place] Diabetes Association (ADA) provides guidance for cutoff values for fasting glucose and random glucose. The ADA defines fasting as no caloric intake for at least 8 hours. Fasting plasma glucose results between 100 to 125 mg/dL indicate increased risk for diabetes (prediabetes).Fasting plasma glucose results greater than or equal to 126 mg/dL meet the criteria for diagnosis of diabetes. In the absence of unequivocal hyperglycemia, results should be confirmed by repeat testing. In a patient with classic symptoms of hyperglycemia or hyperglycemic crisis, random plasma glucose results greater than or equal to 200 mg/dL meet the criteria for diagnosis of diabetes.Reference: Standards of Medical Care in Diabetes 2016, [place] [employer] Association. Diabetes Care. 2016.39(Suppl 1). Performed By: #### 2 4321-2 ####[facility] LABORATORYCLIA [id number] [place] [address] [place] Potassium [Moles/Vol] 3.8 mmol/L Normal 3.7-5.1 [facility] Comment on above: Order Comment: Mavis lira Type: BLOOD SPECIMENOrdering Facility: [facility] Address: [address] [place] [address] Performed By: #### 2 4321-2 ####[facility] LABORATORYCLIA [id number] [address] STATES OF [facility] Sodium [Moles/Vol] 136 mmol/L Normal 136-144 [facility] Comment on above: Order Comment: Speci men Type: BLOOD SPECIMENOrdering Facility: [facility] Address: [address] [place] [address] Performed By: #### 2 4321-2 ####[facility] LABORATORYCLIA [id number] [address] [place] Urea nitrogen [Mass/Vol] 32 mg/dL High 7-21 [facility] Comment on above: Order Comment: Speci men Type: BLOOD SPECIMENOrdering Facility: [facility] Address: [address] [place] [address] Performed By: #### 2 4321-2 ####[facility] LABORATORYCLIA [id number] [address] STATES OF [facility] CASE MANAGEMon 02-05-2024 CASE MANAGEM Normal [facility] CASE MANAGEM Normal [facility] CBC panel Auto (Bld)on 02-04 Erythrocyte distribution width (RBC) [Ratio] 14.2 % Normal 11.5-15.0 [facility] Comment on above: Order Comment: Speci men Type: BLOOD SPECIMENOrdering Facility: [facility] Address: [address] [place] [address] Performed By: #### 5 8410-2 ####[facility] LABORATORYCLIA [id number] [address] [place] Hematocrit (Bld) [Volume fraction] 28.1 % Low 36.0-46.0 [facility] Comment on above: Order Comment: Speci men Type: BLOOD SPECIMENOrdering Facility: [facility] Address: [address] [place] [address] Performed By: #### 5 8410-2 ####[facility] LABORATORYCLIA [id number] [address] [place] Hemoglobin (Bld) [Mass/Vol] 8.8 g/dL Low 11.5-15.5 [facility] Comment on above: Order Comment: Speci men Type: BLOOD SPECIMENOrdering Facility: [facility] Address: [address] [place] [address] Performed By: #### 5 8410-2 ####[facility] LABORATORYCLIA [id number] [address] STATES [facility] MCH (RBC) [Entitic mass] 30.4 pg Normal 26.0-34.0 [facility] Comment on above: Order Comment: Speci men Type: BLOOD SPECIMENOrdering Facility: [facility] Address: [address] [place] [address] Performed By: #### 5 8410-2 ####[facility] LABORATORYCLIA [id number] [address] STATES [facility] MCHC (RBC) [Mass/Vol] 31.3 g/dL Normal 30.5-36.0 [facility] Comment on above: Order Comment: Speci men Type: BLOOD SPECIMENOrdering Facility: [facility] Address: [address] [place] [address] Performed By: #### 5 8410-2 ####[facility]ORATORYCLIA [id number] [address] MCV (RBC) [Entitic vol] 97.2 fL Normal 80.0-100.0 [facility] Comment on above: Order Comment: Speci men Type: BLOOD SPECIMENOrdering Facility: [facility] Address: [address] [place] [address] Performed By: #### 5 8410-2 ####[facility]ORATORYCLIA [id number] [address] Nucleated RBC (Bld) [#/Vol] 10*3/uL Normal <0.01 [facility] Comment on above: Order Comment: Speci men Type: BLOOD SPECIMENOrdering Facility: [facility] Address: [address] [place] [address] Performed By: #### 5 8410-2 ####[facility]ORATORYCLIA [id number] [place] [address] [place] Platelet mean volume (Bld) [Entitic vol] 8.9 fL Low 9.0-12.7 [facility] Comment on above: Order Comment: Speci men Type: BLOOD SPECIMENOrdering Facility: [facility] Address: [address] [place] [address] Performed By: #### 5 8410-2 ####[facility]ORATORYCLIA [id number] [place] [address] [place] Platelets (Bld) [#/Vol] 296 10*3/uL Normal 150-400 [facility] Comment on above: Order Comment: Speci men Type: BLOOD SPECIMENOrdering Facility: [facility] Address: [address] [place] [address] Performed By: #### 5 8410-2 ####[facility] LABORATORYCLIA [id number] [place] [address] [place] RBC (Bld) [#/Vol] 2.89 10*6/uL Low 3.90-5.20 [facility] Comment on above: Order Comment: Speci men Type: BLOOD SPECIMENOrdering Facility: [facility] Address: [address] [place] [address] Performed By: #### 5 8410-2 ####[facility] LABORATORYCLIA [id number] [place] [address] [place] WBC (Bld) [#/Vol] 8.92 10*3/uL Normal 3.70-11.00 [facility] Comment on above: Order Comment: Speci men Type: BLOOD SPECIMENOrdering Facility: [facility] Address: [address] [place] [address] Performed By: #### 5 8410-2 ####[facility] LABORATORYCLIA [id number] [place] [address] [place] CNDSon 02-05-2024 CNDS Normal [facility] Fungus Spec Culton Fungus identified Cx Nom (Unsp spec) CULTURE, FUNGAL: No Fungus isolated after 28 days Normal [facility] Comment on above: Performed By: #### 4 3408-4, 580-1, 18156-1 ####[facility] LABORATORYCLIA [id number] [place] [address] [place] KAPPA/ZAMORA,FREE,SERon 2023 Immunoglobulin light chains.kappa.free (S) [Mass/Vol] 104.2 mg/L High 3.3-19.4 [facility] Comment on above: Order Comment: Speci men Type: BLOOD SPECIMENOrdering Facility: [facility] Address: [address] [place] [address] Result Comment: Rare ly, increased serum free light chains levels may not be detected or accurately quantified due to prozone phenomenon or in high viscosity samples using this immunoturbidimetric assay. Correlation with other laboratory results and clinical findings is recommended.The [place] Free Light Chain was performed using the Binding Site Optilite immunoturbidimetric method. Result obtained with different assay methods or kits cannot be used interchangeably. Performed By: #### K LFRS ####[facility] LABCLIA [id number] [place] [address] [place] Immunoglobulin light chains.kappa/Immuno globulin light chains.lambda (S) [Mass ratio] 1.24 Normal 0.26-1.65 [facility] Comment on above: Order Comment: Speci [facility] Type: BLOOD SPECIMENOrdering Facility: [facility] Address: [address] [place] [address] Performed By: #### K LFRS ####[facility] LABCLIA [id number] [place] [address] [place] Immunoglobulin light chains.lambda.free [Mass/Vol] 84.1 mg/L High 5.7-26.3 [facility] Comment on above: Order Comment: Speci men Type: BLOOD SPECIMENOrdering Facility: [facility] Address: [address] [place] [address] Result Comment: Rare ly, increased serum free light chains levels may not be detected or accurately quantified due to prozone phenomenon or in high viscosity samples using this immunoturbidimetric assay. Correlation with other laboratory results and clinical findings is recommended.The [place] Free Light Chain was performed using the Binding Site Optilite immunoturbidimetric method. Result obtained with different assay methods or kits cannot be used interchangeably. Performed By: #### K LFRS ####[facility] LABCLIA [id number] [address] [place] Microorganism Spec Culton Microorganism identified Cx Nom (Unsp spec) CULTURE, AFB: No Acid Fast Bacilli isolated after 42 days AFB STAIN: No acid fast bacilli seen by fluorochrome stain Normal [facility] Comment on above: Performed By: #### 4 3408-4, 580-1, 70879-1 ####[facility] LABORATORYCLIA [id number] [address] OF [facility] PROTEIN ELECTROPHORESIS SERU M (P)on 02-05-2024 Albumin [Mass/Vol] 2.54 g/dL Low 3.43-5.41 [facility] Comment on above: Order Comment: Speci men Type: BLOOD SPECIMENOrdering Facility: [facility] Address: [address] [place] [address] Performed By: #### L [id number] ####[facility] LABCLIA [id number] [place] [address] [place] Alpha 1 globulin Elph [Mass/Vol] 0.41 g/dL Normal 0.18-0.43 [facility] Comment on above: Order Comment: Speci men Type: BLOOD SPECIMENOrdering Facility: [facility] Address: [address] [place] [address] Performed By: #### L [id number] ####[facility] LABCLIA [id number] [place] [address] [place] Alpha 2 globulin Elph [Mass/Vol] 0.86 g/dL Normal 0.42-0.98 [facility] Comment on above: Order Comment: Speci men Type: BLOOD SPECIMENOrdering Facility: [facility] Address: [address] [place] [address] Performed By: #### L [id number] ####[facility] LABCLIA [id number] [place] [address] [place] Beta globulin Elph [Mass/Vol] 0.79 g/dL Normal 0.61-1.17 [facility] Comment on above: Order Comment: Speci men Type: BLOOD SPECIMENOrdering Facility: [facility] Address: [address] [place] [address] Performed By: #### L [id number] ####[facility] LABCLIA [id number] [place] [address] [place] Gamma globulin Elph [Mass/Vol] 1.40 g/dL Normal 0.53-1.51 [facility] Comment on above: Order Comment: Speci men Type: BLOOD SPECIMENOrdering Facility: [facility] Address: [address] [place] [address] Performed By: #### L [id number] ####[facility] LABCLIA [id number] [address] [place] M-PROTEIN LOCATION Normal [facility] Comment on above: Order Comment: Speci men Type: BLOOD SPECIMENOrdering Facility: [facility] Address: [address] [place] [address] Result Comment: Not Applicable. Performed By: #### L [id number] ####[facility] LABCLIA [id number] [place] [address] [place] Protein Fractions [Interp] No definitive M protein is identified on protein electrophoresis. Normal No definitive M protein is identified on protein electrophore sis. [facility] Comment on above: Order Comment: Speci men Type: BLOOD SPECIMENOrdering Facility: [facility] Address: [address] [place] [address] Performed By: #### L [id number] ####[facility] LABCLIA [id number] [place] [address] [place] Protein.monoclonal Elph [Mass/Vol] 0.00 g/dL Normal <=0.00 [facility] Comment on above: Order Comment: Speci men Type: BLOOD SPECIMENOrdering Facility: [facility] Address: [address] [place] [address] Performed By: #### L [id number] ####[facility] LABIA [id number] [place] [address] [place] SPE STAFF REVIEW Reviewed by Zack cowan MD, Ph.D ([id number]) Normal [facility] Comment on above: Order Comment: Speci men Type: BLOOD SPECIMENOrdering Facility: [facility] Address: [address] [place] [address] Performed By: #### L [id number] ####[facility] [id number] [place] [address] [place] Prot SerPl-mCncon 02-05-2024 Protein [Mass/Vol] 6.0 g/dL Low 6.3-8.0 [facility] Comment on above: Order Comment: Speci men Type: BLOOD SPECIMENOrdering Facility: [facility] Address: [address] [place] [address] Performed By: #### 2 885-2 ####[facility] [id number] [address] [place] 1,25-dihydroxyvitamin D3 [Ma ss/Vol]on 02-04-2024 VIT D1,25 DIHYDROXY 51.9 pg/mL Normal 19.9-79.3 [facility] Comment on above: Order Comment: Speci men Type: BLOOD SPECIMENOrdering Facility: [facility] Address: [address] [place] [address] Performed By: #### 1 649-3 ####[facility] LABIA [id number] [address] [place] BRIEF OP NOTon 02-04-2024 BRIEF OP NOT Normal [facility] Basic metabolic 2000 panelon 02-04-2024 Anion gap [Moles/Vol] 9 mmol/L Normal 8-15 [facility] Comment on above: Order Comment: Speci men Type: BLOOD SPECIMENOrdering Facility: [facility] Address: [address] [place] [address] Performed By: #### 2 4321-2 ####[facility]ORATORYCLIA [id number] [place] [address] [place] Calcium [Mass/Vol] 12.7 mg/dL High 8.5-10.2 [facility] Comment on above: Order Comment: Speci men Type: BLOOD SPECIMENOrdering Facility: [facility] Address: [address] [place] [address] Performed By: #### 2 4321-2 ####[facility] LABORATORYCLIA [id number] [place] [address] [place] Chloride [Moles/Vol] 111 mmol/L High 98-107 [facility] Comment on above: Order Comment: Speci men Type: BLOOD SPECIMENOrdering Facility: [facility] Address: [address] [place] [address] Performed By: #### 2 4321-2 ####[facility]ORATORYCLIA [id number] [place] [address] [place] CO2 [Moles/Vol] 19 mmol/L Low 22-30 [facility] Comment on above: Order Comment: Speci men Type: BLOOD SPECIMENOrdering Facility: [facility] Address: [address] [place] [address] Performed By: #### 2 4321-2 ####[facility] LABORATORYCLIA [id number] [place] [address] [place] Creatinine [Mass/Vol] 3.24 mg/dL High 0.58-0.96 [facility] Comment on above: Order Comment: Speci men Type: BLOOD SPECIMENOrdering Facility: [facility] Address: [address] [place], [place] [address] Performed By: #### 2 4321-2 ####[facility] LABORATORYCLIA [id number] [place] [id number] [place] [facility] Creatinine and Glomerular filtration rate.predicted panel (S/P/Bld) 15 mL/min/1.73m??? Low >=60 [facility] Comment on above: Order Comment: Mavis lira Type: BLOOD SPECIMENOrdering Facility: [facility] Address: [address] [place] [address] Result Comment: Capri mated Glomerular Filtration Rate (eGFR) is calculated using the 2020 CKD-EPI creatinine equation. This equation utilizes serum creatinine, sex, and age as parameters. The creatinine assay has traceable calibration to isotope dilution-mass spectrometry. Refer to KDIGO guidelines for clinical interpretation. In patients with unstable renal function, e.g. those with acute kidney injury, the eGFR may not accurately reflect actual GFR. Performed By: #### 2 4321-2 ####[facility]PITALCLIA [id number] [place] [address] [place] Glucose [Mass/Vol] 99 mg/dL Normal 74-99 [facility] Comment on above: Order Comment: Mavis lira Type: BLOOD SPECIMENOrdering Facility: [facility] Address: [address] [place] [address] Result Comment: The [place] Diabetes [employer] (ADA) provides guidance for cutoff values for fasting glucose and random glucose. The ADA defines fasting as no caloric intake for at least 8 hours. Fasting plasma glucose results between 100 to 125 mg/dL indicate increased risk for diabetes (prediabetes).Fasting plasma glucose results greater than or equal to 126 mg/dL meet the criteria for diagnosis of diabetes. In the absence of unequivocal hyperglycemia, results should be confirmed by repeat testing. In a patient with classic symptoms of hyperglycemia or hyperglycemic crisis, random plasma glucose results greater than or equal to 200 mg/dL meet the criteria for diagnosis of diabetes.Reference: Standards of Medical Care in Diabetes 2016, [place] [employer] Association. Diabetes Care. 2016.39(Suppl 1). Performed By: #### 2 4321-2 ####[facility] LABORATORYCLIA [id number] [place] [id number] [place] Potassium [Moles/Vol] 4.3 mmol/L Normal 3.7-5.1 [facility] Comment on above: Order Comment: Speci men Type: BLOOD SPECIMENOrdering Facility: [facility] Address: [address] [place] [address] Performed By: #### 2 4321-2 ####[facility] LABORATORYCLIA [id number] [address] STATES OF [facility] Sodium [Moles/Vol] 139 mmol/L Normal 136-144 [facility] Comment on above: Order Comment: Speci men Type: BLOOD SPECIMENOrdering Facility: [facility] Address: [address] [place] [address] Performed By: #### 2 4321-2 ####[facility] LABORATORYCLIA [id number] [address] STATES [facility] Urea nitrogen [Mass/Vol] 36 mg/dL High 7-21 [facility] Comment on above: Order Comment: Speci men Type: BLOOD SPECIMENOrdering Facility: [facility] Address: [address] [place] [address] Performed By: #### 2 4321-2 ####[facility] LABORATORYCLIA [id number] [address] STATES [facility] CBC panel Auto (Bld)on 02-03 Erythrocyte distribution width (RBC) [Ratio] 14.2 % Normal 11.5-15.0 [facility] Comment on above: Order Comment: Speci men Type: BLOOD SPECIMENOrdering Facility: [facility] Address: [address] [place] [address] Performed By: #### 5 8410-2 ####[facility] LABORATORYCLIA [id number] [address] Hematocrit (Bld) [Volume fraction] 30.5 % Low 36.0-46.0 [facility] Comment on above: Order Comment: Speci men Type: BLOOD SPECIMENOrdering Facility: [facility] Address: [address] [place] [address] Performed By: #### 5 8410-2 ####[facility] LABORATORYCLIA [id number] [address] Hemoglobin (Bld) [Mass/Vol] 9.8 g/dL Low 11.5-15.5 [facility] Comment on above: Order Comment: Speci men Type: BLOOD SPECIMENOrdering Facility: [facility] Address: [address] [place] [address] Performed By: #### 5 8410-2 ####[facility] LABORATORYCLIA [id number] [address] MCH (RBC) [Entitic mass] 30.6 pg Normal 26.0-34.0 [facility] Comment on above: Order Comment: Speci men Type: BLOOD SPECIMENOrdering Facility: [facility] Address: [address] [place] [address] Performed By: #### 5 8410-2 ####[facility] LABORATORYCLIA [id number] [address] MCHC (RBC) [Mass/Vol] 32.1 g/dL Normal 30.5-36.0 [facility] Comment on above: Order Comment: Speci men Type: BLOOD SPECIMENOrdering Facility: [facility] Address: [address] [place] [address] Performed By: #### 5 8410-2 ####[facility] LABORATORYCLIA [id number] [address] MCV (RBC) [Entitic vol] 95.3 fL Normal 80.0-100.0 [facility] Comment on above: Order Comment: Speci men Type: BLOOD SPECIMENOrdering Facility: [facility] Address: [address] [place] [address] Performed By: #### 5 8410-2 ####[facility] LABORATORYCLIA [id number] [address] Nucleated RBC (Bld) [#/Vol] 10*3/uL Normal <0.01 [facility] Comment on above: Order Comment: Speci men Type: BLOOD SPECIMENOrdering Facility: [facility] Address: [address] [place] [address] Performed By: #### 5 8410-2 ####[facility] LABORATORYCLIA [id number] [address] [place] Platelet mean volume (Bld) [Entitic vol] 8.8 fL Low 9.0-12.7 [facility] Comment on above: Order Comment: Speci men Type: BLOOD SPECIMENOrdering Facility: [facility] Address: [address] [place] [address] Performed By: #### 5 8410-2 ####[facility] LABORATORYCLIA [id number] [address] [place] Platelets (Bld) [#/Vol] 338 10*3/uL Normal 150-400 [facility] Comment on above: Order Comment: Speci men Type: BLOOD SPECIMENOrdering Facility: [facility] Address: [address] [place] [address] Performed By: #### 5 8410-2 ####[facility] LABORATORYCLIA [id number] [place] [address] [place] RBC (Bld) [#/Vol] 3.20 10*6/uL Low 3.90-5.20 [facility] Comment on above: Order Comment: Speci men Type: BLOOD SPECIMENOrdering Facility: [facility] Address: [address] [place] [address] Performed By: #### 5 8410-2 ####[facility] LABORATORYCLIA [id number] [place] [address] [place] WBC (Bld) [#/Vol] 9.78 10*3/uL Normal 3.70-11.00 [facility] Comment on above: Order Comment: Speci men Type: BLOOD SPECIMENOrdering Facility: [facility] Address: [address] [place] [address] Performed By: #### 5 8410-2 ####[facility] LABORATORYCLIA [id number] [address] [place] CONSULTon 02-04-2024 CONSULT Normal [facility] CONSULT PROGon 02-04-2024 CONSULT PROG Normal [facility] CT BIOPSY RETROPERIT LYMPH N ODEon 02-04-2024 CT BIOPSY RETROPERIT LYMPH NODE Normal [facility] FLOW CYTOMETRY FOR LEUKEMIA/ LYMPHOMA (FCLL) PERFORMABLEon 02-04-2024 FLOW CYTOMETRY ORDER STATUS Results will be reported under F case ID when completed Normal [facility] Comment on above: Order Comment: Speci men Type: TISSUE SPECIMENOrdering Facility: [facility] Address: [address] [place] [address] Performed By: #### F CLLP ####[facility] LABRUT[facility] [id number] [address] FLOW CYTOMETRY FOR LEUKEMIA/ LYMPHOMA (FCLL) REFLEXon 02-04-2024 DIAGNOSIS COMMENT Normal [facility] Comment on above: Order Comment: Speci men Type: TISSUE SPECIMENOrdering Facility: [facility] Address: [address] [place] [address] Result Comment: lThi s test was developed and its performance characteristics determined by [facility]'s [facility] Pathology and Laboratory Medicine [place] ([facility]). It has not been cleared or approved by the FDA. -[facility] is regulated under CLIA as qualified to perform high-complexity testing. This test is used for clinical purposes. It should not be regarded as investigational or for research. Performed By: #### F CLLRFLX ####[facility] LABIA [id number] [address] [place] Result Comment: Repo rt from [facility] main, flow cytometry demonstrated:InterpretationLimited specimen with only rare lymphocytes for evaluation. The B cells show a slight lambda skew but are comprised of only rare events. They are negative for CD5 and CD10.Correlation with the clinical and histopathologic findings is suggested.Please see complete reportSections demonstrate lymph node cores with focal fibrosis and scattered nonnecrotizing granulomatous inflammation with multinucleated giant cells and asteroid bodies in a background of small lymphocytes and plasma cells. Special stains for AFB and GMS are negative for mycobacteria and fungal elements, respectively. Polarizable material is absent. Immunohistochemical stains for CD3, CD20, CD10, CD5, BCL6, Bcl-2, CD21, cyclin D1, CD45, Ki-67 and CD138 highlight only few, small, scattered nodules of CD20 positive small B cells occasionally surrounding granulomas. CD3 highlights interfollicular T cells. CD138 highlights many admixed plasma cells which are mix of kappa and lambda by CISH. Immunohistochemical stain for CD10 highlights only rare cells. Immunohistochemical stain for CD5 highlights T cells similar to CD3. CD43 stains T cells and histiocytes. BCL6 stains only occasional cells including histiocytes. Cyclin D1 is negative in the B cells. CD21 appears to stain dendritic networks in the B-cell nodules. These nodules also are Bcl-2 positive. Ki-67 demonstrates low staining including in the B-cell component.The findings are of nonnecrotizing granulomatous inflammation which may be seen with neoplastic, infectious, or reactive conditions including sarcoidosis or lymphoma. No definite lymphoproliferative disorder is identified here although the sampling of the lymphocytes is scant. Recommend clinical and radiographic correlation. If clinical concern for lymphoma persists, additional lymph node sampling may be useful.Dr. César Bernal reviewed the case and agrees with the diagnosis.Laboratory Developed Test (LDT) Disclaimer:Performance characteristics of immunohistochemical, immunofluorescent and chromogenic in-situ hybridization tests have been determined by the performing laboratory within [facility]???s [facility] Pathology and Laboratory Medicine Department ([facility], [facility], [facility], [facility], [facility], [facility], or [facility]) in a manner consistent with CLIA requirements. One or more of these tests have not been cleared or approved by the FDA. [facility] is regulated under CLIA as qualified to perform high-complexity testing. These tests are used for clinical purposes. They should not be regarded as investigational or for research. Positive and negative controls stain appropriately. Performed By: #### S ####[facility] LABORATORYCLIA [id number] [place] [address] [place] FINAL PERFORMING LAB Normal [facility] Comment on above: Order Comment: Speci men Type: TISSUE SPECIMENOrdering Facility: [facility] Address: [address] [place], [place] [address] [address] Result Comment: Diag nostic interpretation performed at [facility], [facility] [place] [address] CLIA# [id number] Director: Ryan Stanley M.D. Performed By: #### F CLLRFLX ####[facility] LABCLIA [id number] [place] [address] [place] Result Comment: Diag nostic interpretation performed at [facility], [address] [place] [address] CLIA# [id number] Director: Konrad Guevara M.D. Performed By: #### S ####[facility] LABORATORYCLIA [id number] [address] FLOW CYTOMETRY RESULTS Normal [facility] Comment on above: Order Comment: Speci men Type: TISSUE SPECIMENOrdering Facility: [facility] Address: [address] [place] [address] Result Comment: Spec imen type: Lymph nodeMorphology comments: See associated surgical pathology report.Lymphocyte gate: 9% of total events, very low cellularity specimenA limited flow cytometric analysis was performed on the lymph node due to low cell yield. Antibodies to CD5, CD10, CD19, CD20, CD23, CD45, CD123, CD200, and kappa and lambda light chains were used. This shows that 9% of total events have the CD45 and side scatter properties of lymphocytes. The lymphocytes comprise only 24 events total. The include possible CD5 positive T cells and a limited number of B cells with a slight lambda skew. The B cells are negative for CD5 and CD10. Overall, the findings are limited for definitive diagnosis.[facility]/PTC 02/06/2024 Performed By: #### F CLLRFLX ####[facility] LABCLIA [id number] [place] [address] [place] GROSS DESCRIPTION Normal [facility] Comment on above: Order Comment: Speci men Type: TISSUE SPECIMENOrdering Facility: [facility] Address: [address] [place] [address] Result Comment: Bakari Garcia ymph Node (Specify Site in Comments)Received 1 thread of tissue measuring 1.5cm in length. Performed By: #### F CLLRFLX ####[facility] LABCLIA [id number] [address] Result Comment: A. L ymph Node (Specify Site in Comments)Received in saline labeled lymph node are multiple white-red, soft tissue cores aggregating to 1.5 x 0.5 x 0.1 cm. A touch prep is performed. All of the tissue from saline is divided and submitted for microbiology and in RPMI for flow cytometry. Also received in formalin labeled peritoneum lymph node are multiple ojeda-red, soft tissue cores aggregating to 1.5 x 0.7 x 0.1 cm. Totally submitted in 3 cassettes in formalin.Gross examination performed at [facility], [address] [place], [place] [address]RSA February 05, 2024 8:52 AM Performed By: #### S ####[facility] LABORATORYCLIA [id number] [address] INTERPRETATION Normal [facility] Comment on above: Order Comment: Speci men Type: TISSUE SPECIMENOrdering Facility: [facility] Address: [address] [place] [address] Result Comment: Limi sean specimen with only rare lymphocytes for evaluation. The B cells show a slight lambda skew but are comprised of only rare events. They are negative for CD5 and CD10.Correlation with the clinical and histopathologic findings is suggested.[facility] February 08, 2024 Performed By: #### F CLLRFLX ####[facility] LABCLIA [id number] [address] [place] HISTORY PHYSICALon HISTORY PHYSICAL Normal [facility] PTH RELATED PEPTIDEon 2023 PTH RELATED PEPTIDE 6.7 pmol/L High 0.0-3.4 [facility] Comment on above: Order Comment: Speci men Type: BLOOD SPECIMENOrdering Facility: [facility] Address: [address] [place] [address] Result Comment: INTE RPRETIVE INFORMATION: Parathyroid Hormone-Related PeptideThis test was developed and its performance characteristicsdetermined by [facility]. It has not been cleared orapproved by the [place] Food and Drug Administration. This test wasperformed in a CLIA certified laboratory and is intended forclinical purposes.Performed By: [facility] [place], [place] [address]Ddfydtafqs Director: Jesus Chan MD, PhDCLIA Number: [id number] Performed By: #### P THPEP ####[facility] [id number] [place] [address] SURGICAL PATHOLOGYon 024 CASE REPORT Normal [facility] Comment on above: Order Comment: Speci men Type: TISSUE SPECIMENOrdering Facility: [facility] Address: [address] [place] [address] Result Comment: Surg ical Pathology Report Case: [id number] Provider: Latia Moody, Collected: 02/04/2024 04:30 PM MD HAYDEEOrdering Location: [facility] Received: 02/05/2024 07:18 AM INTERVENTIONAL RADIOLOGYPathologist: Irina Fox MDSpecimen: Lymph Node (Specify Site in Comments) Performed By: #### S ####[facility] LABORATORYCLIA [id number] [address] CLINICAL HISTORY Retroperitoneal adenopathy Normal [facility] Comment on above: Order Comment: Speci men Type: TISSUE SPECIMENOrdering Facility: [facility] Address: [address] [place] [address] Performed By: #### S ####[facility] LABORATORYCLIA [id number] [address] FINAL DIAGNOSIS Normal [facility] Comment on above: Order Comment: Speci men Type: TISSUE SPECIMENOrdering Facility: [facility] Address: [address] [place] [address] Result Comment: Bakari Garcia ymph node, retroperitoneal, biopsy:- Nonnecrotizing granulomatous inflammation and scant lymphoid sampling. See comment. Performed By: #### S ####[facility]ORATORYCLIA [id number] [place] [address] [place] Basic metabolic 2000 panelon 02-03-2024 Anion gap [Moles/Vol] 10 mmol/L Normal 8-15 [facility] Comment on above: Order Comment: Speci men Type: BLOOD SPECIMENOrdering Facility: [facility] Address: [address] [place] [address] Performed By: #### 2 4321-2 ####[facility] LABORATORYCLIA [id number] [place] [address] [place] Calcium [Mass/Vol] 12.3 mg/dL High 8.5-10.2 [facility] Comment on above: Order Comment: Speci men Type: BLOOD SPECIMENOrdering Facility: [facility] Address: [address] [place] [address] Performed By: #### 2 4321-2 ####[facility] LABORATORYCLIA [id number] [place] [address] [place] Chloride [Moles/Vol] 107 mmol/L Normal 98-107 [facility] Comment on above: Order Comment: Speci men Type: BLOOD SPECIMENOrdering Facility: [facility] Address: [address] [place] [address] Performed By: #### 2 4321-2 ####[facility]ORATORYCLIA [id number] [place] [address] [place] CO2 [Moles/Vol] 16 mmol/L Low 22-30 [facility] Comment on above: Order Comment: Speci men Type: BLOOD SPECIMENOrdering Facility: [facility] Address: [address] [place] [address] Performed By: #### 2 4321-2 ####[facility]ORATORYCLIA [id number] [place] [address] [place] Creatinine [Mass/Vol] 3.21 mg/dL High 0.58-0.96 [facility] Comment on above: Order Comment: Mavis lira Type: BLOOD SPECIMENOrdering Facility: [facility] Address: [address] [place] [address] Performed By: #### 2 4321-2 ####[facility] LABORATORYCLIA [id number] [place] [address] [facility] Creatinine and Glomerular filtration rate.predicted panel (S/P/Bld) 15 mL/min/1.73m??? Low >=60 [facility] Comment on above: Order Comment: Mavis lira Type: BLOOD SPECIMENOrdering Facility: [facility] Address: [address] [place] [address] Result Comment: Capri mated Glomerular Filtration Rate (eGFR) is calculated using the 2020 CKD-EPI creatinine equation. This equation utilizes serum creatinine, sex, and age as parameters. The creatinine assay has traceable calibration to isotope dilution-mass spectrometry. Refer to KDIGO guidelines for clinical interpretation. In patients with unstable renal function, e.g. those with acute kidney injury, the eGFR may not accurately reflect actual GFR. Performed By: #### 2 4321-2 ####[facility] LABORATORYCLIA [id number] [place] [id number] [place] Glucose [Mass/Vol] 96 mg/dL Normal 74-99 [facility] Comment on above: Order Comment: Mavis lira Type: BLOOD SPECIMENOrdering Facility: [facility] Address: [address] [place] [address] Result Comment: The [place] Diabetes [employer] (ADA) provides guidance for cutoff values for fasting glucose and random glucose. The ADA defines fasting as no caloric intake for at least 8 hours. Fasting plasma glucose results between 100 to 125 mg/dL indicate increased risk for diabetes (prediabetes).Fasting plasma glucose results greater than or equal to 126 mg/dL meet the criteria for diagnosis of diabetes. In the absence of unequivocal hyperglycemia, results should be confirmed by repeat testing. In a patient with classic symptoms of hyperglycemia or hyperglycemic crisis, random plasma glucose results greater than or equal to 200 mg/dL meet the criteria for diagnosis of diabetes.Reference: Standards of Medical Care in Diabetes 2016, [place] [employer]. Diabetes Care. 2016.39(Suppl 1). Performed By: #### 2 4321-2 ####[facility] LABORATORYCLIA [id number] [address] [place] Potassium [Moles/Vol] 4.3 mmol/L Normal 3.7-5.1 [facility] Comment on above: Order Comment: Speci men Type: BLOOD SPECIMENOrdering Facility: [facility] Address: [address] [place] [address] Performed By: #### 2 4321-2 ####[facility] LABORATORYCLIA [id number] [address] STATES OF [facility] Sodium [Moles/Vol] 133 mmol/L Low 136-144 [facility] Comment on above: Order Comment: Speci men Type: BLOOD SPECIMENOrdering Facility: [facility] Address: [address] [place] [address] Performed By: #### 2 4321-2 ####[facility] LABORATORYCLIA [id number] [address] [place] Urea nitrogen [Mass/Vol] 42 mg/dL High 7-21 [facility] Comment on above: Order Comment: Speci men Type: BLOOD SPECIMENOrdering Facility: [facility] Address: [address] [place] [address] Performed By: #### 2 4321-2 ####[facility] LABORATORYCLIA [id number] [address] CBC panel Auto (Bld)on 02-02 Erythrocyte distribution width (RBC) [Ratio] 14.1 % Normal 11.5-15.0 [facility] Comment on above: Order Comment: Speci men Type: BLOOD SPECIMENOrdering Facility: [facility] Address: [address] [place] [address] Performed By: #### 5 8410-2 ####[facility] LABORATORYCLIA [id number] [address] Hematocrit (Bld) [Volume fraction] 27.1 % Low 36.0-46.0 [facility] Comment on above: Order Comment: Speci men Type: BLOOD SPECIMENOrdering Facility: [facility] Address: [address] [place] [address] Performed By: #### 5 8410-2 ####[facility] LABORATORYCLIA [id number] [address] STATES OF [facility] Hemoglobin (Bld) [Mass/Vol] 8.6 g/dL Low 11.5-15.5 [facility] Comment on above: Order Comment: Speci men Type: BLOOD SPECIMENOrdering Facility: [facility] Address: [address] [place] [address] Performed By: #### 5 8410-2 ####[facility] LABORATORYCLIA [id number] [address] [place] MCH (RBC) [Entitic mass] 30.7 pg Normal 26.0-34.0 [facility] Comment on above: Order Comment: Speci men Type: BLOOD SPECIMENOrdering Facility: [facility] Address: [address] [place] [address] Performed By: #### 5 8410-2 ####[facility] LABORATORYCLIA [id number] [address] [place] MCHC (RBC) [Mass/Vol] 31.7 g/dL Normal 30.5-36.0 [facility] Comment on above: Order Comment: Speci men Type: BLOOD SPECIMENOrdering Facility: [facility] Address: [address] [place] [address] Performed By: #### 5 8410-2 ####[facility] LABORATORYCLIA [id number] [address] [place] MCV (RBC) [Entitic vol] 96.8 fL Normal 80.0-100.0 [facility] Comment on above: Order Comment: Speci men Type: BLOOD SPECIMENOrdering Facility: [facility] Address: [address] [place] [address] Performed By: #### 5 8410-2 ####[facility] LABORATORYCLIA [id number] [place] [address] [place] Nucleated RBC (Bld) [#/Vol] 10*3/uL Normal <0.01 [facility] Comment on above: Order Comment: Speci men Type: BLOOD SPECIMENOrdering Facility: [facility] Address: [address] [place] [address] Performed By: #### 5 8410-2 ####[facility] LABORATORYCLIA [id number] [place] [address] [place] Platelet mean volume (Bld) [Entitic vol] 8.9 fL Low 9.0-12.7 [facility] Comment on above: Order Comment: Speci men Type: BLOOD SPECIMENOrdering Facility: [facility] Address: [address] [place] [address] Performed By: #### 5 8410-2 ####[facility] LABORATORYCLIA [id number] [address] [place] Platelets (Bld) [#/Vol] 326 10*3/uL Normal 150-400 [facility] Comment on above: Order Comment: Speci men Type: BLOOD SPECIMENOrdering Facility: [facility] Address: [address] [place] [address] Performed By: #### 5 8410-2 ####[facility] LABORATORYCLIA [id number] [place] [address] [place] RBC (Bld) [#/Vol] 2.80 10*6/uL Low 3.90-5.20 [facility] Comment on above: Order Comment: Speci men Type: BLOOD SPECIMENOrdering Facility: [facility] Address: [address] [place] [address] Performed By: #### 5 8410-2 ####[facility] LABORATORYCLIA [id number] [address] [place] WBC (Bld) [#/Vol] 7.48 10*3/uL Normal 3.70-11.00 [facility] Comment on above: Order Comment: Speci men Type: BLOOD SPECIMENOrdering Facility: [facility] Address: [address] [place] [address] Performed By: #### 5 8410-2 ####[facility] LABORATORYCLIA [id number] [place] [address] [place] 1,25-dihydroxyvitamin D3 [Ma ss/Vol]on 02-02-2024 VIT D1,25 DIHYDROXY 41.1 pg/mL Normal 19.9-79.3 [facility] Comment on above: Order Comment: Speci men Type: BLOOD SPECIMENOrdering Facility: [facility] Address: [address] [place] [address] Performed By: #### 1 649-3 ####[facility] LABCLIA [id number] [place] [address] [place] Basic metabolic 2000 panelon 02-02-2024 Anion gap [Moles/Vol] 12 mmol/L Normal 8-15 [facility] Comment on above: Order Comment: Speci men Type: BLOOD SPECIMENOrdering Facility: [facility] Address: [address] [place] [address] Performed By: #### 2 4321-2 ####[facility] LABORATORYCLIA [id number] [place] [address] [place] Calcium [Mass/Vol] 12.6 mg/dL High 8.5-10.2 [facility] Comment on above: Order Comment: Speci men Type: BLOOD SPECIMENOrdering Facility: [facility] Address: [address] [place] [address] Performed By: #### 2 4321-2 ####[facility] LABORATORYCLIA [id number] [place] [id number] [place] Chloride [Moles/Vol] 111 mmol/L High 98-107 [facility] Comment on above: Order Comment: Speci men Type: BLOOD SPECIMENOrdering Facility: [facility] Address: [address] [place] [address] Performed By: #### 2 4321-2 ####[facility] LABORATORYCLIA [id number] [address] [place] CO2 [Moles/Vol] 14 mmol/L Low 22-30 [facility] Comment on above: Order Comment: Speci men Type: BLOOD SPECIMENOrdering Facility: [facility] Address: [address] [place] [address] Performed By: #### 2 4321-2 ####[facility] LABORATORYCLIA [id number] [address] [place] Creatinine [Mass/Vol] 3.90 mg/dL High 0.58-0.96 [facility] Comment on above: Order Comment: Speci men Type: BLOOD SPECIMENOrdering Facility: [facility] Address: [address] [place] [address] Performed By: #### 2 4321-2 ####[facility] LABORATORYCLIA [id number] [address] Creatinine and Glomerular filtration rate.predicted panel (S/P/Bld) 12 mL/min/1.73m??? Low >=60 [facility] Comment on above: Order Comment: Speci men Type: BLOOD SPECIMENOrdering Facility: [facility] Address: [address] [place] [address] Result Comment: Capri mated Glomerular Filtration Rate (eGFR) is calculated using the 2020 CKD-EPI creatinine equation. This equation utilizes serum creatinine, sex, and age as parameters. The creatinine assay has traceable calibration to isotope dilution-mass spectrometry. Refer to KDIGO guidelines for clinical interpretation. In patients with unstable renal function, e.g. those with acute kidney injury, the eGFR may not accurately reflect actual GFR. Performed By: #### 2 4321-2 ####[facility] LABORATORYCLIA [id number] [address] [place] Glucose [Mass/Vol] 94 mg/dL Normal 74-99 [facility] Comment on above: Order Comment: Speci men Type: BLOOD SPECIMENOrdering Facility: [facility] Address: [address] [place] [address] Result Comment: The [place] Diabetes [employer] (ADA) provides guidance for cutoff values for fasting glucose and random glucose. The ADA defines fasting as no caloric intake for at least 8 hours. Fasting plasma glucose results between 100 to 125 mg/dL indicate increased risk for diabetes (prediabetes).Fasting plasma glucose results greater than or equal to 126 mg/dL meet the criteria for diagnosis of diabetes. In the absence of unequivocal hyperglycemia, results should be confirmed by repeat testing. In a patient with classic symptoms of hyperglycemia or hyperglycemic crisis, random plasma glucose results greater than or equal to 200 mg/dL meet the criteria for diagnosis of diabetes.Reference: Standards of Medical Care in Diabetes 2016, [place] [employer]. Diabetes Care. 2016.39(Suppl 1). Performed By: #### 2 4321-2 ####[facility] LABORATORYCLIA [id number] [address] [place] Potassium [Moles/Vol] 4.4 mmol/L Normal 3.7-5.1 [facility] Comment on above: Order Comment: Speci men Type: BLOOD SPECIMENOrdering Facility: [facility] Address: [address] [place] [address] Performed By: #### 2 1-2 ####[facility] LABORATORYCLIA [id number] [place] [address] [place] Sodium [Moles/Vol] 137 mmol/L Normal 136-144 [facility] Comment on above: Order Comment: Speci men Type: BLOOD SPECIMENOrdering Facility: [facility] Address: [address] [place] [address] Performed By: #### 2 4321-2 ####[facility] LABORATORYCLIA [id number] [place] [address] [place] Urea nitrogen [Mass/Vol] 47 mg/dL High 7-21 [facility] Comment on above: Order Comment: Speci men Type: BLOOD SPECIMENOrdering Facility: [facility] Address: [address] [place] [address] Performed By: #### 2 4321-2 ####[facility] LABORATORYCLIA [id number] [address] [place] CASE MGT INIT ASSESon 2023 CASE MGT INIT ASSES Normal [facility] CBC panel Auto (Bld)on 02-01 Erythrocyte distribution width (RBC) [Ratio] 13.9 % Normal 11.5-15.0 [facility] Comment on above: Order Comment: Speci men Type: BLOOD SPECIMENOrdering Facility: [facility] Address: [address] [place] [address] Performed By: #### 5 8410-2 ####[facility] LABORATORYCLIA [id number] [address] STATES OF [facility] Hematocrit (Bld) [Volume fraction] 28.9 % Low 36.0-46.0 [facility] Comment on above: Order Comment: Speci men Type: BLOOD SPECIMENOrdering Facility: [facility] Address: [address] [place] [address] Performed By: #### 5 8410-2 ####[facility] LABORATORYCLIA [id number] [address] OF [facility] Hemoglobin (Bld) [Mass/Vol] 9.3 g/dL Low 11.5-15.5 [facility] Comment on above: Order Comment: Speci men Type: BLOOD SPECIMENOrdering Facility: [facility] Address: [address] [place] [address] Performed By: #### 5 8410-2 ####[facility] LABORATORYCLIA [id number] [address] [place] MCH (RBC) [Entitic mass] 30.8 pg Normal 26.0-34.0 [facility] Comment on above: Order Comment: Speci men Type: BLOOD SPECIMENOrdering Facility: [facility] Address: [address] [place] [address] Performed By: #### 5 8410-2 ####[facility] LABORATORYCLIA [id number] [address] [place] MCHC (RBC) [Mass/Vol] 32.2 g/dL Normal 30.5-36.0 [facility] Comment on above: Order Comment: Speci men Type: BLOOD SPECIMENOrdering Facility: [facility] Address: [address] [place] [address] Performed By: #### 5 8410-2 ####[facility] LABORATORYCLIA [id number] [address] [place] MCV (RBC) [Entitic vol] 95.7 fL Normal 80.0-100.0 [facility] Comment on above: Order Comment: Speci men Type: BLOOD SPECIMENOrdering Facility: [facility] Address: [address] [place] [address] Performed By: #### 5 8410-2 ####[facility] LABORATORYCLIA [id number] [address] [place] Nucleated RBC (Bld) [#/Vol] 10*3/uL Normal <0.01 [facility] Comment on above: Order Comment: Speci men Type: BLOOD SPECIMENOrdering Facility: [facility] Address: [address] [place] [address] Performed By: #### 5 8410-2 ####[facility] LABORATORYCLIA [id number] [address] [place] Platelet mean volume (Bld) [Entitic vol] 8.9 fL Low 9.0-12.7 [facility] Comment on above: Order Comment: Speci men Type: BLOOD SPECIMENOrdering Facility: [facility] Address: [address] [place] [address] Performed By: #### 5 8410-2 ####[facility] LABORATORYCLIA [id number] [address] [place] Platelets (Bld) [#/Vol] 372 10*3/uL Normal 150-400 [facility] Comment on above: Order Comment: Speci men Type: BLOOD SPECIMENOrdering Facility: [facility] Address: [address] [place] [address] Performed By: #### 5 8410-2 ####[facility] LABORATORYCLIA [id number] [place] [address] [place] RBC (Bld) [#/Vol] 3.02 10*6/uL Low 3.90-5.20 [facility] Comment on above: Order Comment: Speci men Type: BLOOD SPECIMENOrdering Facility: [facility] Address: [address] [place] [address] Performed By: #### 5 8410-2 ####[facility] LABORATORYCLIA [id number] [place] [address] [place] WBC (Bld) [#/Vol] 9.00 10*3/uL Normal 3.70-11.00 [facility] Comment on above: Order Comment: Speci men Type: BLOOD SPECIMENOrdering Facility: [facility] Address: [address] [place] [address] Performed By: #### 5 8410-2 ####[facility] LABORATORYCLIA [id number] [address] PTH RELATED PEPTIDEon 2023 PTH RELATED PEPTIDE 7.0 pmol/L High 0.0-3.4 [facility] Comment on above: Order Comment: Speci men Type: BLOOD SPECIMENOrdering Facility: [facility] Address: [address] [place] [address] Result Comment: INTE RPRETIVE INFORMATION: Parathyroid Hormone-Related PeptideThis test was developed and its performance characteristicsdetermined by [facility]. It has not been cleared orapproved by the [place] Food and Drug Administration. This test wasperformed in a CLIA certified laboratory and is intended forclinical purposes.Performed By: [facility] [place], [place] [address]N[facility] Director: Jesus Chan MD, PhDCLIA Number: [id number] Performed By: #### P THPEP ####[facility] LABORATORIESCLIA [id number] [place] [address] 25(OH)D3 [facility] 2023 25-hydroxyvitamin D3 [Mass/Vol] 27.7 ng/mL Low >=30.0 [facility] Comment on above: Order Comment: Speci men Type: BLOOD SPECIMENOrdering Facility: [facility] Address: [address] [place] [address] Result Comment: Clas sification of 25 [place] Vitamin D status:Deficiency: <= 20.0 ng/ml.Insufficiency: 21.0-29.0 ng/ml.Sufficiency: >= 30.0 ng/ml. Performed By: #### 1 989-3 ####[facility] LABORATORYCLIA [id number] [address] OF [facility] BRIEF OP NOTon 02-01-2024 BRIEF OP NOT Normal [facility] Bacteria Ur Culton Bacteria identified Cx Nom (U) Abnormal [facility] Comment on above: Performed By: #### 6 30-4 ####[facility] LABORATORYCLIA [id number] [address] Bacteria identified Cx Nom (U) CULTURE, URINE: <10,000 CFU/ml Normal Urogen[facility] Isidra Normal [facility] Comment on above: Performed By: #### 6 30-4, 46268-4 ####[facility] LABORATORYCLIA [id number] [address] [place] Basic metabolic 2000 panelon 02-01-2024 Anion gap [Moles/Vol] 12 mmol/L Normal 8-15 [facility] Comment on above: Order Comment: Speci men Type: BLOOD SPECIMENOrdering Facility: [facility] Address: [address] [place] [address] Performed By: #### 2 4321-2 ####[facility] LABORATORYCLIA [id number] [place] [address] [place] Calcium [Mass/Vol] 13.7 mg/dL High 8.5-10.2 [facility] Comment on above: Order Comment: Speci men Type: BLOOD SPECIMENOrdering Facility: [facility] Address: [address] [place] [address] Performed By: #### 2 4321-2 ####[facility] LABORATORYCLIA [id number] [address] [place] Chloride [Moles/Vol] 105 mmol/L Normal 98-107 [facility] Comment on above: Order Comment: Speci men Type: BLOOD SPECIMENOrdering Facility: [facility] Address: [address] [place] [address] Performed By: #### 2 4321-2 ####[facility] LABORATORYCLIA [id number] [place] [id number] [place] CO2 [Moles/Vol] 17 mmol/L Low 22-30 [facility] Comment on above: Order Comment: Speci men Type: BLOOD SPECIMENOrdering Facility: [facility] Address: [address] [place] [address] Performed By: #### 2 4321-2 ####[facility] LABORATORYCLIA [id number] [address] STATES OF [facility] Creatinine [Mass/Vol] 4.08 mg/dL High 0.58-0.96 [facility] Comment on above: Order Comment: Speci men Type: BLOOD SPECIMENOrdering Facility: [facility] Address: [address] [place] [address] Performed By: #### 2 4321-2 ####[facility] LABORATORYCLIA [id number] [address] Creatinine and Glomerular filtration rate.predicted panel (S/P/Bld) 11 mL/min/1.73m??? Low >=60 [facility] Comment on above: Order Comment: Speci men Type: BLOOD SPECIMENOrdering Facility: [facility] Address: [address] [place] [address] Result Comment: Capri mated Glomerular Filtration Rate (eGFR) is calculated using the 2020 CKD-EPI creatinine equation. This equation utilizes serum creatinine, sex, and age as parameters. The creatinine assay has traceable calibration to isotope dilution-mass spectrometry. Refer to KDIGO guidelines for clinical interpretation. In patients with unstable renal function, e.g. those with acute kidney injury, the eGFR may not accurately reflect actual GFR. Performed By: #### 2 4321-2 ####[facility] LABORATORYCLIA [id number] [address] [place] Glucose [Mass/Vol] 120 mg/dL High 74-99 [facility] Comment on above: Order Comment: Speci men Type: BLOOD SPECIMENOrdering Facility: [facility] Address: [address] [place] [address] Result Comment: The [place] Diabetes [employer] (ADA) provides guidance for cutoff values for fasting glucose and random glucose. The ADA defines fasting as no caloric intake for at least 8 hours. Fasting plasma glucose results between 100 to 125 mg/dL indicate increased risk for diabetes (prediabetes).Fasting plasma glucose results greater than or equal to 126 mg/dL meet the criteria for diagnosis of diabetes. In the absence of unequivocal hyperglycemia, results should be confirmed by repeat testing. In a patient with classic symptoms of hyperglycemia or hyperglycemic crisis, random plasma glucose results greater than or equal to 200 mg/dL meet the criteria for diagnosis of diabetes.Reference: Standards of Medical Care in Diabetes 2016, [place] [employer]. Diabetes Care. 2016.39(Suppl 1). Performed By: #### 2 4321-2 ####[facility] LABORATORYCLIA [id number] [place] [address] [place] Potassium [Moles/Vol] 4.7 mmol/L Normal 3.7-5.1 [facility] Comment on above: Order Comment: Mavis soraya Type: BLOOD SPECIMENOrdering Facility: [facility] Address: [address] [place] [address] Performed By: #### 2 4321-2 ####[facility] LABORATORYCLIA [id number] [place] [address] [place] Sodium [Moles/Vol] 134 mmol/L Low 136-144 [facility] Comment on above: Order Comment: Speci men Type: BLOOD SPECIMENOrdering Facility: [facility] Address: [address] [place] [address] Performed By: #### 2 4321-2 ####[facility] LABORATORYCLIA [id number] [place] [address] [place] Urea nitrogen [Mass/Vol] 52 mg/dL High 7-21 [facility] Comment on above: Order Comment: Marinoi men Type: BLOOD SPECIMENOrdering Facility: [facility] Address: [address] [place] [address] Performed By: #### 2 4321-2 ####[facility] LABORATORYCLIA [id number] [address] CBC panel Auto (Bld)on 01-31 Erythrocyte distribution width (RBC) [Ratio] 14.1 % Normal 11.5-15.0 [facility] Comment on above: Order Comment: Speci men Type: BLOOD SPECIMENOrdering Facility: [facility] Address: [address] [place] [address] Performed By: #### 5 8410-2 ####[facility] LABORATORYCLIA [id number] [address] Hematocrit (Bld) [Volume fraction] 33.0 % Low 36.0-46.0 [facility] Comment on above: Order Comment: Speci men Type: BLOOD SPECIMENOrdering Facility: [facility] Address: [address] [place] [address] Performed By: #### 5 8410-2 ####[facility] LABORATORYCLIA [id number] [address] Hemoglobin (Bld) [Mass/Vol] 10.7 g/dL Low 11.5-15.5 [facility] Comment on above: Order Comment: Speci men Type: BLOOD SPECIMENOrdering Facility: [facility] Address: [address] [place] [address] Performed By: #### 5 8410-2 ####[facility] LABORATORYCLIA [id number] [address] STATES [facility] MCH (RBC) [Entitic mass] 31.3 pg Normal 26.0-34.0 [facility] Comment on above: Order Comment: Speci men Type: BLOOD SPECIMENOrdering Facility: [facility] Address: [address] [place] [address] Performed By: #### 5 8410-2 ####[facility] LABORATORYCLIA [id number] [address] MCHC (RBC) [Mass/Vol] 32.4 g/dL Normal 30.5-36.0 [facility] Comment on above: Order Comment: Speci men Type: BLOOD SPECIMENOrdering Facility: [facility] Address: [facility] [place] [address] Performed By: #### 5 8410-2 ####[facility] LABORATORYCLIA [id number] [address] STATES OF [facility] MCV (RBC) [Entitic vol] 96.5 fL Normal 80.0-100.0 [facility] Comment on above: Order Comment: Speci men Type: BLOOD SPECIMENOrdering Facility: [facility] Address: [address] [place] [address] Performed By: #### 5 8410-2 ####[facility] LABORATORYCLIA [id number] [address] [place] Nucleated RBC (Bld) [#/Vol] 10*3/uL Normal <0.01 [facility] Comment on above: Order Comment: Speci men Type: BLOOD SPECIMENOrdering Facility: [facility] Address: [address] [place] [address] Performed By: #### 5 8410-2 ####[facility] LABORATORYCLIA [id number] [address] [place] Platelet mean volume (Bld) [Entitic vol] 9.0 fL Normal 9.0-12.7 [facility] Comment on above: Order Comment: Speci men Type: BLOOD SPECIMENOrdering Facility: [facility] Address: [address] [place] [address] Performed By: #### 5 8410-2 ####[facility] LABORATORYCLIA [id number] [address] [place] Platelets (Bld) [#/Vol] 401 10*3/uL High 150-400 [facility] Comment on above: Order Comment: Speci men Type: BLOOD SPECIMENOrdering Facility: [facility] Address: [address] [place] [address] Performed By: #### 5 8410-2 ####[facility] LABORATORYCLIA [id number] [place] [address] [place] RBC (Bld) [#/Vol] 3.42 10*6/uL Low 3.90-5.20 [facility] Comment on above: Order Comment: Mavis lira Type: BLOOD SPECIMENOrdering Facility: [facility] Address: [address] [place] [address] Performed By: #### 5 8410-2 ####[facility] LABORATORYCLIA [id number] [place] [id number] [place] OF [facility] WBC (Bld) [#/Vol] 10.79 10*3/uL Normal 3.70-11.00 [facility] Comment on above: Order Comment: Mavis lira Type: BLOOD SPECIMENOrdering Facility: [facility] Address: [address] [place] [address] Performed By: #### 5 8410-2 ####[facility] LABORATORYCLIA [id number] [address] CONSULTon 02-01-2024 CONSULT Normal [facility] CONSULT Normal [facility] ED NOTEon 02-01-2024 ED NOTE Normal [facility] HISTORY PHYSICALon HISTORY PHYSICAL Normal [facility] HISTORY PHYSICAL Normal [facility] IR EXCHANGE NEPH TUBEon 01-04 IR EXCHANGE NEPH TUBE Normal [facility] PT panel Coag (PPP)on 2023 INR Coag (PPP) [Relative time] 1.0 {INR} Normal 0.9-1.3 [facility] Comment on above: Order Comment: Mavis lira Type: BLOOD SPECIMENOrdering Facility: [facility] Address: [address] [place] [address] Result Comment: Helen min K Antagonist (VKA) Therapeutic Range: INR 2 to 3 (Target INR of 2.5)Note: For patients treated with VKA drugs, such as warfarin, the [place] [employer] 2012 Guideline recommends a therapeutic INR range of 2 to 3 (target INR of 2.5). This recommendation includes high-risk patients with antiphospholipid syndrome with previous arterial or venous thromboembolism, current-generation mechanical or bioprosthetic aortic heart valve replacement.Note: Patients with mechanical aortic valve replacement and additional risk factors for thromboembolic events (atrial fibrillation, previous thromboembolism, LV dysfunction, hypercoagulable conditions) or an older generation mechanical AVR (i.e., ball in-Cage) or any mechanical MVR should have a INR therapeutic range of 2.5 to 3.5 (target INR of 3).Leyda GH, et al. Chest 2012, 141:7S-47SNishimura RA, et al. [facility] 2017, 70: 252-289 Performed By: #### 3 4528-0 ####[facility]PITALCLIA [id number] [address] STATES OF [facility] PT Coag (PPP) [Time] 10.5 s Normal 9.7-13.0 [facility] Comment on above: Order Comment: Speci men Type: BLOOD SPECIMENOrdering Facility: [facility] Address: [address] [place] [address] Performed By: #### 3 4528-0 ####[facility]PITALIA [id number] [address] PTH-Intact SerPl-ncon 11-3 Parathyrin.intact [Mass/Vol] 12 pg/mL Low 15-65 [facility] Comment on above: Order Comment: Speci men Type: BLOOD SPECIMENOrdering Facility: [facility] Address: [address] [place] [address] Result Comment: Test methodology for this assay has moved from Siemens Centaur XP to Nicole federico 8000 effective December 05, 2021. Please note there may be a change in the reporting units and/or reference range. Performed By: #### 2 731-8 ####[facility] LABORATORYCLIA [id number] [address] Urinalysis complete panel (U )on 02-01-2024 Bacteria LM.HPF (Urine sed) [#/Area] Few Abnormal None Seen [facility] Comment on above: Order Comment: Speci men Type: URINE SPECIMENOrdering Facility: [facility] Address: [address] [place] [address] Performed By: #### 6 30-4, 63511-0 ####[facility] LABORATORYCLIA [id number] [address] Bilirubin Ql (U) Negative Normal Negative [facility] Comment on above: Order Comment: Speci men Type: URINE SPECIMENOrdering Facility: [facility] Address: [address] [place] [address] Performed By: #### 6 30-4, 26606-7 ####[facility]ORATORYCLIA [id number] [address] [place] Clarity (Unsp spec) Turbid Abnormal Clear [facility] Comment on above: Order Comment: Speci men Type: URINE SPECIMENOrdering Facility: [facility] Address: [address] [place] [address] Performed By: #### 6 30-4, 12308-9 ####[facility] LABORATORYCLIA [id number] [address] STATES OF [facility] Color (U) [place] Abnormal yellow [facility] Comment on above: Order Comment: Speci men Type: URINE SPECIMENOrdering Facility: [facility] Address: [address] [place] [address] Performed By: #### 6 30-4, 46233-4 ####[facility] LABORATORYCLIA [id number] [address] [place] Glucose Test strip (U) [Mass/Vol] Negative Normal Trace, Negative [facility] Comment on above: Order Comment: Speci men Type: URINE SPECIMENOrdering Facility: [facility] Address: [address] [place] [address] Performed By: #### 6 30-4, 30922-9 ####[facility]ORATORYCLIA [id number] [address] Hemoglobin Ql (U) 2+ Abnormal Negative, Trace [facility] Comment on above: Order Comment: Speci men Type: URINE SPECIMENOrdering Facility: [facility] Address: [address] [place] [address] Performed By: #### 6 30-4, 90097-4 ####[facility] LABORATORYCLIA [id number] [place], [place] [id number] [place] [address] Ketones Ql (U) Negative Normal Negative, Trace [facility] Comment on above: Order Comment: Speci men Type: URINE SPECIMENOrdering Facility: [facility] Address: [address] [place] [address] Performed By: #### 6 30-4, 19403-4 ####[facility] LABORATORYCLIA [id number] [address] Leukocyte esterase Test strip Ql (U) 500 Carlos Manuel/uL Abnormal Negative, 25 Carlos Manuel/uL [facility] Comment on above: Order Comment: Speci men Type: URINE SPECIMENOrdering Facility: [facility] Address: [address] [place] [address] Performed By: #### 6 30-4, 87456-3 ####[facility] LABORATORYCLIA [id number] [address] STATES [facility] Nitrite Ql (U) Negative Normal Negative [facility] Comment on above: Order Comment: Speci men Type: URINE SPECIMENOrdering Facility: [facility] Address: [address] [place] [address] Performed By: #### 6 30-4, 88298-0 ####[facility] LABORATORYCLIA [id number] [address] [place] pH (U) 6.0 [pH] Normal 5.0-8.0 [facility] Comment on above: Order Comment: Speci men Type: URINE SPECIMENOrdering Facility: [facility] Address: [address] [place] [address] Performed By: #### 6 30-4, 79673-4 ####[facility] LABORATORYCLIA [id number] [address] Protein (U) [Mass/Vol] 1+ Abnormal Trace, Negative [facility] Comment on above: Order Comment: Speci men Type: URINE SPECIMENOrdering Facility: [facility] Address: [address] [place] [address] Performed By: #### 6 30-4, 75187-4 ####[facility] LABORATORYCLIA [id number] [address] STATES [facility] RBC LM.HPF (Urine sed) [#/Area] /[HPF] Abnormal 0-3 /HPF [facility] Comment on above: Order Comment: Speci men Type: URINE SPECIMENOrdering Facility: [facility] Address: [address] [place] [address] Performed By: #### 6 30-4, 35287-1 ####[facility] LABORATORYCLIA [id number] [address] [place] Specific gravity (U) [Rel density] 1.009 Normal 1.005-1.030 [facility] Comment on above: Order Comment: Speci men Type: URINE SPECIMENOrdering Facility: [facility] Address: [address] [place] [address] Performed By: #### 6 30-, 84831-3 ####[facility] LABORATORYCLIA [id number] [address] Urobilinogen Ql (U) Normal Normal Normal [facility] Comment on above: Order Comment: Speci men Type: URINE SPECIMENOrdering Facility: [facility] Address: [address] [place] [address] Performed By: #### 6 30-4, 43971-0 ####[facility] LABORATORYCLIA [id number] [address] [place] WBC LM.HPF (Urine sed) [#/Area] /[HPF] Abnormal 0-5 /HPF [facility] Comment on above: Order Comment: Speci men Type: URINE SPECIMENOrdering Facility: [facility] Address: [address] [place] [address] Performed By: #### 6 30-4, 12565-2 ####[facility] LABORATORYCLIA [id number] [address] [place] Basic metabolic 2000 panelon 01-31-2024 Anion gap [Moles/Vol] 13 mmol/L Normal 8-15 [facility] Comment on above: Order Comment: Speci men Type: BLOOD SPECIMENOrdering Facility: [facility] Address: [address] [place] [address] Performed By: #### 2 4321-2 ####[facility]ORATORYCLIA [id number] [place] [address] [place] Calcium [Mass/Vol] 14.4 mg/dL High 8.5-10.2 [facility] Comment on above: Order Comment: Speci men Type: BLOOD SPECIMENOrdering Facility: [facility] Address: [address] [place] [address] Performed By: #### 2 4321-2 ####[facility]ORATORYCLIA [id number] [place] [address] [place] Chloride [Moles/Vol] 104 mmol/L Normal 98-107 [facility] Comment on above: Order Comment: Speci men Type: BLOOD SPECIMENOrdering Facility: [facility] Address: [address] [place] [address] Performed By: #### 2 4321-2 ####[facility]ORATORYCLIA [id number] [place] [address] [place] CO2 [Moles/Vol] 18 mmol/L Low 22-30 [facility] Comment on above: Order Comment: Speci men Type: BLOOD SPECIMENOrdering Facility: [facility] Address: [address] [place] [address] Performed By: #### 2 4321-2 ####[facility]ORATORYCLIA [id number] [place] [address] [place] Creatinine [Mass/Vol] 3.90 mg/dL High 0.58-0.96 [facility] Comment on above: Order Comment: Speci men Type: BLOOD SPECIMENOrdering Facility: [facility] Address: [address] [place] [address] Performed By: #### 2 4321-2 ####[facility] [facility]ORATORYCLIA [id number] [place] [address] [place] Creatinine and Glomerular filtration rate.predicted panel (S/P/Bld) 12 mL/min/1.73m??? Low >=60 [facility] Comment on above: Order Comment: Mavis lira Type: BLOOD SPECIMENOrdering Facility: [facility] Address: [address] [place] [address] Result Comment: Capri mated Glomerular Filtration Rate (eGFR) is calculated using the 2020 CKD-EPI creatinine equation. This equation utilizes serum creatinine, sex, and age as parameters. The creatinine assay has traceable calibration to isotope dilution-mass spectrometry. Refer to KDIGO guidelines for clinical interpretation. In patients with unstable renal function, e.g. those with acute kidney injury, the eGFR may not accurately reflect actual GFR. Performed By: #### 2 4321-2 ####[facility] LABORATORYCLIA [id number] [place] [address] [place] Glucose [Mass/Vol] 107 mg/dL High 74-99 [facility] Comment on above: Order Comment: Mavis lira Type: BLOOD SPECIMENOrdering Facility: [facility] Address: [address] [place] [address] Result Comment: The [place] Diabetes [employer] (ADA) provides guidance for cutoff values for fasting glucose and random glucose. The ADA defines fasting as no caloric intake for at least 8 hours. Fasting plasma glucose results between 100 to 125 mg/dL indicate increased risk for diabetes (prediabetes).Fasting plasma glucose results greater than or equal to 126 mg/dL meet the criteria for diagnosis of diabetes. In the absence of unequivocal hyperglycemia, results should be confirmed by repeat testing. In a patient with classic symptoms of hyperglycemia or hyperglycemic crisis, random plasma glucose results greater than or equal to 200 mg/dL meet the criteria for diagnosis of diabetes.Reference: Standards of Medical Care in Diabetes 2016, [place] [employer]. Diabetes Care. 2016.39(Suppl 1). Performed By: #### 2 4321-2 ####[facility] LABORATORYCLIA [id number] [place] [id number] [place] Potassium [Moles/Vol] 4.5 mmol/L Normal 3.7-5.1 [facility] Comment on above: Order Comment: Speci men Type: BLOOD SPECIMENOrdering Facility: [facility] Address: [address] [place] [address] Performed By: #### 2 4321-2 ####[facility] LABORATORYCLIA [id number] [address] [place] Sodium [Moles/Vol] 135 mmol/L Low 136-144 [facility] Comment on above: Order Comment: Speci men Type: BLOOD SPECIMENOrdering Facility: [facility] Address: [address] [place] [address] Performed By: #### 2 4321-2 ####[facility] LABORATORYCLIA [id number] [address] [place] Urea nitrogen [Mass/Vol] 53 mg/dL High 7-21 [facility] Comment on above: Order Comment: Speci men Type: BLOOD SPECIMENOrdering Facility: [facility] Address: [address] [place] [address] Performed By: #### 2 4321-2 ####[facility] LABORATORYCLIA [id number] [address] [place] CBC W Auto Differential pane l (Bld)on 01-31-2024 Basophils (Bld) [#/Vol] 0.10 10*3/uL Normal <0.11 [facility] Comment on above: Order Comment: Speci men Type: BLOOD SPECIMENOrdering Facility: [facility] Address: [address] [place] [address] Performed By: #### 5 7021-8 ####[facility] LABORATORYCLIA [id number] [address] [place] Basophils/100 WBC (Bld) 0.6 % Normal [facility] Comment on above: Order Comment: Speci men Type: BLOOD SPECIMENOrdering Facility: [facility] Address: [address] [place] [address] Performed By: #### 5 7021-8 ####[facility] LABORATORYCLIA [id number] [place] [address] [place] Differential cell count method Nom (Bld) Auto Normal [facility] Comment on above: Order Comment: Speci men Type: BLOOD SPECIMENOrdering Facility: [facility] Address: [address] [place] [address] Performed By: #### 5 7021-8 ####[facility] LABORATORYCLIA [id number] [address] [place] Eosinophils (Bld) [#/Vol] 0.30 10*3/uL Normal <0.46 [facility] Comment on above: Order Comment: Speci men Type: BLOOD SPECIMENOrdering Facility: [facility] Address: [address] [place] [address] Performed By: #### 5 7021-8 ####[facility]ORATORYCLIA [id number] [address] Eosinophils/100 WBC (Bld) 1.9 % Normal [facility] Comment on above: Order Comment: Speci men Type: BLOOD SPECIMENOrdering Facility: [facility] Address: [address] [place] [address] Performed By: #### 5 7021-8 ####[facility] LABORATORYCLIA [id number] [address] Erythrocyte distribution width (RBC) [Ratio] 14.1 % Normal 11.5-15.0 [facility] Comment on above: Order Comment: Speci men Type: BLOOD SPECIMENOrdering Facility: [facility] Address: [address] [place] [address] Performed By: #### 5 7021-8 ####[facility] LABORATORYCLIA [id number] [address] [place] Hematocrit (Bld) [Volume fraction] 34.7 % Low 36.0-46.0 [facility] Comment on above: Order Comment: Speci men Type: BLOOD SPECIMENOrdering Facility: [facility] Address: [address] [place] [address] Performed By: #### 5 7021-8 ####[facility]ORATORYCLIA [id number] [address] [place] Hemoglobin (Bld) [Mass/Vol] 11.2 g/dL Low 11.5-15.5 [facility] Comment on above: Order Comment: Speci men Type: BLOOD SPECIMENOrdering Facility: [facility] Address: [address] [place] [address] Performed By: #### 5 7021-8 ####[facility] LABORATORYCLIA [id number] [place] [address] [place] Immature granulocytes (Bld) [#/Vol] 0.18 10*3/uL High <0.10 [facility] Comment on above: Order Comment: Speci men Type: BLOOD SPECIMENOrdering Facility: [facility] Address: [address] [place] [address] Performed By: #### 5 7021-8 ####[facility]ORATORYCLIA [id number] [address] [place] Immature granulocytes/100 WBC (Bld) 1.1 % Normal [facility] Comment on above: Order Comment: Speci men Type: BLOOD SPECIMENOrdering Facility: [facility] Address: [address] [place] [address] Performed By: #### 5 7021-8 ####[facility]ORATORYCLIA [id number] [address] [place] Lymphocytes (Bld) [#/Vol] 1.53 10*3/uL Normal 1.00-4.00 [facility] Comment on above: Order Comment: Speci men Type: BLOOD SPECIMENOrdering Facility: [facility] Address: [address] [place] [address] Performed By: #### 5 7021-8 ####[facility]ORATORYCLIA [id number] [address] [place] Lymphocytes/100 WBC (Bld) 9.7 % Normal [facility] Comment on above: Order Comment: Speci men Type: BLOOD SPECIMENOrdering Facility: [facility] Address: [address] [place] [address] Performed By: #### 5 7021-8 ####[facility] LABORATORYCLIA [id number] [address] STATES [facility] MCH (RBC) [Entitic mass] 30.9 pg Normal 26.0-34.0 [facility] Comment on above: Order Comment: Speci men Type: BLOOD SPECIMENOrdering Facility: [facility] Address: [address] [place] [address] Performed By: #### 5 7021-8 ####[facility]ORATORYCLIA [id number] [address] [place] MCHC (RBC) [Mass/Vol] 32.3 g/dL Normal 30.5-36.0 [facility] Comment on above: Order Comment: Speci men Type: BLOOD SPECIMENOrdering Facility: [facility] Address: [address] [place] [address] Performed By: #### 5 7021-8 ####[facility]ORATORYCLIA [id number] [address] STATES OF [facility] MCV (RBC) [Entitic vol] 95.9 fL Normal 80.0-100.0 [facility] Comment on above: Order Comment: Speci men Type: BLOOD SPECIMENOrdering Facility: [facility] Address: [address] [place] [address] Performed By: #### 5 7021-8 ####[facility]ORATORYCLIA [id number] [address] [place] Monocytes (Bld) [#/Vol] 1.22 10*3/uL High <0.87 [facility] Comment on above: Order Comment: Speci men Type: BLOOD SPECIMENOrdering Facility: [facility] Address: [address] [place] [address] Performed By: #### 5 7021-8 ####[facility]ORATORYCLIA [id number] [address] Monocytes/100 WBC (Bld) 7.7 % Normal [facility] Comment on above: Order Comment: Speci men Type: BLOOD SPECIMENOrdering Facility: [facility] Address: [address] [place] [address] Performed By: #### 5 7021-8 ####[facility]ORATORYCLIA [id number] [address] [place] Neutrophils (Bld) [#/Vol] 12.51 10*3/uL High 1.45-7.50 [facility] Comment on above: Order Comment: Speci men Type: BLOOD SPECIMENOrdering Facility: [facility] Address: [address] [place] [address] Performed By: #### 5 7021-8 ####[facility]ORATORYCLIA [id number] [address] Neutrophils/100 WBC (Bld) 79.0 % Normal [facility] Comment on above: Order Comment: Speci men Type: BLOOD SPECIMENOrdering Facility: [facility] Address: [address] [place] [address] Performed By: #### 5 7021-8 ####[facility] LABORATORYCLIA [id number] [address] [place] Nucleated RBC (Bld) [#/Vol] 10*3/uL Normal <0.01 [facility] Comment on above: Order Comment: Speci men Type: BLOOD SPECIMENOrdering Facility: [facility] Address: [address] [place] [address] Performed By: #### 5 7021-8 ####[facility] LABORATORYCLIA [id number] [address] OF [place] Nucleated RBC/100 WBC (Bld) [Ratio] 0.0 /100 WBC Normal [facility] Comment on above: Order Comment: Speci men Type: BLOOD SPECIMENOrdering Facility: [facility] Address: [address] [place] [address] Performed By: #### 5 7021-8 ####[facility]ORATORYCLIA [id number] [address] [place] Platelet mean volume (Bld) [Entitic vol] 9.0 fL Normal 9.0-12.7 [facility] Comment on above: Order Comment: Speci men Type: BLOOD SPECIMENOrdering Facility: [facility] Address: [address] [place] [address] Performed By: #### 5 7021-8 ####[facility] LABORATORYCLIA [id number] [address] OF [facility] Platelets (Bld) [#/Vol] 438 10*3/uL High 150-400 [facility] Comment on above: Order Comment: Speci men Type: BLOOD SPECIMENOrdering Facility: [facility] Address: [address] [place] [address] Performed By: #### 5 7021-8 ####[facility] LABORATORYCLIA [id number] [address] STATES OF [facility] RBC (Bld) [#/Vol] 3.62 10*6/uL Low 3.90-5.20 [facility] Comment on above: Order Comment: Speci men Type: BLOOD SPECIMENOrdering Facility: [facility] Address: [address] [place] [address] Performed By: #### 5 7021-8 ####[facility] LABORATORYCLIA [id number] [address] WBC (Bld) [#/Vol] 15.84 10*3/uL High 3.70-11.00 [facility] Comment on above: Order Comment: Speci men Type: BLOOD SPECIMENOrdering Facility: [facility] Address: [address] [place] [address] Performed By: #### 5 7021-8 ####[facility] LABORATORYCLIA [id number] [address] [place] ABD/PEL WO IVCONon 2023 CT ABD/PEL WO IVCON Normal [facility] ED NOTEon 01-31-2024 ED NOTE HNO ID: [id number] Author: SANDRA QUINTEROS RN Service: Emergency Medicine Author Type: Registered Nurse Type: ED Notes Filed: 01/31/2024 22:21 Note Text: Called CT and US at this time. Normal [facility] ED PROV NOTEon 01-31-2024 ED PROV NOTE Normal [facility] ED PROV NOTE Normal [facility] ED PROV NOTE Normal [facility] ED Triage Noteon 01-31-2024 ED Triage Note Normal [facility] US KIDNEY/BLADDERon 01-31-20 24 US KIDNEY/BLADDER Normal [facility] BRIEF OP NOTon 01-13-2024 BRIEF OP NOT Normal [facility] HISTORY PHYSICALon HISTORY PHYSICAL Normal [facility] IR EXCHANGE NEPH TUBEon 01-02 IR EXCHANGE NEPH TUBE Normal [facility] Guidance for exchange of nep hrostomy tube of Kidneyon 11-21-2023 IMPRESSION: UNEVENTFUL EXCHANGE OF GENITOURINARY CATHETER(S) PLAN: Catheter may be allowed to drain passively into bag until next catheter exchange. Patient may return in 6-8 weeks for routine exchange. Attestation Signer name: Devan Husain MD I attest that I was present for the entire procedure. I reviewed the stored images and agree with the report as written. Manipulative Therapy Specialist: PSCB Transcribe Date/Time: Nov 21 2023 3:16P Dictated by : DEVAN HUSAIN MD This examination was interpreted and the report reviewed and electronically signed by: DEVAN HUSAIN MD on Nov 21 2023 3:24PM EST [facility] * * *Final Report* * * DATE OF EXAM: Nov 21 2023 8:39AM AKA [id number] - IR EXCHANGE NEPH TUBE / PROCEDURE REASON: hydro * * * * Physician Interpretation * * * * PROCEDURE: GENITOURINARY CATHETER EXCHANGE Procedural Personnel Attending physician(s): Devan Husain M.D. Fellow physician(s): None Resident physician(s): None Advanced practice provider(s): None Medical Student(s): None Pre-procedure diagnosis: Chronic, indwelling left nephrostomy tube for routine exchange Post-procedure diagnosis: Same Indication: Ureteral obstruction Additional clinical history: None PROCEDURE SUMMARY - Target organ: Unilateral [place] kidney - Antegrade nephrostogram(s) via the existing access - Nephrostomy tube exchange - Additional procedure(s): None PROCEDURE DETAILS: Pre-procedure Consent: Risks, benefits, treatment options, potential complications and personnel to be involved were discussed (including the risks of radiation exposure, contrast and anesthesia administration, and any equipment needed for the procedure to ensure best possible outcome) with the patient and all questions were answered and consent was obtained prior to procedure. Premedicated for contrast allergy: n/a Transfusion of blood products: No Medication reconciliation: The patient's medications and allergies were reviewed in the electronic medical record and reconciled to the proposed procedure/treatment. Tish-procedure discussion: The appropriate elements of the pre-procedure discussion, safety check list and sign-out were performed. Time out: A time out was performed immediately prior to procedure start with the nursing and interventional team, correctly identifying the name, date of , procedure, anatomy (including marking of site and side if applicable), patient position, procedure consent form, relevant diagnostic and radiology test results, antibiotic administration if applicable, safety precautions, and procedure-specific equipment needs. Start of procedure: 814 End of procedure: 824 Patient position: Prone Preparation: The site was prepared and draped using all elements of maximal sterile barrier technique including sterile gloves, sterile gown, cap, mask, large sterile sheet, hand hygiene and cutaneous antisepsis. Antibiotics: None Antibiotic infusion start time: N/A Prophylactic antibiotic administered: None Additional med: None Additional med: None Contrast Contrast agent: OMNIPAQUE 300 Contrast volume (mL): 10 Image Guidance: Fluoroscopic guidance. Radiation Dose FLUOROSCOPIC RADIATION SUMMARY: Plane A, Air Kerma: 12.0 mGy Dose Area Product (DAP): 220.3 mcGy-m2 Fluoro Time: 1:36 min:sec Radiation dose exceed 5 Gy: No If radiation dose exceeded 5 Gy, was counseling and instructional brochure provided: N/A Anesthesia/sedation Level of anesthesia/sedation: Moderate sedation (conscious sedation) Anesthesia/sedation administered by: Independent trained observer under attending supervision with continuous monitoring of the patient?s level of consciousness and physiologic status Total intra-service sedation time (minutes): 10 Local anesthesia: 1 % lidocaine Left genitourinary catheter exchange Local anesthesia was administered. Initial nephrostogram performed. A wire was placed through the existing tube and it was removed. The new tube was advanced over the wire and position was confirmed with contrast injection. Pre-existing genitourinary catheter: 10 F [employer] nephrostomy Genitourinary catheter(s) placed: 10 F [employer] nephrostomy Findings: No hydronephrosis or filling defect External catheter securement: Non-absorbable suture Additional genitourinary system intervention Genitourinary intervention: None Location of intervention: Not applicable Device used: Not applicable Description of intervention: Not applicable Post-intervention findings: Not applicable Additional Details Additional description of procedure: None Equipment details: None Estimated blood loss (mL): Less than 10 Number and Type of Removed Specimens: 0: N/A Standardized report: [email or web address] Complications There were no immediate complications and no other complications. Conclusion The patient was comfortable and was transferred to the recovery room in stable condition. The procedure was performed by the: attending radiologist, without an sourcing assistant. The attending radiologist performed the following procedural activities: [facility] Provider, [facility] - 11/21/2023 * * *Final Report* * * DATE OF EXAM: Nov 21 2023 8:39AM ISACC 0777 - IR EXCHANGE NEPH TUBE / PROCEDURE REASON: hydro * * * * Physician Interpretation * * * * PROCEDURE: GENITOURINARY CATHETER EXCHANGE Procedural Personnel Attending physician(s): Devan Husain M.D. Fellow physician(s): None Resident physician(s): None Advanced practice provider(s): None Medical Student(s): None Pre-procedure diagnosis: Chronic, indwelling left nephrostomy tube for routine exchange Post-procedure diagnosis: Same Indication: Ureteral obstruction Additional clinical history: None PROCEDURE SUMMARY - Target organ: Unilateral [place] kidney - Antegrade nephrostogram(s) via the existing access - Nephrostomy tube exchange - Additional procedure(s): None PROCEDURE DETAILS: Pre-procedure Consent: Risks, benefits, treatment options, potential complications and personnel to be involved were discussed (including the risks of radiation exposure, contrast and anesthesia administration, and any equipment needed for the procedure to ensure best possible outcome) with the patient and all questions were answered and consent was obtained prior to procedure. Premedicated for contrast allergy: n/a Transfusion of blood products: No Medication reconciliation: The patient's medications and allergies were reviewed in the electronic medical record and reconciled to the proposed procedure/treatment. Tish-procedure discussion: The appropriate elements of the pre-procedure discussion, safety check list and sign-out were performed. Time out: A time out was performed immediately prior to procedure start with the nursing and interventional team, correctly identifying the name, date of , procedure, anatomy (including marking of site and side if applicable), patient position, procedure consent form, relevant diagnostic and radiology test results, antibiotic administration if applicable, safety precautions, and procedure-specific equipment needs. Start of procedure: 814 End of procedure: 824 Patient position: Prone Preparation: The site was prepared and draped using all elements of maximal sterile barrier technique including sterile gloves, sterile gown, cap, mask, large sterile sheet, hand hygiene and cutaneous antisepsis. Antibiotics: None Antibiotic infusion start time: N/A Prophylactic antibiotic administered: None Additional med: None Additional med: None Contrast Contrast agent: OMNIPAQUE 300 Contrast volume (mL): 10 Image Guidance: Fluoroscopic guidance. Radiation Dose FLUOROSCOPIC RADIATION SUMMARY: Plane A, Air Kerma: 12.0 mGy Dose Area Product (DAP): 220.3 mcGy-m2 Fluoro Time: 1:36 min:sec Radiation dose exceed 5 Gy: No If radiation dose exceeded 5 Gy, was counseling and instructional brochure provided: N/A Anesthesia/sedation Level of anesthesia/sedation: Moderate sedation (conscious sedation) Anesthesia/sedation administered by: Independent trained observer under attending supervision with continuous monitoring of the patient?s level of consciousness and physiologic status Total intra-service sedation time (minutes): 10 Local anesthesia: 1 % lidocaine Left genitourinary catheter exchange Local anesthesia was administered. Initial nephrostogram performed. A wire was placed through the existing tube and it was removed. The new tube was advanced over the wire and position was confirmed with contrast injection. Pre-existing genitourinary catheter: 10 F [employer] nephrostomy Genitourinary catheter(s) placed: 10 F [employer] nephrostomy Findings: No hydronephrosis or filling defect External catheter securement: Non-absorbable suture Additional genitourinary system intervention Genitourinary intervention: None Location of intervention: Not applicable Device used: Not applicable Description of intervention: Not applicable Post-intervention findings: Not applicable Additional Details Additional description of procedure: None Equipment details: None Estimated blood loss (mL): Less than 10 Number and Type of Removed Specimens: 0: N/A Standardized report: [email or web address] Complications There were no immediate complications and no other complications. Conclusion The patient was comfortable and was transferred to the recovery room in stable condition. The procedure was performed by the: attending radiologist, without an sourcing assistant. The attending radiologist performed the following procedural activities: Entire procedure IMPRESSION IMPRESSION: UNEVENTFUL EXCHANGE OF GENITOURINARY CATHETER(S) PLAN: Catheter may be allowed to drain passively into bag until next catheter exchange. Patient may (more content not included)... [facility] Radiology Study observation (narrative) [facility] Guidance for exchange of nep hrostomy tube of KidneyOrdered By: [facility] Provider on 11-21-2023 [facility] MG Breast Screeningon 2023 IMPRESSION: NEGATIVE There is no mammographic evidence of malignancy. A 1 year screening mammogram is recommended. Yvette Penny M.D., jr/dalila:08/30/2023 06:07:49 Photography [employer] Print[employer] Curator(s): Fabi Smith)(M), [facility] [place] letter sent: Normal over 40 Mammogram BI-RADS: 1 Negative Multiple national specialty organizations have released breast cancer screening guidelines for women at average risk for developing breast cancer - guidelines that are based on both evidence and opinion, yet differ on when to start and how often to screen for breast cancer. With representation from Breast Imaging, Internal Medicine, Women's Health, Family Medicine, and Medical/Surgical Oncology, the [facility] has carefully reviewed the data and reached the following consensus: 1) All women should engage in shared decision-making with their providers to decide when to start and how often to screen; 2) All women should have the opportunity to start screening mammography at age 40; 3) For women ages 45-55, we recommend annual screening mammograms; 4) For women ages 55 and over, we support both the transition from an annual to a biennial interval if this aligns more with patient's values and preferences, or continuation with annual screening; 5) All women should discuss with their providers when to stop screening mammograms. Manipulative Therapy Specialist: Dalila Transcribe Date/Time: Aug 28 2023 1:08P Dictated by : YVETTE PENNY MD This examination was interpreted and the report reviewed and electronically signed by: YVETTE PENNY MD on Aug 30 2023 6:07AM EST [facility] * * *Final Report* * * DATE OF EXAM: Aug 28 2023 1:29PM [facility] S[facility]EN[facility] / PROCEDURE REASON: SCREENING * * * * Physician Interpretation * * * * #[id number] - CRYSTAL SCREENING BILATERAL DIGITAL SCREENING MAMMOGRAM WITH CAD: 08/28/2023 HISTORY: Screening / Screening Mammogram-Patient reports NO symptoms. RESULT: TECHNIQUE: The study was acquired using full field digital technology and interpreted from soft copy. Current study was also evaluated with a Computer Aided Detection (CAD). Comparison is made to exams dated: 06/13/2022 mammogram, 12/07/2020 mammogram, and 02/11/2019 mammogram - [facility] [place]. There are scattered areas of fibroglandular density. No significant masses, calcifications, or other findings are seen in either breast. There has been no significant interval change. [facility] Provider, [facility]/30/2023 * * *Final Report* * * DATE OF EXAM: Aug 28 2023 1:29PM [facility] 0581 - [facility] SCREENING / PROCEDURE REASON: SCREENING * * * * Physician Interpretation * * * * #[id number] - CRYSTAL SCREENING BILATERAL DIGITAL SCREENING MAMMOGRAM WITH CAD: 08/28/2023 HISTORY: Screening / Screening Mammogram-Patient reports NO symptoms. RESULT: TECHNIQUE: The study was acquired using full field digital technology and interpreted from soft copy. Current study was also evaluated with a Computer Aided Detection (CAD). Comparison is made to exams dated: 06/13/2022 mammogram, 12/07/2020 mammogram, and 02/11/2019 mammogram - [facility] [place]. There are scattered areas of fibroglandular density. No significant masses, calcifications, or other findings are seen in either breast. There has been no significant interval change. IMPRESSION IMPRESSION: NEGATIVE There is no mammographic evidence of malignancy. A 1 year screening mammogram is recommended. Yvette Penny M.D., jr/dalila:08/30/2023 06:07:49 [employer] Curator(s): Jesus Manuel Smith(Enmanuel)(M), [facility] [place] letter sent: Normal over 40 Mammogram BI-RADS: 1 Negative Multiple national specialty organizations have released breast cancer screening guidelines for women at average risk for developing breast cancer - guidelines that are based on both evidence and opinion, yet differ on when to start and how often to screen for breast cancer. With representation from Breast Imaging, Internal Medicine, Women's Health, Family Medicine, and Medical/Surgical Oncology, the [facility] has carefully reviewed the data and reached the following consensus: 1) All women should engage in shared decision-making with their providers to decide when to start and how often to screen; 2) All women should have the opportunity to start screening mammography at age 40; 3) For women ages 45-55, we recommend annual screening mammograms; 4) For women ages 55 and over, we support both the transition from an annual to a biennial interval if this aligns more with patient's values and preferences, or continuation with annual screening; 5) All women should discuss with their providers when to stop screening mammograms. Manipulative Therapy Specialist: Dalila Transcribe Date/Time: Aug 28 2023 1:08P Dictated by : YVETTE PENNY MD This examination was interpreted and the report reviewed and electronically signed by: YVETTE PENNY MD on Aug 30 2023 6:07AM EST [facility] Breast ScreeningOrdered B y: [facility] Provider on 08-30-2023 [facility] Breast Screeningon 2023 Radiology Study observation (narrative) [facility] Breast Screeningon 2022 IMPRESSION: NEGATIVE There is no mammographic evidence of malignancy. A 1 year screening mammogram is recommended. Joseph cruz/dalila:06/14/2022 15:43:48 Photography [employer] Print[employer] Curator(s): Jesus Manuel Urban (Enmanuel)(M), [facility] letter sent: Normal over 40 Mammogram BI-RADS: 1 Negative Multiple national specialty organizations have released breast cancer screening guidelines for women at average risk for developing breast cancer - guidelines that are based on both evidence and opinion, yet differ on when to start and how often to screen for breast cancer. With representation from Breast Imaging, Internal Medicine, Women's Health, Family Medicine, and Medical/Surgical Oncology, the [facility] has carefully reviewed the data and reached the following consensus: 1) All women should engage in shared decision-making with their providers to decide when to start and how often to screen; 2) All women should have the opportunity to start screening mammography at age 40; 3) For women ages 45-55, we recommend annual screening mammograms; 4) For women ages 55 and over, we support both the transition from an annual to a biennial interval if this aligns more with patient's values and preferences, or continuation with annual screening; 5) All women should discuss with their providers when to stop screening mammograms. Manipulative Therapy Specialist: Dalila Transcribe Date/Time: Jun 13 2022 11:21A Dictated by : JOSEPH SAPP MD This examination was interpreted and the report reviewed and electronically signed by: JOSEPH SAPP MD on Jun 14 2022 3:43PM EST [facility] * * *Final Report* * * DATE OF EXAM: Jun 13 2022 11:30AM AT 0581 - [facility] SCREENING / PROCEDURE REASON: SCREENING * * * * Physician Interpretation * * * * #[id number] - [facility] SCREENING BILATERAL DIGITAL SCREENING MAMMOGRAM WITH CAD: 06/13/2022 HISTORY: Screening / Screening Mammogram-Patient reports NO symptoms. RESULT: TECHNIQUE: The study was acquired using full field digital technology and interpreted from soft copy. Current study was also evaluated with a Computer Aided Detection (CAD). Comparison is made to exams dated: 12/07/2020 mammogram, 02/11/2019 mammogram, and 02/13/2018 mammogram - [facility] [place]. There are scattered fibroglandular elements in both breasts. No significant masses, calcifications, or other findings are seen in either breast. There has been no significant interval change. [facility] Provider, Ccsalma Mars Coffeen - 06/14/2022 * * *Final Report* * * DATE OF EXAM: Jun 13 2022 11:30AM ATW 0581 - [facility] SCREENING / PROCEDURE REASON: SCREENING * * * * Physician Interpretation * * * * #[id number] - [facility] SCREENING BILATERAL DIGITAL SCREENING MAMMOGRAM WITH CAD: 06/13/2022 HISTORY: Screening / Screening Mammogram-Patient reports NO symptoms. RESULT: TECHNIQUE: The study was acquired using full field digital technology and interpreted from soft copy. Current study was also evaluated with a Computer Aided Detection (CAD). Comparison is made to exams dated: 12/07/2020 mammogram, 02/11/2019 mammogram, and 02/13/2018 mammogram - [facility] [place]. There are scattered fibroglandular elements in both breasts. No significant masses, calcifications, or other findings are seen in either breast. There has been no significant interval change. IMPRESSION IMPRESSION: NEGATIVE There is no mammographic evidence of malignancy. A 1 year screening mammogram is recommended. Joseph cruz/penrad:06/14/2022 15:43:48 [employer] Print[employer] Curator(s): Jeuss Manuel Urban (Enmanuel)(M), [facility] [place] letter sent: Normal over 40 Mammogram BI-RADS: 1 Negative Multiple national specialty organizations have released breast cancer screening guidelines for women at average risk for developing breast cancer - guidelines that are based on both evidence and opinion, yet differ on when to start and how often to screen for breast cancer. With representation from Breast Imaging, Internal Medicine, Women's Health, Family Medicine, and Medical/Surgical Oncology, the [facility] has carefully reviewed the data and reached the following consensus: 1) All women should engage in shared decision-making with their providers to decide when to start and how often to screen; 2) All women should have the opportunity to start screening mammography at age 40; 3) For women ages 45-55, we recommend annual screening mammograms; 4) For women ages 55 and over, we support both the transition from an annual to a biennial interval if this aligns more with patient's values and preferences, or continuation with annual screening; 5) All women should discuss with their providers when to stop screening mammograms. Manipulative Therapy Specialist: Dalila Transcribe Date/Time: Jun 13 2022 11:21A Dictated by : JOSEPH SAPP MD This examination was interpreted and the report reviewed and electronically signed by: JOSEPH SAPP MD on Jun 14 2022 3:43PM EST [facility] MG Breast ScreeningOrdered B y: [facility] Provider [facility] 06-14-2022 [facility] [facility] MG Breast Screeningon 2022 Radiology Study observation (narrative) [facility] IR NEPH TUBE CHANGEon 2022 [facility] IR EXCHANGE NEPH TUBEon 05-04 IR EXCHANGE NEPH TUBE Final Report DATE OF EXAM: Jun 01 2020 9:00AM [facility] [id number] - IR EXCHANGE NEPH TUBE / PROCEDURE REASON: hydro Physician Interpretation EXAM TITLE: EXCHANGE OF LEFT PERCUTANEOUS NEPHROSTOMY DRAINAGE CATHETER WITH NEPHROSTOGRAM DATE: June 01, 2020 COMPARISON: Previous percutaneous nephrostomy exchange from March 15, 2020 CLINICAL INDICATION/HISTORY: The patient is a 64-year-old female with chronic distal left ureteral stenosis. The patient is scheduled for routine catheter exchange. The patient states that her catheter has been working well and easily flushes. TECHNIQUE: The patient's vital signs were monitored during the procedure by the trained independent radiology nurse observer. The patient was placed in a prone. The skin entrance site of each percutaneous nephrostomy drain was prepped and anesthetized. Contrast was injected into each tube and then using guidewire exchange and Seldinger technique the catheter was removed and a new 35 cm 8 Estonian Skater APDL locking pigtail drain was placed back into each renal collecting system. A final nephrostogram was performed. Each catheter was secured to the skin and re-bandaged. There were no apparent complications. 1 minutes and 6 seconds of fluoroscopy time was utilized during the procedure. The patient was then discharged from the radiology department. 1 set of fluoroscopic images were saved as well as 3 spot films. 10 cc of Omnipaque 300 was utilized for the entire study. Fluoroscopy Radiation dose: Integrated dose-area product (DAP) for this visit = 25 mGycm. FINDINGS: There continues to be long segment narrowing of the distal left ureter with contrast trickling into the bladder. The percutaneous nephrostomy catheter was in excellent position and the new catheter enters the lower pole calyx and the pigtail was formed in the left renal pelvis. No filling defects or other mucosal abnormalities are identified. IMPRESSION: Technically successful exchange of left percutaneous nephrostomy drainage catheter. There is a persistent distal left ureteral long segment narrowing. . Manipulative Therapy Specialist: SCOTTY Transcribe Date/Time: Jun 01 2020 10:17A Dictated by : JAMILA PALOMO MD This examination was interpreted and the report reviewed and electronically signed by: JAMILA PALOMO MD on Jun 01 2020 12:07PM EST Normal [facility] IR EXCHANGE NEPH TUBEon 03-04 IR EXCHANGE NEPH TUBE Final Report DATE OF EXAM: Mar 15 2020 1:54PM [facility] 0777 - IR EXCHANGE NEPH TUBE / PROCEDURE REASON: hydro Physician Interpretation PROCEDURE: NEPHROSTOGRAM WITH PERCUTANEOUS NEPHROSTOMY TUBE EXCHANGE DATE: 03/15/2020 1:54 PM INDICATION: Cervical cancer and left ureteral destruction, status post percutaneous left nephrostomy tube placement. Patient reports diminished output and leakage around indwelling left nephrostomy tube. ENCOUNTER: Initial COMPARISON: Images from percutaneous left nephrostomy tube exchange performed on 03/09/2020. TECHNIQUE/FINDINGS: The procedure was performed in the VIR Suite following informed consent and a Time Out. Informed consent was previously obtained from the patient. The patient was evaluated for the safety and appropriateness of conscious sedation and the Moderate Sedation Record was completed. The patient was sedated with intravenous Fentanyl and Versed administered by the radiology nurses. Please refer to nursing notes for medication dosages. The patient's vital signs were monitored during the procedure by the radiology nurses. Intravenous ciprofloxacin was given for antibiotic prophylaxis. Total intraservice time (monitoring for moderate sedation) was 30 minutes. Patient monitoring: Supervised observer The skin site of the indwelling percutaneous nephrostomy tube was prepped and draped using all elements of maximal sterile barrier technique (cap, mask, sterile gown, sterile gloves, a large sterile sheet, hand hygiene and cutaneous antisepsis). Nephrostogram was performed via the indwelling nephrostomy tube assess for positioning and opacification of the renal collecting system. The nephrostomy tube was noted to be mostly outside the collecting system, distal tip within inferior pole calyx. A stiff Glidewire was advanced via the nephrostomy tube into the anticipated region of the left renal collecting system. Dilation was performed and attempt was made to place a 10 Estonian nephrostomy tube, however the tube buckled outside the renal collecting system. The tube was therefore removed and a combination of 5 Estonian angled 40 cm catheter and Glidewire were advanced via the skin tract into the left ureter. New 10 Estonian nephrostomy tube was placed with cope loop formed within the left renal pelvis. Contrast was injected to confirm appropriate positioning within the renal collecting system. Tube was then secured to the skin site with 2-0 suture. Patient tolerated the procedure well without immediate complication. Drain was placed to gravity bag. Fluoroscopic Radiation Summary: Fluoro time: 3:36 min:sec Plane A, Air Kerma: 23 mGy 7 fluoroscopic images were obtained and placed in the PACS system. FINDINGS: Indwelling percutaneous nephrostomy tube partially withdrawn outside of the left urinary collecting system. Successful exchange/upsize of indwelling percutaneous nephrostomy tube. New 10 Estonian percutaneous nephrostomy tube was placed with cope loop formed within the left renal pelvis. Small filling defects within the left renal pelvis following percutaneous nephrostomy tube replacement, likely representing small amount of blood products. IMPRESSION: Successful exchange/upsize of percutaneous nephrostomy tube as described above. New 10 Estonian percutaneous nephrostomy tube placed with cope loop formed within the left renal pelvis. Plan for routine exchange in 8-12 weeks. Manipulative Therapy Specialist: SCOTTY Transcribe Date/Time: Mar 15 2020 5:12P Dictated by : YESI YANCEY MD This examination was interpreted and the report reviewed and electronically signed by: YESI YANCEY MD on Mar 15 2020 5:19PM EST Normal [facility] IR EXCHANGE NEPH TUBEon -0 IR EXCHANGE NEPH TUBE Final Report DATE OF EXAM: Mar 09 2020 8:36AM [facility] 0777 - IR EXCHANGE NEPH TUBE / PROCEDURE REASON: hydro Physician Interpretation PROCEDURE: GENITOURINARY CATHETER EXCHANGE Procedural Personnel Attending physician(s): Kwesi Craig MD Fellow physician(s): None Resident physician(s): None Advanced practice provider(s): None Medical Student(s): None Pre-procedure diagnosis: Hydronephrosis Post-procedure diagnosis: Same Indication: Routine scheduled exchange Additional clinical history: None PROCEDURE SUMMARY - Target organ: Unilateral [place] kidney - Antegrade nephrostogram(s) via the existing access - Nephrostomy tube exchange - Additional procedure(s): None PROCEDURE DETAILS: Pre-procedure Consent: Risks, benefits, treatment options, potential complications and personnel to be involved were discussed (including the risks of radiation exposure, contrast and anesthesia administration, and any equipment needed for the procedure to ensure best possible outcome) with the patient and all questions were answered and consent was obtained prior to procedure. Premedicated for contrast allergy: n/a Transfusion of blood products: No Medication reconciliation: The patient's medications and allergies were reviewed in the electronic medical record and reconciled to the proposed procedure/treatment. Tish-procedure discussion: The appropriate elements of the pre-procedure discussion, safety check list and sign-out were performed. Time out: A time out was performed immediately prior to procedure start with the nursing and interventional team, correctly identifying the name, date of , procedure, anatomy (including marking of site and side if applicable), patient position, procedure consent form, relevant diagnostic and radiology test results, antibiotic administration if applicable, safety precautions, and procedure-specific equipment needs. Start of procedure: 8:27 AM End of procedure: 8:33 AM Patient position: Prone Preparation: The site was prepared and draped using all elements of maximal sterile barrier technique including sterile gloves, sterile gown, cap, mask, large sterile sheet, hand hygiene and cutaneous antisepsis. Antibiotics: None Antibiotic infusion start time: N/A Prophylactic antibiotic administered: None Contrast Contrast agent: OMNIPAQUE 300 Contrast volume (mL): 8 Image Guidance: Fluoroscopic guidance. Radiation Dose FLUOROSCOPIC RADIATION SUMMARY: Plane A, Air Kerma: 8.0 mGy Dose Area Product (DAP): 0.0 mGycm2 Fluoro Time: 1:06 min:sec Radiation dose exceed 5 Gy: No If radiation dose exceeded 5 Gy, was counseling and instructional brochure provided: N/A Anesthesia/sedation Level of anesthesia/sedation: Moderate sedation (conscious sedation) Anesthesia/sedation administered by: Independent trained observer under attending supervision with continuous monitoring of the patient?s level of consciousness and physiologic status Total intra-service sedation time (minutes): 7 Local anesthesia: 2 % lidocaine Left genitourinary catheter exchange Local anesthesia was administered. Initial nephrostogram was performed. A wire was placed through the existing tube and it was removed. The new tube was advanced over the wire and position was confirmed with contrast injection. 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 External catheter securement: Non-absorbable suture Additional Details Additional description of procedure: None Equipment details: None Estimated blood loss (mL): Less than 10 Number and Type of Removed Specimens: 0: N/A Standardized report: [email or web address] Complications There were no immediate complications and no other complications. Conclusion The patient was comfortable and was transferred to the recovery room in stable condition. The procedure was performed by the: attending radiologist, without an sourcing assistant. The attending radiologist performed the following procedural activities: Entire procedure IMPRESSION: UNEVENTFUL EXCHANGE OF LEFT NEPHROSTOMY CATHETER, WITH PLACEMENT OF AN 8 [place]STA RICAN SKATER CATHETER. PLAN: Catheter may be allowed to drain passively into bag until next catheter exchange. Patient may return in 8 weeks for routine exchange. Attestation Signer name: Kwesi Craig MD I attest that I was present for the entire procedure. I reviewed the stored images and agree with the report as written. Manipulative Therapy Specialist[facility] Transcribe Date/Time: Mar 09 2020 10:12A Dictated by : KWESI CRAIG MD This examination was interpreted and the report reviewed and electronically signed by: KWESI CRAIG MD on Mar (more content not included)... Normal [facility] CURon 07-26-2018 CUR . MICRO - Microbiology PROCEDURE: Urine Culture [*1] SOURCE: Urine BODY SITE: COLLECTED DATE/TIME: 07/25/2018 10:08 EDT RECEIVED DATE/TIME: 07/25/2018 16:07 EDT START DATE/TIME: 07/25/2018 16:07 EDT FREE TEXT SOURCE: FINAL REPORTS Final Report [] Verified Date/Time/Personnel: 07/26/2018 15:17 EDT >100,000 organisms per mL Mixed without predominant isolate(s). Sensitivity Testing not indicated. Probably contamination. Repeat culture suggested. Performing Locations *1: This test was performed at: [facility], [address] [place] [address], [id number] , [facility] ([place]) Comment on above: Performed By: #### C UR #### [place] [id number] Vital Signs Date Time Vital Sign Value Performing Clinician Quincy darden 02-13-2024 09:50-0500 Body height 165.1 cm Standish Bharathi DO Work Phone: [facility] 02-13-2024 09:50-0500 Body temperature 97.5 [degF] Madisyn Bharathi DO Work Phone: [facility] 02-13-2024 09:50-0500 Diastolic blood pressure 64 mm[Hg] Madisyn Bharathi DO Work Phone: [facility] 02-13-2024 09:50-0500 Heart rate 91 /min Madisyn Bharathi DO Work Phone: [facility] 02-13-2024 09:50-0500 SaO2% (BldA) [Mass fraction] 98 % Madisyn Bharathi DO Work Phone: [facility] 02-13-2024 09:50-0500 Systolic blood pressure 130 mm[Hg] Madisyn Bharathi DO Work Phone: [facility] 11-21-2023 08:45-0400 Diastolic blood pressure 88 mm[Hg] Devan Husain MD Work Phone: [facility] 11-21-2023 08:45-0400 SaO2% (BldA) [Mass fraction] 99 % Devan Husain MD Work Phone: [facility] 11-21-2023 08:45-0400 Systolic blood pressure 142 mm[Hg] Devan Husain MD Work Phone: [facility] 11-21-2023 08:40-0400 Heart rate 87 /min Devan [place] MD Work Phone: [facility] 11-21-2023 08:40-0400 Respiratory rate 16 /min Devan Husain MD Work Phone: [facility] 11-21-2023 07:29-0400 Body height 165.1 cm Devan Husain MD Work Phone: [facility] 11-21-2023 07:29-0400 Body mass index (BMI) [Ratio] 25.29 kg/m2 Devan Husain MD Work Phone: [facility] 11-21-2023 07:29-0400 Body weight 68.95 kg Devan Husain MD Work Phone: [facility] 08-22-2023 09:53-0400 Body temperature 97.81 [degF] Madisyn Bharathi DO Work Phone: [facility] 08-22-2023 09:53-0400 Diastolic blood pressure 80 mm[Hg] Standish Bharathi DO Work Phone: [facility] 08-22-2023 09:53-0400 Heart rate 98 /min Madisyn Bharathi DO Work Phone: [facility] 08-22-2023 09:53-0400 SaO2% (BldA) [Mass fraction] 98 % Madisyn Bharathi DO Work Phone: [facility] 08-22-2023 09:53-0400 Systolic blood pressure 140 mm[Hg] Madisyn Bharathi DO Work Phone: [facility] 05-23-2022 08:45-0400 Diastolic blood pressure 77 mm[Hg] Kristen Forman MD Work Phone: [facility] 05-23-2022 08:45-0400 SaO2% (BldA) [Mass fraction] 100 % Kristen Forman MD Work Phone: [facility] 05-23-2022 08:45-0400 Systolic blood pressure 120 mm[Hg] Kristen Forman MD Work Phone: [facility] 05-23-2022 08:25-0400 Heart rate 100 /min Kristen Forman MD Work Phone: [facility] 05-23-2022 08:25-0400 Respiratory rate 14 /min Kristen Forman MD Work Phone: [facility] 01-17-2022 11:38-0500 Body height 165.1 cm Madisyn Bharathi DO Work Phone: [facility] 01-17-2022 11:38-0500 Body temperature 98.4 [degF] Madisyn Bharathi DO Work Phone: [facility] 01-17-2022 11:38-0500 Body weight 78.02 kg Madisyn Bharathi DO Work Phone: [facility] 01-17-2022 11:38-0500 Diastolic blood pressure 70 mm[Hg] Madisyn Bharathi DO Work Phone: [facility] 01-17-2022 11:38-0500 Heart rate 105 /min Madisyn Bharathi DO Work Phone: [facility] 01-17-2022 11:38-0500 Respiratory rate 20 /min Madisyn Bharathi DO Work Phone: [facility] 01-17-2022 11:38-0500 SaO2% (BldA) [Mass fraction] 97 % Standish Bharathi DO Work Phone: [facility] 01-17-2022 11:38-0500 Systolic blood pressure 132 mm[Hg] Standish Bharathi DO Work Phone: [facility] Encounters Encounter Date Encounter Type Care Provider Facility Start: 01-08-2025 ambulatory MADISYN GERAR D BHARATHI Facility:[facility] Start: 01-04-2025 End: 01-04-2025 ambulatory Marcela Ricci Facility:[facility] Start: 12-21-2024 ambulatory MADISYN GERAR D BHARATHI Facility:[facility] Start: 12-15-2024 End: 12-15-2024 ambulatory MADISYN TIKA BHARATHI Facility:[facility] Start: 12-08-2024 End: 12-08-2024 ambulatory MADISYN TIKA BHARATHI Facility:[facility] Start: 11-29-2024 End: 12-02-2024 ambulatory RAFI ZHENG Facility:[facility] Start: 11-10-2024 End: 11-10-2024 Social Work [facility] Comment on above: Financial difficulti es (Primary Dx) Start: 11-05-2024 End: 11-13-2024 Telephone encounter Standish Tika Mannrio DO Work Phone: [facility] [place] Start: 10-29-2024 End: 10-30-2024 Telephone encounter Madisyn Garvin DO Work Phone: [facility] [place] Comment on above: Patient Question Start: 10-19-2024 End: 10-19-2024 ambulatory MADISYN GARVIN Facility:[facility] Start: 09-29-2024 ambulatory MADISYN JULIUS GARVIN Facility:[facility] Start: 09-29-2024 End: 09-29-2024 Subsequent hospital visit by physician Screen Mammo [facility] Comment on above: Encounter for screen ing mammogram for malignant neoplasm of breast [Z12.31] Start: 08-26-2024 End: 08-26-2024 ambulatory MADISYN TIKA BHARATHI Facility:[facility] Start: 06-25-2024 End: 06-25-2024 ambulatory MADISYN TIKA BHARATHI Facility:[facility] Start: 06-22-2024 End: 06-22-2024 ambulatory [facility] Facility:[facility] Start: 04-29-2024 End: 04-29-2024 ambulatory MADISYN TIKA BHARATHI Facility:[facility] Start: 04-21-2024 End: 04-23-2024 Telephone encounter Standish Tika Mannrio DO Work Phone: [facility] [place] Comment on above: Orders (PT order for new prosthesis) Start: 04-09-2024 End: 04-09-2024 ambulatory MADISYN GARVIN Facility:[facility] Start: 03-11-2024 End: 03-11-2024 ambulatory MADISYN TIKA GARVIN Facility:[facility] Start: 02-13-2024 End: 02-13-2024 Patient encounter procedure Madisyn Garvin DO Work Phone: [facility] Comment on above: Nephrostomy tube dis placed (HCC) (Primary Dx); MANDEEP (generalized anxiety disorder); Cervical cancer, FIGO stage IIB (HCC); Allergic dermatitis; Hx of AKA (above knee amputation), right (HCC); BMI 22.0-22.9, adult Start: 02-13-2024 End: 02-13-2024 ambulatory MADISYN GARVIN Facility:[facility] Start: 02-10-2024 End: 02-10-2024 ambulatory Zeenat Hernández RN Work Phone: Nutritionalist Start: 02-10-2024 End: 02-10-2024 Telephone follow-up Zeenat Hernández RN Work Phone: Nutritionalist Comment on above: Transition Of Care ( TCM Follow Up Call) Weekly phone contact (Recurring) for Transitional Care Management Start: 02-06-2024 End: 02-06-2024 ambulatory Zeenat Hernández RN Work Phone: Nutritionalist Start: 02-06-2024 End: 02-06-2024 Home visit Zeenat Hernández RN Work Phone: Nutritionalist Comment on above: Transition Of Care ( Initial TCM Outreach) Initial phone contact for Transitional Care Management Start: 01-31-2024 End: 02-05-2024 Evaluation and management of [facility] Start: 01-02-2024 End: 01-02-2024 Telephone encounter Madisyn Garvin DO Work Phone: [facility] Comment on above: Orders (Need PT orde r reji ) Start: 11-21-2023 End: 11-21-2023 Subsequent hospital visit by physician Devan Husain MD Work Phone: [facility] Comment on above: Hydronephrosis, unsp ecified hydronephrosis type [N13.30] Start: 08-30-2023 Documentation procedure [facility]og [facility]lin [facility] Start: 08-30-2023 Letter encounter Mammography Coordinator [place] [facility] NOT LISTED Start: 08-28-2023 End: 08-28-2023 Subsequent hospital visit by physician Screen Mammo [facility] Comment on above: screening Start: 08-22-2023 End: 08-22-2023 Patient encounter procedure Madisyn Tika Garvin DO Work Phone: [facility] [place] Comment on above: Acute UTI (Primary D x); Recurrent UTI (urinary tract infection); Hyperlipidemia, mixed; Screening for thyroid disorder Start: 08-21-2023 Telephone encounter Madisyn Howard margaret Garvin DO Work Phone: [facility] [place] Comment on above: Nurse Triage Call Start: 01-09-2023 Orders Only Rosie Chaudhary RN [facility] Comment on above: Obstruction of left ureter (Primary Dx) Start: 06-14-2022 Documentation procedure Mammog elrin Coordinator [facility] Start: 06-14-2022 Letter encounter Mammography Coordinator [place] [facility] NOT LISTED Start: 06-13-2022 End: 06-13-2022 Subsequent hospital visit by physician Screen Mammo [facility] Comment on above: Screening Start: 05-23-2022 End: 05-23-2022 Subsequent hospital visit by physician Kristen Forman MD Work Phone: [facility] Comment on above: Hydronephrosis, unsp ecified hydronephrosis type [N13.30] Start: 02-19-2022 Telephone encounter Madisyn Howard margaret Garvin DO Work Phone: [facility] Comment on above: Results Start: 01-17-2022 End: 01-17-2022 Patient encounter procedure Madisyn Garvin DO Work Phone: [facility] [place] Comment on above: Hydronephrosis, unsp ecified hydronephrosis type (Primary Dx); Presence of right artificial leg; Nephrostomy tube displaced (HCC); History of cervical cancer; Screening for hyperlipidemia; Screening for thyroid disorder Start: 04-26-2021 Refill Wiley pedro MD Work Phone: Urology Comment on above: Refill Request Procedures Date Procedure Procedure Detail Performing Clinician Start: 11-21-2023 Change prq tube/drai nage cath w contrast rs&i Devan Husain MD Work Phone: Start: 08-28-2023 Screening mammograph y bi 2-view breast inc cad Ana Tristan MD Work Phone: Start: 06-13-2022 End: 06-13-2022 Mammography Ana Joiner ch, MD Work Phone: Start: 05-23-2022 Change prq tube/drai nage cath w contrast rs&i Wiley Monroe MD Work Phone: Start: 02-15-2022 Lipid 1996 panel - S elvin or Plasma Rosie Chaudhary RN Start: 12-07-2020 Mammography Wiley proctor Jr., MD Work Phone: H/O: colostomy Colostomy in place Plan of Treatment Date Care Activity Detail Author Start: 2029 RSV Vaccine (1 - 1-dose 75+ series) RSV Vaccine (1 - 1-dose 75+ series) [facility] Start: 02-15-2027 Lipid 1996 panel - Serum or Plasma Lipid Screening [facility] Start: 02-15-2027 Lipid panel Lipid Screening [facility] Start: 02-15-2027 LIPID SCREEN LIPID SCREEN [facility] Start: 02-04-2027 Diabetes Screening Diabetes Screening [facility] Start: 09-29-2025 Screening for malignant neoplasm of breast Mammogram Screening [facility] Start: 02-15-2025 DIABETES SCREEN DIABETES SCREEN [facility] Start: 02-15-2025 Diabetes Screening Diabetes Screening [facility] Start: 12-21-2024 End: 12-21-2024 Patient encounter procedure 12/21/2024 8:15 AM EDT Office Visit [facility] [address] [place] [address] Madisyn Garvin, DO [address] [place] [address] Follow up after seeing Nephrology [facility] Comment on above: Follow up after seeing Nephrology Start: 11-02-2024 Influenza vaccination Influenza Vaccine (#1) [facility] Start: 08-27-2024 Screening for malignant neoplasm of breast Mammogram Screening [facility] Start: 03-04-2024 Advance Directive Discussion Advance Directive Discussion [facility] Start: 03-04-2024 Medicare Advantage Annual Wellness Visit Medicare [facility] Annual Wellness Visit [facility] Start: 02-17-2024 End: 02-17-2024 Patient encounter procedure 02/17/2024 9:00 AM EST Office Visit [facility] [address] [place] [address] Madisyn Garvin, DO [address] [place] [id number] [facility] hospital f/u [facility] d/c 02/04 Nephrostomy tube displaced [facility] Comment on above: [facility] hospital f/u [facility] d/c 02/04 Nephrosto my tube displaced Start: 02-13-2024 End: 02-13-2024 Patient encounter procedure 02/13/2024 10:00 AM EST Office Visit [facility] [address] [place] [address] Madisyn Garvin, DO [address] [place] [address] SALINA koch [facility] d/c 02/04 [facility] [place] Comment on above: SALINA koch [facility] d/c 02/04 Start: 01-13-2024 End: 01-13-2024 Admission to same day surgery center 01/13/2024 8:00 AM EST - 01/13/2024 9:00 AM EST Surgery [facility] [address] [place] [address] [place] [address] [place] [id number] PTN EXCHANGE [facility] Comment on above: PTN EXCHANGE Start: 01-13-2024 End: 01-13-2024 Exchange nephrostomy catheter prq w/img gid rs&i [facility] EXCHANGE NEPHROSTOMY CATH, INCLUDING DIAGNOSTIC NEPHROSTOGRAM/URETEROGR AM WHEN PERFORMED,IMAGING GUIDANCE AND ALL ASSOCIATED RAD S&I Hydronephrosis, unspecified hydronephrosis type 01/13/2024 8:00 AM [facility] Start: 01-13-2024 Subsequent hospital visit by physician 01/13/2024 8:00 AM [facility] Encounter [facility] [address] [place] [address] [place] [address] [address] Hydronephrosis, unspecified hydronephrosis type [N13.30] [facility] Comment on above: Hydronephrosis, unspecified hydronephros is type [N13.30] Start: 11-21-2023 End: 11-21-2023 Admission to same day surgery center 11/21/2023 8:00 AM EDT - 11/21/2023 9:00 AM EDT Surgery [facility] [address] [place] [address] [place] [address] [id number] PTN EXCHANGE [facility] Comment on above: PTN EXCHANGE Start: 11-21-2023 End: 11-21-2023 Exchange nephrostomy catheter prq w/img gid rs&i [facility] EXCHANGE NEPHROSTOMY CATH, INCLUDING DIAGNOSTIC NEPHROSTOGRAM/URETEROGR AM WHEN PERFORMED,IMAGING GUIDANCE AND ALL ASSOCIATED RAD S&I Hydronephrosis, unspecified hydronephrosis type 11/21/2023 8:00 AM EDT [facility] Start: 11-21-2023 Subsequent hospital visit by physician 11/21/2023 8:00 AM EDT Hospital Encounter [facility] [address] [place] [address] [place] [address] [facility] , [address] [place] [address] Hydronephrosis, unspecified hydronephrosis type [N13.30] [facility] Comment on above: Hydronephrosis, unspecified hydronephros is type [N13.30] Start: 11-03-2023 Covid-19 Vaccine ( season) Covid-19 Vaccine ( season) [facility] Start: 11-03-2023 Covid-19 Vaccine ( season) Covid-19 Vaccine ( season) [facility] Start: 11-03-2023 Influenza vaccination [facility] Start: 08-30-2023 End: 08-30-2023 Patient encounter procedure 08/30/2023 8:30 AM EDT Office Visit [address] [address] [facility] [address] [place] [id number] concerned about Kidney infection [facility] Comment on above: concerned about Kidney infection Start: 08-28-2023 End: 08-28-2023 Patient encounter procedure 08/28/2023 1:00 PM EDT Appointment [facility] [address] [place] [id number] screening [facility] Comment on above: screening Start: 08-22-2023 End: 11-21-2023 Bacteria identified in Urine by Culture URINE CULTURE Microbiology Routine Recurrent UTI (urinary tract infection) Expected: 08/22/2023, Expires: 11/21/2023 [facility] Comment on above: Expected: 08/22/2023, Expires: 4 Start: 08-22-2023 End: 11-21-2023 CBC W Auto Differential panel - Blood COMPLETE BLOOD COUNT AND DIFFERENTIAL Lab Routine Hyperlipidemia, mixed Expected: 08/22/2023, Expires: 11/21/2023 [facility] Work Phone: Comment on above: Expected: 08/22/2023, Expires: Start: 08-22-2023 End: 11-21-2023 Comprehensive metabolic 2000 panel - Serum or Plasma COMPREHENSIVE METABOLIC PANEL Lab Routine Hyperlipidemia, mixed Expected: 08/22/2023, Expires: 11/21/2023 [facility] Comment on above: Expected: 08/22/2023, Expires: 4 Start: 08-22-2023 End: 11-21-2023 Lipid 1996 panel - Serum or Plasma LIPID PANEL BASIC Lab Routine Hyperlipidemia, mixed Expected: 08/22/2023, Expires: 11/21/2023 [facility] Comment on above: Expected: 08/22/2023, Expires: Start: 08-22-2023 End: 11-21-2023 Thyrotropin [Units/volume] in Serum or Plasma THYROID STIMULATING HORMONE Lab Routine Screening for thyroid disorder Expected: 08/22/2023, Expires: 11/21/2023 [facility] Comment on above: Expected: 08/22/2023, Expires: Start: 08-22-2023 End: 11-21-2023 Urinalysis complete panel - Urine [facility] Comment on above: Expected: 08/22/2023, Expires: 4 Start: 08-22-2023 End: 08-22-2023 Patient encounter procedure 08/22/2023 10:00 AM EDT Office Visit [facility] [place] [address] [place] [address] Madisyn Garvin DO [address] [place] [address] uti [facility] [place] Comment on above: uti Start: 06-14-2023 Mammography [facility] Start: 06-14-2023 Screening for malignant neoplasm of breast Mammogram Screening [facility] Start: 03-04-2023 Advance Directive Discussion Advance Directive Discussion [facility] Start: 03-04-2023 Behavioral Health Screening Behavioral Health Screening [facility] Start: 11-02-2022 Covid-19 Vaccine () Covid-19 Vaccine () [facility] Start: 11-02-2022 Influenza vaccination [facility] Start: 03-04-2022 ADVANCE DIRECTIVE DISCUSSION ADVANCE DIRECTIVE DISCUSSION [facility] Start: 03-04-2022 DEPRESSION ASSESSMENT DEPRESSION ASSESSMENT [facility] Start: 01-17-2022 End: 03-19-2022 CBC W Auto Differential panel - Blood CBC + DIFF Lab Routine Screening for hyperlipidemia Expected: 01/17/2022, Expires: 03/19/2022 [facility] Work Phone: Comment on above: Expected: 01/17/2022, Expires: 3 Start: 01-17-2022 End: 03-19-2022 Comprehensive metabolic 2000 panel - Serum or Plasma COMP METABOLIC PANEL Lab Routine Screening for hyperlipidemia Expected: 01/17/2022, Expires: 03/19/2022 [facility] Work Phone: Comment on above: Expected: 01/17/2022, Expires: 3 Start: 01-17-2022 End: 03-19-2022 Lipid 1996 panel - Serum or Plasma LIPID PANEL BASIC Lab Routine Screening for hyperlipidemia Expected: 01/17/2022, Expires: 03/19/2022 [facility] Work Phone: Comment on above: Expected: 01/17/2022, Expires: 3 Start: 01-17-2022 End: 03-19-2022 Thyrotropin [Units/volume] in Serum or Plasma TSH BLD Lab Routine Screening for thyroid disorder Expected: 01/17/2022, Expires: 03/19/2022 [facility] Work Phone: Comment on above: Expected: 01/17/2022, Expires: 3 Start: 01-17-2022 End: 03-19-2022 Urinalysis complete panel - Urine URINALYSIS, WITH MICROSCOPIC Lab Routine Screening for hyperlipidemia Expected: 01/17/2022, Expires: 03/19/2022 [facility] Work Phone: Comment on above: Expected: 01/17/2022, Expires: 3 Start: 12-07-2021 Mammography MAMMOGRAM [facility] Start: 11-18-2021 DIABETES SCREEN DIABETES SCREEN [facility] Start: 11-02-2021 Influenza vaccination INFLUENZA (#1) [facility] Start: 03-04-2021 ADVANCE DIRECTIVE DISCUSSION ADVANCE DIRECTIVE DISCUSSION [facility] Start: 03-04-2021 DEPRESSION ASSESSMENT DEPRESSION ASSESSMENT [facility] Start: 11-02-2020 Influenza vaccination INFLUENZA (#1) [facility] Start: 12-13-2019 BONE DENSITY BONE DENSITY [facility] Start: 12-13-2019 Bone Density Screening Bone Density Screening [facility] Start: 12-13-2019 Pneumococcal Vaccine: 65+ (1 - PCV) Pneumococcal Vaccine: 65+ (1 - PCV) [facility] Start: 12-13-2019 Pneumococcal Vaccine: 65+ (1 of 1 - PCV) Pneumococcal Vaccine: 65+ (1 of 1 - PCV) [facility] Start: 12-13-2019 PNEUMOCOCCAL: 65+ (1 - PCV) PNEUMOCOCCAL: 65+ (1 - PCV) [facility] Start: 12-13-2019 PNEUMOVAX AGE 65 AND OVER WITH 5YR LOOKBACK (#1) PNEUMOVAX AGE 65 AND OVER WITH 5YR LOOKBACK (#1) [facility] Start: 12-13-2019 Screening for osteoporosis Bone Density Screening [facility] Start: 2014 RSV Vaccine (1 - 1-dose 60+ series) RSV Vaccine (1 - 1-dose 60+ series) [facility] Start: 2004 Pneumococcal Vaccine: 50+ (1 of 1 - PCV) Pneumococcal Vaccine: 50+ (1 of 1 - PCV) [facility] Start: 2004 SHINGRIX VACCINE (1 of 2) SHINGRIX VACCINE (1 of 2) [facility] Start: 12-13-1999 COLOGUARD (FIT-DNA) COLOGUARD (FIT-DNA) [facility] Start: 12-13-1999 Colonoscopy COLONOSCOPY [facility] Start: 12-13-1999 COLORECTAL CANCER SCREENING COLORECTAL CANCER SCREENING [facility] Start: 12-13-[address] COLONOGRAPHY [facility] Start: 12-13-1999 FECAL OCCULT BLOOD FECAL OCCULT BLOOD [facility] Start: 12-13-1999 LIPID SCREEN LIPID SCREEN [facility] Start: 12-13-1999 Screening for malignant neoplasm of colon [facility] Start: 12-13-1999 SIGMOIDOSCOPY SIGMOIDOSCOPY [facility] Start: 1973 Urine microalbumin profile [facility] Start: 1972 Anxiety Screening Anxiety Screening [facility] Start: 1972 Depression Screening Depression Screening [facility] Start: 1972 HEPATITIS C SCREENING HEPATITIS C SCREENING [facility] Start: 1972 Hepatitis C screening Hepatitis C Screening [facility] Start: 1966 Adult depression screening assessment DEPRESSION SCREENING [facility] Start: 12-13-1959 COVID-19 VACCINE (1) COVID-19 VACCINE (1) [facility] Start: 06-13-1955 COVID-19 VACCINE (#1) COVID-19 VACCINE (#1) [facility] End: 09-29-2024 DBT Breast - bilateral screening [facility] Work Phone: Comment on above: ONCE for 1 Occurrences starting 09/30/19 until 09/29/2024 IR NEPH TUBE CHANGE IR NEPH TUBE CHANGE Radiology Routine Obstruction of left ureter Ordered: 01/09/2023 [facility] Work Phone: Comment on above: Ordered: 01/09/2023 [facility] Payers Date Payer Category Payer Self-pay 2018 Medicare [employer]NA MEDICARE HU[employer]NA MEDICARE PPO [id number] 2018-Present [id number] [place] [address] PPO [id number] 2018 Medicare HUMANA MEDICARE HU[employer]NA MEDICARE PPO [id number] 2018-Present [phone] [place], [place] [id number] PPO [id number] 2018 Medicare (Managed Care) RUIZ LYLE [id number] 2012 Medicare [id number] Unknown [id number] Unknown [id number] Unknown [id number] Social History Date Type Detail Facility Start: 11-15-2018 End: 01-17-2022 Tobacco smoking status NHIS Never smoked tobacco [facility] Start: 11-15-2018 End: 01-17-2022 Tobacco use and exposure Smokeless tobacco non-user [facility] Start: 03-12-2019 End: 02-13-2024 Alcohol intake Ex-drinker (finding) [facility] Start: 1955 Sex Assigned At Not on file [facility] Start: 01-12-2022 End: 01-22-2022 Exposure to SARS-CoV-2 (event) Not sure [facility] Start: 02-15-2022 End: 11-17-2022 History of Social function [facility] Start: 02-15-2022 End: 11-17-2022 Tobacco use panel [facility] Start: 02-03-2012 Adult Depression Screening Assessment 0 [facility] Has the [employer], [employer], oil, or water company threatened to shut off services in your home in past 12Mo No [facility] Work Phone: (I/We) worried lanre er (my/our) food would run out before (I/we) got money to buy more. Never true [facility] Work Phone: Start: 1955 Sex Assigned At Female W [facility] Functional Status Date Assessment Result Facility 02-05-2024 Are you deaf, or do you have serious difficulty hearing No 02/05/2024 3:19 PM Milla Hager RN No [facility] 02-05-2024 Are you blind, or do you have serious difficulty seeing, even when wearing glasses No 02/05/2024 3:19 PM Milla Hager RN No [facility] 02-05-2024 Do you have serious difficulty walking or climbing stairs Yes 02/05/2024 3:19 PM Milla Hager RN Yes [facility] 02-05-2024 Do you have difficul ty dressing or bathing No 02/05/2024 3:19 PM Milla Hager RN No [facility] 02-05-2024 Because of a physica l, mental, or emotional condition, do you have difficulty doing errands alone such as visiting a physician's office or shopping Yes 02/05/2024 3:19 PM Milla Hager RN Yes [facility] Mental Status Date Assessment Result Facility 02-05-2024 Because of a physica l, mental, or emotional condition, do you have serious difficulty concentrating, remembering, or making decisions No 02/05/2024 3:19 PM Milla Hager RN No [facility] Clinical Notes 11-18-2018 to 01-08-2025 Irina Zamorano LISW - 11/10/2024 1:42 PM EDTTelephone Encounter - Gema Trujillo LPN - 10/30/2024 4:01 PM EDTTelephone Encounter - Gema Trujillo LPN - 10/30/2024 4:01 PM EDT Note Date & Type Note Facility 01-08-2025 Note [facility] 12-16-2024 Note [facility] 12-15-2024 Note [facility] 12-15-2024 Note [facility] 12-03-2024 Note HNO ID: [id number] Author: VANI KELLEY RPh Service: Pharmacy Author Type: Pharmacist Type: Progress Notes Filed: 12/03/2024 15:53 Note Text: TRANSITION CARE MANAGEMENT (TCM) PHARMACY CONTACT Provider Action/FYI: TCM Medication Reconciliation completed for patient. See medication list table below for details. No further action required at this time Initial contact with patient post discharge, spoke to patient, and verified that any applicable caregiver is active in patient's medical care. Patient identified by name and . Summary: -Pt discharged from [facility] on 12/02/24. -Medication review done: Full medication review completed Patient Concerns: None Patient mentioned to TCM RN about saline syringes History of Present Illness: The following content has been copied and pasted from patient's discharge summary. If discharge summary unavailable, After Visit Summary or last pertinent inpatient notes are copied and pasted. - 68 yo lady with hx of cervical CA, R nephrectomy, L nephrostomy tube, partial bowel resection, CKD III admit with left flank pain, updated plan of care as below: 1) Pyelonephritis, L Nephrostomy tube - as per ID, ok to dc on Augmentin, follow up with Urology and IR for nephrostomy tube 2) CKD III, hx of acute renal failure, hx of lymph node biopsy showing noncaseating granulomas, metabolic acidosis - stable, as per Nephrology, continue prednisone at 10 mg per day, Nephrology arranging follow up in 2 to 4 weeks 3) Anemia - stable 4) Anxiety - effexor, stable 5) GI and DVT prophylaxis - diet, heparin SQ while admitted 6) Disposition - as above, stable for dc to home, needs close follow up with Nephrology, Urology and IR for nephrostomy tube maintenance Medication Reconciliation: Legend: Stopped, New, Changed, Paused, Added to list Medication List Medication Directions Comments Action/Plan acetaminophen (TYLENOL) 325 mg tablet Take 2 tablets by mouth every 4 hours as needed for pain or fever (specify temp.). Taking as prescribed without any issues Discontinued: 12/02/2024 3:50 PM amoxicillin-clavulanate potassium (AUGMENTIN) 500-125 mg per tablet Take 1 tablet by mouth two times a day for 14 doses. [facility] 12/02/24 #14/7ds Taking as prescribed without any issues Counseled on indication, administration and SE MULTIVITAMIN ORAL Take by mouth. Vitafusion Taking as prescribed without any issues OTC predniSONE (DELTASONE) 10 mg tablet Take 1 tablet by mouth once daily. Pt has 20 mg tabs at home, per Nephrology, take 1/2 tab of 20 mg tab LF 11/24/24 #30/30ds 20mg Decreased 20mg to 10mg 1/2 tablet daily of the 20mg tablets confirmed Follow up with nephro in 2-4wk Counseled on indication, administration and SE sodium chloride 0.9 %, flush, (NORMAL SALINE FLUSH) syringe 2-10 mL every 12 hours. 11/10/24 300mL $9.93 at [facility] - patient not needing a different pharmacy but rather issues with cost from inpatient vs outpatient and quantity issues- recommended to discuss with metal stud framer at follow up as may need a new Rx Only received #30 syringes sodium chloride 0.9 %, flush, (NORMAL SALINE FLUSH) syringe Use 2-10 mLs every 12 hours. venlafaxine ER (EFFEXOR XR) 37.5 mg 24 hr capsule Take 1 capsule by mouth every afternoon. Taking as prescribed without any issues 09/22/24 90ds Preferred pharmacy: e- [id number] [place] [address] - [address] [place] [address] [place] [address] [facility] [address] [place] [phone] Estimated Creatinine Clearance: 21.6 mL/min (A) (based on SCr of 2.45 mg/dL (H)). Estimated Glomerular Filtration Rate (mL/min/1.73m?) Date Value 12/02/2024 21 (L) 12/02/2024 19 (L) 12/01/2024 19 (L) 11/30/2024 19 (L) 11/29/2024 18 (L) Is patient active on HF registry? No Additional follow up: Next 5 Appointments Date and Time Provider Department Dept Phone 12/21/2024 8:15 AM Madisyn Garvin [facility] [phone] Interventions Made: Patient education/Medication counseling Pharmacist Recommendations Made None Care Coordination: Pharmacy contacted to facilitate patient care Time spent on patient: 30-45 minutes Vani Kelley RPh December 03, 2024 10:53 AM [facility] 12-03-2024 Note Patient Outreach (PH RXRF) JULIA WILLOUGHBY ([id number]) 1955 F Date Time Provider Department 12/03/24 VANI KELLEY PHRXRF During your visit today, we recorded the following information about you: Vani Kelley [facility] 12/03/2024 3:53 PM Signed TRANSITION CARE MANAGEMENT (TCM) PHARMACY CONTACT Provider Action/FYI: TCM Medication Reconciliation completed for patient. See medication list table below for details. No further action required at this time Initial contact with patient post discharge, spoke to patient, and verified that any applicable caregiver is active in patient's medical care. Patient identified by name and . Summary: -Pt discharged from [facility] on 12/02/24. -Medication review done: Full medication review completed Patient Concerns: None Patient mentioned to TCM RN about saline syringes History of Present Illness: The following content has been copied and pasted from patient's discharge summary. If discharge summary unavailable, After Visit Summary or last pertinent inpatient notes are copied and pasted. - 68 yo lady with hx of cervical CA, R nephrectomy, L nephrostomy tube, partial bowel resection, CKD III admit with left flank pain, updated plan of care as below: 1) Pyelonephritis, L Nephrostomy tube - as per ID, ok to dc on Augmentin, follow up with Urology and IR for nephrostomy tube 2) CKD III, hx of acute renal failure, hx of lymph node biopsy showing noncaseating granulomas, metabolic acidosis - stable, as per Nephrology, continue prednisone at 10 mg per day, Nephrology arranging follow up in 2 to 4 weeks 3) Anemia - stable 4) Anxiety - effexor, stable 5) GI and DVT prophylaxis - diet, heparin SQ while admitted 6) Disposition - as above, stable for dc to home, needs close follow up with Nephrology, Urology and IR for nephrostomy tube maintenance Medication Reconciliation: Legend: Stopped, New, Changed, Paused, Added to list Medication List Medication Directions Comments Action/Plan acetaminophen (TYLENOL) 325 mg tablet Take 2 tablets by mouth every 4 hours as needed for pain or fever (specify temp.). Taking as prescribed without any issues Discontinued: 12/02/2024 3:50 PM amoxicillin-clavulanate potassium (AUGMENTIN) 500-125 mg per tablet Take 1 tablet by mouth two times a day for 14 doses. [facility] 12/02/24 #14/7ds Taking as prescribed without any issues Counseled on indication, administration and SE MULTIVITAMIN ORAL Take by mouth. Vitafusion Taking as prescribed without any issues OTC predniSONE (DELTASONE) 10 mg tablet Take 1 tablet by mouth once daily. Pt has 20 mg tabs at home, per Nephrology, take 1/2 tab of 20 mg tab LF 11/24/24 #30/30ds 20mg Decreased 20mg to 10mg 1/2 tablet daily of the 20mg tablets confirmed Follow up with nephro in 2-4wk Counseled on indication, administration and SE sodium chloride 0.9 %, flush, (NORMAL SALINE FLUSH) syringe 2-10 mL every 12 hours. LF 11/10/24 300mL $9.93 at [facility] - patient not needing a different pharmacy but rather issues with cost from inpatient vs outpatient and quantity issues- recommended to discuss with metal stud framer at follow up as may need a new Rx Only received #30 syringes sodium chloride 0.9 %, flush, (NORMAL SALINE FLUSH) syringe Use 2-10 mLs every 12 hours. venlafaxine ER (EFFEXOR XR) 37.5 mg 24 hr capsule Take 1 capsule by mouth every afternoon. Taking as prescribed without any issues LF 09/22/24 90ds Preferred pharmacy: e- [id number] [place] [address] - [address] [facility] - [phone] [address] [facility] [address] [facility] [address] [facility] [address] Estimated Creatinine Clearance: 21.6 mL/min (A) (based on SCr of 2.45 mg/dL (H)). Estimated Glomerular Filtration Rate (mL/min/1.73m?) Date Value 12/02/2024 21 (L) 12/02/2024 19 (L) 12/01/2024 19 (L) 11/30/2024 19 (L) 11/29/2024 18 (L) Is patient active on HF registry? No Additional follow up: Next 5 Appointments Date and Time Provider Department Dept Phone 12/21/2024 8:15 AM Madisyn Garvin [facility] [phone] Interventions Made: Patient education/Medication counseling Pharmacist Recommendations Made None Care Coordination: Pharmacy contacted to facilitate patient care Time spent on patient: 30-45 minutes Vani Kelley [facility] December 03, 2024 10:53 AM Allergies As of Date: 12/03/2024 Noted Allergy Reaction PENICILLINS 10/16/2018 2 - Rash CEFDINIR 02/13/2024 2 - Rash NORCO (HYDROCODONE-ACETAMINOPHEN) 11/16/2018 8 - GI Upset SULFA (SULFONAMIDE ANTIBIOTICS) 11/16/2018 8 - GI Upset Date Reviewed: 11/30/2024 Reviewed by: Dayna Jamison RN - Fully Assessed Reason for Visit: Transition Of Care [4074] Cmt: (more content not included)... [facility] 12-02-2024 Note [facility] 12-02-2024 Note HNO ID: [id number] Author: ANA FOOTE RN Service: Nursing Author Type: Registered Nurse Type: Nursing Progress Note Filed: 12/02/2024 07:11 Note Text: Pt refused tele monitoring this am, RN obliged pt request, will discontinue and monitor [facility] 12-01-2024 Note [facility] 12-01-2024 Note [facility] 12-01-2024 Note [facility] 11-30-2024 Note [facility] 11-10-2024 Note HNO ID: [id number] Author: IRINA ZAMORANO LISW Service: ? Author Type: Miner Placer Type: Progress Notes Filed: 11/10/2024 14:00 Note Text: Provider Action / FYI PCP Action FYI Primary Care Social Work Assessment Date of Service: November 10, 2024 (Patient has been identified by name and date of ) Patient Name: Julia Willoughby Referred by: Physician Patient Practicing Urologist: n/a Hand-In Received: Yes Reason for Consultation: Financial Resources and Community Resources Mode of Outreach: Phone Call Patient Contact: Telephonic [facility] Last [facility] Admission Date: Previous admit date: 02/01/2024 Health Literacy: 1. How often do you need to have someone help you when you read instructions, pamphlets, or other written material from your doctor or pharmacy?Never - 1 2. How confident are you filling out medical forms by yourself?Extremely - 1 If the patient scored 3 on either question, the following interventions were put into place:Patient did not score > 3 Advanced Directives: none listed in chart Social Pumper Head: Alfredo YOSHI Fofana [phone] Caregiver Status: does not provide care for another Marital Status: Parents: did not discuss Children: did not discuss Siblings: did not discuss Emotional Support animals: none Stress: medical tx costs Primary Language: Romanian Ethnicity/Cultural identification: Not Evangelical Affiliation: none Gender Identity: Sexual Orientation: Status (Including History of Combat Experience): None Living Arrangements: Home Resides with: Partner Issues or Concerns with Home Environment: none noted Food Insecurity: Food Insecurity: No Food Insecurity (02/02/2024) Hunger Vital Sign Worried About Running Out of Food in the Last Year: Never true Ran Out of Food in the Last Year: Never true See above Financial Resource Strain: Financial Resource Strain: Not on file Present--medical tx costs Transportation: Transportation Needs: No Transportation Needs (02/02/2024) PRAPARE - Transportation Lack of Transportation (Medical): No Lack of Transportation (Non-Medical): No Needs met Housing: Housing Stability: Low Risk (02/02/2024) Housing Stability Vital Sign Unable to Pay for Housing in the Last Year: No Number of Times Moved in the Last Year: 1 Homeless in the Last Year: No Stable Functional Hearing Impairment: none noted Speech Impairment: none noted Visual Impairment: none noted Dental Impairments: none noted ADL/IADL Impairment: independent Durable Medical Equipment: n/a Cognitive/Behavioral Mental Status: AOx3 Behavioral Health History: depression Substance Use AND Treatment History: none noted History of Abuse/Neglect: none noted Additional Psychosocial Stressors/Concerns: Patient Strengths/Protective Factors: medical insurance, supportive SO, housed, independent Access Behavioral Health Provider: n/a Home Health Provider: n/a Community Services: n/a Employment/Employer: retired Source of Income: social security, pension Insurance Provider(s): Payor: HUMANA MEDICARE / Plan: HUMANA MEDICARE PPO / Product Type: PPO / Medication Adherence: I am convinced of the importance of my prescription medication:Agree completely - 0 I worry that my prescription medication will do more harm than good to me:Disagree completely - 0 I feel financially burdened by my [id number] expenses for my prescription medication:Agree somewhat - 0 Patient is categorized as:low risk < 2 Patient Stated Goals: financial assistance for medical care [place] Explained: N/A Summary: PCSW received referral from pts PCP re: assistance with co-pays. ANJALI reviewed chart and contacted pt. She states she gets her nephrostomy tube exchange every 2 months and that her co-pay is almost $500 each time. Discussed options. Provided pt with the contact number for the [place] [facility] [facility] and instructed pt to ask to apply for Safety Net Tone Program as well as the Insurance Premium Payment Assistance. ANJALI also provided pt with the contact number for CC financial counselor and instructed pt to request HCAP assistance. Provided SW contact number and encouraged pt to reach out to with any additional needs/needed support. Hand-Off Communication: n/a Financial - External Resource Financial Counselor - Internal Resource Time Spent: 90 minutes SIGNATURE: POLINA Cheng PATIENT NAME: Julia Willoughby DATE: November 10, 2024 TIME: 1:43 PM CONTACT #: [phone] [facility] 11-10-2024 History of Presen t illness Narrative Provider Action / FYI PCP Action FYI Primary Care Social Work Assessment Date of Service: November 10, 2024 (Patient has been identified by name and date of ) Patient Name: Julia Willoughby Referred by: Physician Patient Practicing Urologist: n/a Hand-In Received: Yes Reason for Consultation: Financial Resources and Community Resources Mode of Outreach: Phone Call Patient Contact: Telephonic [facility] Admission Date: Previous admit date: 02/01/2024 Health Literacy: 1. How often do you need to have someone help you when you read instructions, pamphlets, or other written material from your doctor or pharmacy?Never - 1 2. How confident are you filling out medical forms by yourself?Extremely - 1 If the patient scored 3 on either question, the following interventions were put into place:Patient did not score > 3 Advanced Directives: none listed in chart Social Pumper Head: Pts YOSHI Fofana [phone] Caregiver Status: does not provide care for another Marital Status: Parents: did not discuss Children: did not discuss Siblings: did not discuss Emotional Support animals: none Stress: medical tx costs Primary Language: Romanian Ethnicity/Cultural identification: Not Evangelical Affiliation: none Gender Identity: Sexual Orientation: Status (Including History of Combat Experience): None Living Arrangements: Home Resides with: Partner Issues or Concerns with Home Environment: none noted Food Insecurity: Food Insecurity: No Food Insecurity (02/02/2024) Hunger Vital Sign Worried About Running Out of Food in the Last Year: Never true Ran Out of Food in the Last Year: Never true See above Financial Resource Strain: Financial Resource Strain: Not on file Present--medical tx costs Transportation: Transportation Needs: No Transportation Needs (02/02/2024) PRAPARE - Transportation Lack of Transportation (Medical): No Lack of Transportation (Non-Medical): No Needs met Housing: Housing Stability: Low Risk (02/02/2024) Housing Stability Vital Sign Unable to Pay for Housing in the Last Year: No Number of Times Moved in the Last Year: 1 Homeless in the Last Year: No Stable Functional Hearing Impairment: none noted Speech Impairment: none noted Visual Impairment: none noted Dental Impairments: none noted ADL/IADL Impairment: independent Durable Medical Equipment: n/a Cognitive/Behavioral Mental Status: AOx3 Behavioral Health History: depression Substance Use & Treatment History: none noted History of Abuse/Neglect: none noted Additional Psychosocial Stressors/Concerns: Patient Strengths/Protective Factors: medical insurance, supportive SO, housed, independent Access Behavioral Health Provider: n/a Home Health Provider: n/a Community Services: n/a Employment/Employer: retired Source of Income: social security, pension Insurance Provider(s): Payor: HUMANA MEDICARE / Plan: HU[employer]NA MEDICARE PPO / Product Type: PPO / Medication Adherence: I am convinced of the importance of my prescription medication:Agree completely - 0 I worry that my prescription medication will do more harm than good to me:Disagree completely - 0 I feel financially burdened by my spy-ke-ljnphb expenses for my prescription medication:Agree somewhat - 0 Patient is categorized as:low risk < 2 Patient Stated Goals: financial assistance for medical care [place] Explained: N/A Summary: PCSW received referral from pts PCP re: assistance with co-pays. SW reviewed chart and contacted pt. She states she gets her nephrostomy tube exchange every 2 months and that her co-pay is almost $500 each time. Discussed options. Provided pt with the contact number for the [place] [facility] [facility] and instructed pt to ask to apply for Safety Net Tone Program as well as the Insurance Premium Payment Assistance. also provided pt with the contact number for CC financial counselor and instructed pt to request HCAP assistance. Provided SW contact number and encouraged pt to reach out to with any additional needs/needed support. Hand-Off Communication: n/a Financial - External Resource Financial Counselor - Internal Resource Time Spent: 90 minutes SIGNATURE: POLINA Cheng PATIENT NAME: Julia Willoughby DATE: November 10, 2024 TIME: 1:43 PM CONTACT #: [phone] documented in this encounter [facility] 11-10-[address] [facility] 10-30-2024 Telephone encounter Note Left message to call [facility] 10-30-2024 Miscellaneous Notes Left message to call No has to see nephrology soon. Would like her to make appointment here also soon Patient called in and left a voicemail and said that she called the referral line for the referral to the metal stud framer and she said she would have to go to [facility] and doesn't want to go that far. She said she spoke with the hospital and said sometimes these two things can overlap and wants to know if you think she could see an assistant farm operations manager instead. Please advise. Spoke with patient and advised. Gave patient the referral line phone number to call and schedule Left message to call Will refer to nephrology Patient called in and left another voicemail regarding possible referral for second opinion. See message below. Pt called and states that she was told she has calcium in her blood and is stage 5 kidney failure - she would like to know if she should get a second opinion. Please advise. documented in this encounter [facility] 10-30-2024 Telephone encounter Note No has to see nephrology soon. Would like her to make appointment here also soon [facility] 10-30-2024 Telephone encounter Note Patient called in and left a voicemail and said that she called the referral line for the referral to the metal stud framer and she said she would have to go to [facility] and doesn't want to go that far. She said she spoke with the hospital and said sometimes these two things can overlap and wants to know if you think she could see an assistant farm operations manager instead. Please advise. [facility] 10-30-2024 Telephone encounter Note Spoke with patient and advised. Gave patient the referral line phone number to call and schedule [facility] 10-30-2024 Telephone encounter Note Left message to call [facility] 10-30-2024 Telephone encounter Note Will refer to nephrology [facility] 10-30-2024 Telephone encounter Note Patient called in and left another voicemail regarding possible referral for second opinion. See message below. [facility] 10-29-2024 Telephone encounter Note Pt called and states that she was told she has calcium in her blood and is stage 5 kidney failure - she would like to know if she should get a second opinion. Please advise. [facility] 09-29-2024 History of Presen t illness Narrative Radiology Service Progress Note PATIENT NAME: Julia Willoughby DATE OF SERVICE: September 29, 2024 TIME: 4:01 PM PATIENT IDENTITY VERIFICATION COMPLETED USING TWO (2) IDENTIFIERS: Name and Date of confirmed by patient verbally. FALL SCREENING: Has the patient had 2 falls in the last year or 1 fall with injury or currently using an Ambulatory Assistive Device (Walker, Cane, Wheelchair, Crutches, etc.)? No PATIENT GENDER DATA: Assigned female at . status: : No status: N/A PATIENT RELEVANT IMPLANT DATA REVIEWED: Not Applicable PATIENT PRESENTS WITH AN IMPLANTABLE OR ATTACHED JUNIOR ARCHITECT: No RADIOLOGY DEPARTMENT: Mammography PERIPHERAL IV DATA: Not applicable SIGNED BY: RT Denis(R) September 29, 2024 4:01 PM documented in this encounter [facility] 09-29-[address] [facility] 04-23-2024 Telephone encounter Note Faxed over new order to [phone] at 11:25am and called patient to inform per note request. Patient didn't answer so left brief message. Maynor Lock [facility] 04-23-2024 Miscellaneous Notes Faxed over new order to [phone] at 11:25am and called patient to inform per note request. Patient didn't answer so left brief message. Maynor Lock Pt needs new order faxed for pt for new protesis. or [phone] Please let Julia know when faxed 2nd attempt, left message to call Patient called in and left a voicemail regarding a PT order for prosthetic leg, got it in February, place wants to go is [facility] in [place], [place]. Says she has more information and the phone and fax number when jorge back. Tried calling patient to clarify message, no answer, left message to call documented in this encounter [facility] 04-23-2024 Telephone encounter Note Pt needs new order faxed for pt for new protesis. or [phone] Please let Julia know when faxed [facility] 04-22-2024 Telephone encounter Note 2nd attempt, left message to call [facility] 04-21-2024 Telephone encounter Note Patient called in and left a voicemail regarding a PT order for prosthetic leg, got it in February, place wants to go is [facility] in [place], [place]. Says she has more information and the phone and fax number when jorge back. Tried calling patient to clarify message, no answer, left message to call [facility] 02-13-2024 Note [facility] 02-13-2024 History of Presen t illness Narrative Images from the original note were not included. [facility] Medicine Rodolfo Garvin DO [address] [place] [address] Date of Evaluation: 02/13/2024 Patient Name: Julia Willoughby : 1955 Chief Complaint: Patient presents with: Transition Of Care: 01/31/24/-02/05/24 [facility]. Nephrostomy tube displaced Rash: X 1 week. All over body. finished antibiotic yesterday: cefdinir Subjective Ms. Willoughby is a 68 year old female who presents with the following complaint(s): The history is provided by the patient. No license clerk was used. Rash This is a new problem. Episode onset: after starting cefidinr. The problem is unchanged. The affected locations include the torso, chest, back and left arm. The rash is characterized by redness. She was exposed to a new medication. Pertinent negatives include no cough, fatigue or shortness of breath. Anxiety Pertinent negatives include no weakness. This is a chronic problem. Past treatments include nothing. Review of Systems Constitutional: Negative for fatigue and unexpected weight change. HENT: Negative for nosebleeds. Eyes: Negative for redness and visual disturbance. Respiratory: Negative for apnea, cough and shortness of breath. Cardiovascular: Negative for chest pain, palpitations and leg swelling. Genitourinary: Negative for hematuria. Skin: Positive for rash. Neurological: Negative for dizziness, weakness, light-headedness, numbness and headaches. Hematological: Does not bruise/bleed easily. Psychiatric/Behavioral: The patient is nervous/anxious. 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 Hydronephrosis Osteomyelitis (HCC) 10/2001 Surgical washout L Hip, Sacrum IV ATB x 4 months Overactive bladder Peritonitis in infectious disease (HCC) Staph infection Vesicovaginal fistula PAST SURGICAL HISTORY Procedure Laterality Date BYP OTH/THN VEIN FEMORAL-POPLITEAL Right 2007 COLOSTOMY 2001 EXTRACTION, ERUPTED TOOTH OR EXPOSED ROOT (ELEVATION AND/OR FORCEPS REMOVAL) NEPHROSTOMY TUBE Left 09/2018 NEPHROSTOMY TUBE 2023 PAST SURGICAL HISTORY OF Left 2007 nephrectomy PAST SURGICAL HISTORY OF 2001 colon resection with colostomy PAST SURGICAL HISTORY OF Right 2010 Above the knee amputation PAST SURGICAL HISTORY OF lower back muscle removed after infection from bowel rupture. PAST SURGICAL HISTORY OF 2001 VENA CAVA FILTER FAMILY HISTORY Problem Relation Age of Onset Alzheimer's Disease Mother Blood Clots Mother Diabetes Father Social History Tobacco Use Smoking status: Never Smokeless tobacco: Never Vaping Use Vaping status: Never Used Substance Use Topics Alcohol use: Not Currently Drug use: Never Current Outpatient Medications Medication Sig venlafaxine ER (EFFEXOR XR) 37.5 mg 24 hr capsule Take 1 capsule by mouth every afternoon. MULTIVITAMIN ORAL Take by mouth. Vitafusion Acetaminophen 500 mg cap Take by mouth. LORazepam (ATIVAN) 1 mg tablet Take 1 tablet by mouth every 6 hours as needed for anxiety for up to 7 days. triamcinolone acetonide (KENALOG) 0.1 % cream Apply to affected area three times a day for 7 days. predniSONE (DELTASONE) 20 mg tablet Take 1 tablet by mouth once daily. cefdinir (OMNICEF) 300 mg capsule Take 1 capsule by mouth once daily. (Patient not taking: Reported on 02/13/2024) biotin 300 mcg tab Take 300 mcg by mouth. (Patient not taking: Reported on 02/13/2024) No current facility-administered medications for this visit. I have confirmed and edited as necessary the past medical, family and social histories, HPI, and ROS obtained by others. Objective BP 130/64 Pulse 91 Temp 97.5 Ht 5' 5 (1.65m) Wt 0 lb (0.0kg) SpO2 98% Physical Exam Vitals and nursing note reviewed. Constitutional: General: She is not in acute distress. Appearance: Normal appearance. She is well-developed. She is not ill-appearing. Comments: In wheelchair HENT: Head: Normocephalic. Nose: Nose normal. Mouth/Throat: Mouth: Mucous membranes are moist. Pharynx: Oropharynx is clear. Uvula midline. No oropharyngeal exudate or posterior oropharyngeal erythema. Eyes: General: Lids are normal. Vision grossly intact. Gaze aligned appropriately. No scleral icterus. Right eye: No discharge. Left eye: No discharge. Extraocular Movements: Extraocular movements intact. Conjunctiva/sclera: Conjunctivae normal. Pupils: Pupils are equal, round, and reactive to light. Neck: Thyroid: No thyroid mass, thyromegaly or thyroid tenderness. Vascular: No carotid bruit. Trachea: Trachea and phonation normal. Cardiovascular: Rate and Rhythm: Normal rate and regular rhythm. Pulses: Normal pulses. Heart sounds: Normal heart sounds. Musculoskeletal: General: Normal range of motion. Right shoulder: Normal. Left shoulder: Normal. Cervical back: Normal, full passive range of motion without pain and neck supple. No tenderness. No spinous process tenderness. Thoracic back: Normal. Lumbar back: Normal. Right knee: Normal. Left knee: Normal. Right lower leg: No edema. Left lower leg: No edema. Right Lower Extremity: Right leg is amputated above knee. Lymphadenopathy: Cervical: No cervical adenopathy. Skin: General: Skin is warm and dry. Findings: Rash present. Neurological: General: No focal deficit present. Mental Status: She is alert and oriented to person, place, and time. Mental status is at baseline. Sensory: Sensation is intact. Motor: Motor function is intact. Psychiatric: Attention and Perception: Attention and perception normal. Mood and Affect: Mood normal. Speech: Speech normal. Behavior: Behavior normal. Thought Content: Thought content normal. Judgment: Judgment normal. Data Reviewed: No new labs ASSESSMENT/PLAN: 1. Nephrostomy tube displaced ([facility]) - ICD9: 997.5, ICD10: T83.022A (primary diagnosis) 2. Cervical cancer, FIGO stage IIB ([facility]) - ICD9: 180.9, ICD10: C53.9 3. Hx of AKA (above knee amputation), right ([facility]) - ICD9: V49.76, ICD10: Z89.611 4. BMI 22.0-22.9, adult - ICD9: V85.1, ICD10: Z68.22 5. MANDEEP (generalized anxiety disorder) - ICD9: 300.02, ICD10: F41.1 - Start Lorazepam as needed - LORAZEPAM 1 MG TABLET 6. Allergic dermatitis - ICD9: 692.9, ICD10: L23.9 - Cefdinir added as allergy - Start topical Cream - Start prednisone Taper. - TRIAMCINOLONE ACETONIDE 0.1 % TOPICAL CREAM - PREDNISONE 20 MG TABLET Madisyn Garvin DO Return if symptoms worsen or fail to improve. Attestation: Scribe Attestation: The patient is seen and examined by Dr. Garvin and the following reflects his/her service. Scribed by Chidi hKan February 13, 2024 10:25 AMProvider Attestation: I, Madisyn Garvin DO personally performed the services described in this documentation. All medical record entries made by the scribe were at my direction and in my presence. I have reviewed the chart and discharge instructions (if applicable) and agree that the record reflects my personal performance and is accurate and complete. Electronically Signed: Madisyn Garvin DO, February 13, 2024 10:35 AM documented in this encounter [facility] 02-11-2024 Note HNO ID: [id number] Author: NELA SHAVER LPN Service: ? Author Type: LICENSED NURSE Type: Progress Notes Filed: 02/11/2024 09:43 Note Text: Spoke to pt - informed of appt with Dr. Garvin. She is not able to come in any sooner d/t transportation. [facility] 02-10-2024 Note [facility] 02-10-2024 History of Presen t illness Narrative Called the patient and offered an appointment as early as 02/11/24. The patient is unable to find transportation until 02/13/24. She will talk to her when he gets home tonight. She will call the nurse line tomorrow morning [facility] TRANSITIONAL CARE MANAGEMENT (TCM) FOLLOW-UP NOTE Provider Action/FYI: Patient states the rash she reported on 02/05 has spread all over her body, including in her hair. Flat red rash, not open or weeping but is itchy at times and uncomfortable. Wants to know what to do. PCP appt is not until 02/16. Patient identified by name and date of : YES Spoke to: patient Diagnosis: N/A Summary: Patient did not hear back from PCP. States she has two days left of her ATB. States the rash she complained of has spread all over her body, even in her hair. Patient states it is not open or weeping but is itchy and uncomfortable at times. Wondering if she should continue the ATB-Cefdinir. She is going to call her Rn Primary Care right now for appt and to ask about continuing the ATB. Urged patient to go to urgent care if unable to get thru to metal stud framer or does not hear back from PCP. Practicing Urologist plan for next outreach: Will follow-up next week. Signature: Zeenat Hernández RN February 10, 2024 documented in this encounter [facility] 02-10-2024 Note [facility] 02-06-2024 Note [facility] 02-06-2024 History of Presen t illness Narrative TRANSITIONAL CARE MANAGEMENT (TCM) COMMUNITY MONITORING PROGRAM - [facility] Provider Action/FYI: [facility] d/c 02/04 Nephrostomy tube displaced [facility] hospital f/u 02/16 at 9am Patient c/o flat pink/red rash around waist, in groins, a few patches on arms/legs. States itchy at times but not constant. States she noted it after leaving the hospital--had not started her oral ATB until this am-so it was present prior to starting. I has not seemed to increase per patient. Asking if she can use benadryl or cortisone cream to it. SUMMARY: Pt discharged from [facility] on 02/04/25. Admitted for: Nephrostomy tube displaced Patient seen Inpatient STACY Visit? No. Patient seen ICARE Program? No. Contact made with patient: Yes Hi my name is Zeenat Hernández RN and I am calling from the [facility] on behalf of your PCP, Madisyn Garvin, DO I understand you were recently in the hospital so I am calling to check in with you to ensure you are feeling well now that you re home. Do you mind if I ask you a few questions related to your hospital stay and well-being Yes Contact with patient post discharge, spoke to patient. Patient identified by name and . Do you feel your health is BETTER, WORSE, or the SAME since leaving the hospital? Better ACTION TAKEN: Patient indicated symptoms are better or same, no action required. Continue outreach. N/A MEDICATIONS: Many patients have questions or concerns about their medications once they are home. Do you have any questions about taking your medications or which medication you should be on? No Do you need any medication refills at this time, including any of the medications you might take only when needed? No ACTION TAKEN: No action required For RNs or Pharmacy completing outreach ONLY, was a medication review completed? Yes Current/Discharged Medications reviewed: Yes Medication List Medication Directions Comments Action/Plan Acetaminophen 500 mg cap Take by mouth. biotin 300 mcg tab Take 300 mcg by mouth. Discontinued: 02/05/2024 2:02 PM Discontinued: 02/05/2024 2:54 PM cefdinir (OMNICEF) 300 mg capsule Take 1 capsule by mouth once daily. Discontinued: 02/05/2024 2:54 PM LORazepam (ATIVAN) 0.5 mg Take 1 tablet by mouth three times a day as needed for up to 7 days. MULTIVITAMIN ORAL Take by mouth. Vitafusion venlafaxine ER (EFFEXOR XR) 37.5 mg 24 hr capsule Take 1 capsule by mouth every afternoon. Discontinued: 02/05/2024 1:30 PM SOCIAL: We would like to make sure you have what you need so that your basics needs are met - including your personal safety. HEALTH LEADS SCREENING TOOL QUESTIONS: Do you often feel you lack companionship? No Do you ever need help reading or understanding hospital materials? No In the last 12 months, have you changed how you take medications to save money? No In the past 12 months, has lack of transportation kept you from medical appointments, work or getting things you need like food, or supplies? No In the last 12 months, did you ever eat less than you felt you should because there wasn't enough money for food? No During the winter, do you anticipate having a problem paying your heating bill? No In the next 2 months, are you worried you might not have stable housing? No Would you like to speak with a social work rock climbing team member to help give you support for any of these needs? No It can be normal to feel anxious or down during a time like this. Would you like to talk to a mental health professional about how you have been feeling? No ACTION TAKEN: No action taken DISCHARGE INTRUCTIONS: Your discharge instructions / After Visit Summary (AVS) are important in guiding you through the recovery process. Do you have any questions related to your discharge instructions? No Do you have all the necessary equipment and supplies at home? Yes ACTION TAKEN: No action required WRAP AROUND SERVICES: N/A Patient educated on importance of primary care provider follow up visit as well as specialty provider follow up visits as indicated. Inform the patient that if they have any questions or concerns prior to that appointment, to call their Primary Care Provider 's office right away. Primary care provider first education provided. I would like to help you schedule a hospital follow-up virtual or telephone visit with your PCP. ACTION TAKEN: TCM Primary Care Provider Visit Scheduled: Yes - Appt date: 02/[address] Garvin Your doctor would like us to remind you of the recommendations regarding the coronavirus (Covid19) outbreak: Avoid public places as much as possible. Avoid close contact (within 6 feet) with others you don't live with, especially if they are sick. Stay home if you are sick. Wash your hands regularly for at least 20 seconds with soap and water. Wear a cloth mask in public places to help reduce community spread. Do not go to your Doctor's office unless instructed to do so. For any non-emergency symptoms, call your Doctor's office to get instructions on how to manage (we might recommend a telephone or virtual visit). For emergency symptoms, proceed to Emergency Department as usual but inform them of cough and fever symptoms REJI if present (or call on the way if possible). documented in this encounter [facility] 02-05-2024 Note [facility] 02-05-2024 Note [facility] 02-04-2024 Note [facility] 02-04-2024 Note [facility] 02-04-2024 Note [facility] 02-03-2024 Note [facility] 02-03-2024 Note [facility] 02-02-2024 Note [facility] 02-02-2024 Note [facility] 02-01-2024 Note [facility] 02-01-2024 Note [facility] 01-02-2024 Telephone encounter Note Pt needs a new prosthetic right leg. She talked to her insurance company and they say she is covered for Pt. She would like you to write an order for Pt to [facility] in [place]. She is getting new leg at end of Jan When we get order, we should call [employer] at [phone] and obtain the fax number and fax the order. Also call Pt at [phone] and advise her that the order has been faxed. Amy Parra [facility] 01-02-2024 Miscellaneous Notes Pt needs a new prosthetic right leg. She talked to her insurance company and they say she is covered for Pt. She would like you to write an order for Pt to [facility] in [place]. She is getting new leg at end of Jan When we get order, we should call [employer] [facility] at [phone] and obtain the fax number and fax the order. Also call Pt at [phone] and advise her that the order has been faxed. Amy Parra documented in this encounter [facility] 11-21-2023 Surgery Surgical operation note BRIEF OPERATIVE / PROCEDURE NOTE LOG ID: [id number] SURGERY/PROCEDURE DATE: 11/21/2023 INCISION/PROCEDURE START TIME: 8:18 AM INCISION CLOSE/PROCEDURE END TIME: 8:26 AM SURGEON(S)/PROCEDURALIST(S) AND PLANT MACHINIST(S): Surgeons and Role: * Devan Husain MD - Primary No Additional Staff SURGERY/PROCEDURE(S): Left nephrostomy tube exchange. ANESTHESIA: Procedural Sedation FINDINGS: Partially occluded left 10 [place] nephrostomy tube. ESTIMATED BLOOD LOSS: Scant. SPECIMENS: None COMPLICATIONS: None PRE-OP/PRE-PROCEDURE DIAGNOSIS: Chronic left nephrostomy tube, for routine exchange. POST-OP/POST-PROCEDURE DIAGNOSIS: Same as Preop Patient was accompanied to the next level of care by a licensed practitioner from the surgical team pending completion of this brief op note (or operative note) SIGNATURE: Devan Husain MD PATIENT NAME: Julia Willoughby DATE: November 21, 2023 TIME: 8:34 AM [facility] 11-21-2023 Surgical operatio n note BRIEF OPERATIVE / PROCEDURE NOTE LOG ID: [id number] SURGERY/PROCEDURE DATE: 11/21/2023 INCISION/PROCEDURE START TIME: 8:18 AM INCISION CLOSE/PROCEDURE END TIME: 8:26 AM SURGEON(S)/PROCEDURALIST(S) AND PLANT MACHINIST(S): Surgeons and Role: * Devan Husain MD - Primary No Additional Staff SURGERY/PROCEDURE(S): Left nephrostomy tube exchange. ANESTHESIA: Procedural Sedation FINDINGS: Partially occluded left 10 [place] nephrostomy tube. ESTIMATED BLOOD LOSS: Scant. SPECIMENS: None COMPLICATIONS: None PRE-OP/PRE-PROCEDURE DIAGNOSIS: Chronic left nephrostomy tube, for routine exchange. POST-OP/POST-PROCEDURE DIAGNOSIS: Same as Preop Patient was accompanied to the next level of care by a licensed practitioner from the surgical team pending completion of this brief op note (or operative note) SIGNATURE: Devan Husain MD PATIENT NAME: Julia Willoughby DATE: November 21, 2023 TIME: 8:34 AM documented in this encounter [facility] 11-21-2023 History and physical note PROCEDURAL SEDATION HISTORY AND PHYSICAL EXAM SERVICE DATE: 11/21/2023 SERVICE TIME: 8:07 AM Subjective HPI: This is a 67 year old female who presents with chronic left nephrostomy tube, for routine exchange. PAST ANESTHESIA HISTORY: No history of adverse event 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 Hydronephrosis Osteomyelitis ([facility]) 10/2001 Surgical washout L Hip, Sacrum IV ATB x 4 months Overactive bladder Peritonitis in infectious disease ([facility]) Staph infection Vesicovaginal fistula PAST SURGICAL HISTORY Procedure Laterality Date BYP OTH/THN VEIN FEMORAL-POPLITEAL Right 2006 COLOSTOMY 2001 EXTRACTION, ERUPTED TOOTH OR EXPOSED ROOT (ELEVATION AND/OR FORCEPS REMOVAL) NEPHROSTOMY TUBE Left 09/2018 PAST SURGICAL HISTORY OF Left 2007 nephrectomy PAST SURGICAL HISTORY OF 2001 colon resection with colostomy PAST SURGICAL HISTORY OF Right 2010 Above the knee amputation PAST SURGICAL HISTORY OF lower back muscle removed after infection from bowel rupture. PAST SURGICAL HISTORY OF 2001 VENA CAVA FILTER Prior to Admission medications as of 11/21/23 0805 Medication Sig Last Dose Taking venlafaxine ER (EFFEXOR XR) 37.5 mg 24 hr capsule Take 1 capsule by mouth every afternoon. 11/20/2023 Yes MULTIVITAMIN ORAL Take by mouth. Vitafusion 11/20/2023 Yes Acetaminophen 500 mg cap Take by mouth. 11/21/2023 Yes biotin 300 mcg tab Take 300 mcg by mouth. 11/20/2023 Yes venlafaxine ER (EFFEXOR XR) 75 mg 24 hr capsule Take 37.5 mg by mouth once daily. 11/20/2023 Yes ALLERGIES Allergen Reactions Penicillins Rash [place] [Hydrocodone-* GI Upset Sulfa (Sulfonamide * GI Upset Objective PHYSICAL EXAM: The remainder of the physical exam is noncontributory. AIRWAY: Airway Visualization of Uvula: Yes Mouth opening greater than 2 fingerbreadths: Yes Neck Full Range of Motion: Yes LUNGS: Lungs clear to auscultation CARDIAC: Regular rhythm,Regular rate Assessment/Plan ASA Class: ASA Class: Patient with severe systemic disease Active Problems: * No active hospital problems. * Resolved Problems: * No resolved hospital problems. * Medication and Non-Pharmacologic VTE Prophylaxis/Anticoagulants VTE Prophylaxis: VTE prophylaxis appropriate Provisional Diagnosis/Treatment Plan: Chronic left nephrostomy tube, for routine exchange. Sedation Goal: Moderate SIGNATURE: Devan Husain MD PATIENT NAME: Julia Willoughby DATE: November 21, 2023 TIME: 8:07 AM [facility] Work Phone: 11-21-2023 History and physical note PROCEDURAL SEDATION HISTORY AND PHYSICAL EXAM SERVICE DATE: 11/21/2023 SERVICE TIME: 8:07 AM Subjective HPI: This is a 67 year old female who presents with chronic left nephrostomy tube, for routine exchange. 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 Hydronephrosis Osteomyelitis ([facility]) 10/2001 Surgical washout L Hip, Sacrum IV ATB x 4 months Overactive bladder Peritonitis in infectious disease ([facility]) Staph infection Vesicovaginal fistula PAST SURGICAL HISTORY Procedure Laterality Date BYP OTH/THN VEIN FEMORAL-POPLITEAL Right 2007 COLOSTOMY 2002 EXTRACTION, ERUPTED TOOTH OR EXPOSED ROOT (ELEVATION AND/OR FORCEPS REMOVAL) NEPHROSTOMY TUBE Left 09/2018 PAST SURGICAL HISTORY OF Left 2007 nephrectomy PAST SURGICAL HISTORY OF 2001 colon resection with colostomy PAST SURGICAL HISTORY OF Right 2010 Above the knee amputation PAST SURGICAL HISTORY OF lower back muscle removed after infection from bowel rupture. PAST SURGICAL HISTORY OF 2001 VENA CAVA FILTER Prior to Admission medications as of 11/21/23 0805 Medication Sig Last Dose Taking venlafaxine ER (EFFEXOR XR) 37.5 mg 24 hr capsule Take 1 capsule by mouth every afternoon. 11/20/2023 Yes MULTIVITAMIN ORAL Take by mouth. Vitafusion 11/20/2023 Yes Acetaminophen 500 mg cap Take by mouth. 11/21/2023 Yes biotin 300 mcg tab Take 300 mcg by mouth. 11/20/2023 Yes venlafaxine ER (EFFEXOR XR) 75 mg 24 hr capsule Take 37.5 mg by mouth once daily. 11/20/2023 Yes ALLERGIES Allergen Reactions Penicillins Rash [place] [Hydrocodone-* GI Upset Sulfa (Sulfonamide * GI Upset Objective PHYSICAL EXAM: The remainder of the physical exam is noncontributory. AIRWAY: Airway Visualization of Uvula: Yes Mouth opening greater than 2 fingerbreadths: Yes Neck Full Range of Motion: Yes LUNGS: Lungs clear to auscultation CARDIAC: Regular rhythm,Regular rate Assessment/Plan ASA Class: ASA Class: Patient with severe systemic disease Active Problems: * No active hospital problems. * Resolved Problems: * No resolved hospital problems. * Medication and Non-Pharmacologic VTE Prophylaxis/Anticoagulants VTE Prophylaxis: VTE prophylaxis appropriate Provisional Diagnosis/Treatment Plan: Chronic left nephrostomy tube, for routine exchange. Sedation Goal: Moderate SIGNATURE: Devan Husain MD PATIENT NAME: Julia Willoughby DATE: November 21, 2023 TIME: 8:07 AM documented in this encounter [facility] 08-30-2023 Note Formatting of this n ote might be different from the original. [facility] [address] [place] [address]. [address] [place] [address] August 30, 2023 PID: [id number] Julia Willoughby [address] [place] [address] Dear Brian Cindi, We are pleased to inform you that the results of your recent breast imaging exam on 08/28/2023 are normal. Early detection of cancer is very important. We also understand recommendations regarding breast cancer screening are controversial. Please discuss with your primary care provider which strategy is best for you and whether a mammogram is right for you. Your imaging studies and report will be kept on file at [facility] as part of your permanent medical record and are available for your continuing care. Thank you for allowing us to help in meeting your health care needs. Sincerely, Dr. Penny Interpreting Radiologist [facility] (Normal over 40) [facility] 08-30-2023 Miscellaneous Notes [facility] [address] [place] [address]. [address] [place] [id number] August 30, 2023 PID: [id number] Julia Willoughby [address] [place] [address] Dear Ms. Willoughby, We are pleased to inform you that the results of your recent breast imaging exam on 08/28/2023 are normal. Early detection of cancer is very important. We also understand recommendations regarding breast cancer screening are controversial. Please discuss with your primary care provider which strategy is best for you and whether a mammogram is right for you. Your imaging studies and report will be kept on file at [facility] as part of your permanent medical record and are available for your continuing care. Thank you for allowing us to help in meeting your health care needs. Sincerely, Dr. Penny Interpreting Radiologist [facility] (Normal over 40) documented in this encounter [facility] 08-28-2023 History of Presen t illness Narrative Radiology Service Progress Note PATIENT NAME: Julia Willoughby DATE OF SERVICE: August 28, 2023 TIME: 2:32 PM PATIENT IDENTITY VERIFICATION COMPLETED USING TWO (2) IDENTIFIERS: Name and Date of confirmed by patient verbally. FALL SCREENING: Has the patient had 2 falls in the last year or 1 fall with injury or currently using an Ambulatory Assistive Device (Walker, Cane, Wheelchair, Crutches, etc.)? No PATIENT GENDER DATA: Female. status: : No status: NO. PATIENT RELEVANT IMPLANT DATA REVIEWED: Yes PATIENT PRESENTS WITH AN IMPLANTABLE OR ATTACHED JUNIOR ARCHITECT: No RADIOLOGY DEPARTMENT: Mammography PERIPHERAL IV DATA: Not applicable SIGNED BY: RT Feroz(R) August 28, 2023 2:32 PM documented in this encounter [facility] 08-22-2023 History of Presen t illness Narrative Images from the original note were not included. [facility] [address] [place] [address] Date of Evaluation: 08/22/2023 Patient Name: Julia Willoughby : 1955 Chief Complaint: Patient presents with: Results: Urine culture from 08/20/23 Nursing Intake: There are no exam notes on file for this visit. Subjective Ms. Willoughby is a 67 year old female who presents with the following complaint(s): The history is provided by the patient. No license clerk was used. UTI This is a new problem. The problem occurs intermittently. The problem has not changed since onset.Pertinent negatives include no hematuria. Review of Systems Constitutional: Negative for fatigue and unexpected weight change. HENT: Negative for nosebleeds. Eyes: Negative for redness and visual disturbance. Respiratory: Negative for apnea, cough and shortness of breath. Cardiovascular: Negative for chest pain, palpitations and leg swelling. Genitourinary: Positive for dysuria. Negative for hematuria. Neurological: Negative for dizziness, weakness, light-headedness, numbness and headaches. Hematological: Does not bruise/bleed easily. Psychiatric/Behavioral: The patient is not nervous/anxious. 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 Hydronephrosis Osteomyelitis (HCC) 10/2001 Surgical washout L Hip, Sacrum IV ATB x 4 months Overactive bladder Peritonitis in infectious disease ([facility]) Staph infection Vesicovaginal fistula PAST SURGICAL HISTORY Procedure Laterality Date BYP OTH/THN VEIN FEMORAL-POPLITEAL Right 2007 COLOSTOMY 2001 EXTRACTION, ERUPTED TOOTH OR EXPOSED ROOT (ELEVATION AND/OR FORCEPS REMOVAL) NEPHROSTOMY TUBE Left 09/2018 PAST SURGICAL HISTORY OF Left 2007 nephrectomy PAST SURGICAL HISTORY OF 2001 colon resection with colostomy PAST SURGICAL HISTORY OF Right 2010 Above the knee amputation PAST SURGICAL HISTORY OF lower back muscle removed after infection from bowel rupture. PAST SURGICAL HISTORY OF 2001 VENA CAVA FILTER FAMILY HISTORY Problem Relation Age of Onset Alzheimer's Disease Mother Blood Clots Mother Diabetes Father Social History Tobacco Use Smoking status: Never Smokeless tobacco: Never Vaping Use Vaping Use: Never used Substance Use Topics Alcohol use: Not Currently Drug use: Never Current Outpatient Medications Medication Sig venlafaxine ER (EFFEXOR XR) 37.5 mg 24 hr capsule Take 1 capsule by mouth every afternoon. MULTIVITAMIN ORAL Take by mouth. Vitafusion Acetaminophen 500 mg cap Take by mouth. biotin 300 mcg tab Take 300 mcg by mouth. nitrofurantoin monohydrate and macrocrystal (MACROBID) 100 mg capsule Take 1 capsule by mouth two times a day for 5 days. WITH FOOD. venlafaxine ER (EFFEXOR XR) 75 mg 24 hr capsule Take 37.5 mg by mouth once daily. (Patient not taking: Reported on 08/22/2023) No current facility-administered medications for this visit. I have confirmed and edited as necessary the past medical, family and social histories, HPI, and ROS obtained by others. Objective BP 140/80 Pulse 98 Temp 97.8 Wt 0 lb (0.0kg) SpO2 98% Physical Exam Vitals and nursing note reviewed. Constitutional: General: She is not in acute distress. Appearance: Normal appearance. She is well-developed. She is not ill-appearing. HENT: Head: Normocephalic. Right Ear: Tympanic membrane, ear canal and external ear normal. There is no impacted cerumen. Left Ear: Tympanic membrane, ear canal and external ear normal. There is no impacted cerumen. Nose: Nose normal. Mouth/Throat: Mouth: Mucous membranes are moist. Pharynx: Oropharynx is clear. Uvula midline. No oropharyngeal exudate or posterior oropharyngeal erythema. Eyes: General: Lids are normal. Vision grossly intact. Gaze aligned appropriately. No scleral icterus. Right eye: No discharge. Left eye: No discharge. Extraocular Movements: Extraocular movements intact. Conjunctiva/sclera: Conjunctivae normal. Pupils: Pupils are equal, round, and reactive to light. Neck: Thyroid: No thyroid mass, thyromegaly or thyroid tenderness. Vascular: No carotid bruit. Trachea: Trachea and phonation normal. Cardiovascular: Rate and Rhythm: Normal rate and regular rhythm. Pulses: Normal pulses. Heart sounds: Normal heart sounds. Pulmonary: Effort: Pulmonary effort is normal. Breath sounds: Normal breath sounds. Abdominal: General: Abdomen is flat. Bowel sounds are normal. Palpations: Abdomen is soft. Musculoskeletal: General: Normal range of motion. Right shoulder: Normal. Left shoulder: Normal. Cervical back: Normal, full passive range of motion without pain and neck supple. No tenderness. No spinous process tenderness. Thoracic back: Normal. Lumbar back: Normal. Right knee: Normal. Left knee: Normal. Right lower leg: No edema. Left lower leg: No edema. Lymphadenopathy: Cervical: No cervical adenopathy. Skin: General: Skin is warm and dry. Neurological: General: No focal deficit present. Mental Status: She is alert and oriented to person, place, and time. Mental status is at baseline. Sensory: Sensation is intact. Motor: Motor function is intact. Psychiatric: Attention and Perception: Attention and perception normal. Mood and Affect: Mood normal. Speech: Speech normal. Behavior: Behavior normal. Thought Content: Thought content normal. Judgment: Judgment normal. Data Reviewed: Most recent urine culture ASSESSMENT/PLAN: 1. Acute UTI - ICD9: 599.0, ICD10: N39.0 (primary diagnosis) -acute - Start Macrobid - NITROFURANTOIN MONOHYDRATE & MACROCRYSTAL 100 MG ORAL CAP 2. Hyperlipidemia, mixed - ICD9: 272.2, ICD10: E78.2 - Control undetermined, due for labs - COMPLETE BLOOD COUNT AND DIFFERENTIAL - COMPREHENSIVE METABOLIC PANEL - LIPID PANEL BASIC - URINALYSIS, WITH MICROSCOPIC 3. Screening for thyroid disorder - ICD9: V77.0, ICD10: Z13.29 - THYROID STIMULATING HORMONE 4. Recurrent UTI (urinary tract infection) - ICD9: 599.0, ICD10: N39.0 - Recheck Urine in 1 week - URINALYSIS, WITH MICROSCOPIC - URINE CULTURE Madisyn Garvin, DO Return if symptoms worsen or fail to improve. Attestation: Scribe Attestation: The patient is seen and examined by Dr. Garvin and the following reflects his/her service. Scribed by Linda Martinez August 22, 2023 10:09 AMProvider Attestation: I, Madisyn Garvin DO personally performed the services described in this documentation. All medical record entries made by the scribe were at my direction and in my presence. I have reviewed the chart and discharge instructions (if applicable) and agree that the record reflects my personal performance and is accurate and complete. Electronically Signed: Madisyn Garvin DO, August 22, 2023 10:15 AM documented in this encounter [facility] 08-21-2023 Telephone encounter Note Spoke to patient she has been placed on the sched for an appt 08/22/2023. [facility] 08-21-2023 Miscellaneous Notes Spoke to patient she has been placed on the sched for an appt 08/22/2023. documented in this encounter [facility] 08-21-2023 Telephone encounter Note ----- Message from Regi Guo sent at 08/21/2023 11:39 AM EDT ----- [facility]/ Madisyn Garvin/ Call back/ Kidney infection concern Subject Line Format: Medicine / Madisyn Garvin DO / [Issue] Select Department Name For Pool Routing Assistance: [facility] [place] => [facility] [place] [facility] [[id number]] ===== Patient: Julia Willoughby Date of : 1955 Primary Care Provider: Madisyn Garvin DO The reason I am contacting the office is: Call Back - Patient is requesting a call back from nurse about Kidney Infection concern (pt has only one kidney). Person calling if other than patient: n Best contact number: [phone] Thank you, Regi Guo August 21, 2023 11:39 AM [facility] 08-21-2023 Miscellaneous Notes ----- Message from Regi Guo sent at 08/21/2023 11:39 AM EDT ----- Regardincqinstitsallie/Nasim/ Madisyn Garvin/ Call back/ Kidney infection concern Subject Line Format: Medicine / Madisyn Garvin DO / [Issue] Select Department Name For Pool Routing Assistance: [facility] [place] => [facility] [place] AP[facility] [[id number]] ===== Patient: Julia Willoughby Date of : 1955 Primary Care Provider: Madisyn Garvin DO The reason I am contacting the office is: Call Back - Patient is requesting a call back from nurse about Kidney Infection concern (pt has only one kidney). Person calling if other than patient: n Best contact number: [phone] Thank you, Regi Guo August 21, 2023 11:39 AM documented in this encounter [facility] 06-14-2022 Miscellaneous Notes Dana Mcgarry [address] [place] [address] June 14, 2022 PID: [id number] Julia Willoughby [address] [place] [address] Dear Ms. Willoughby, We are pleased to inform you that the results of your recent breast imaging exam on 06/13/2022 are normal. Early detection of cancer is very important. We also understand recommendations regarding breast cancer screening are controversial. Please discuss with your primary care provider which strategy is best for you and whether a mammogram is right for you. Your imaging studies and report will be kept on file at [facility] as part of your permanent medical record and are available for your continuing care. Thank you for allowing us to help in meeting your health care needs. Sincerely, Dr. Sapp Interpreting Radiologist [facility] Ross (Normal over 40) documented in this encounter [facility] 06-13-2022 History of Presen t illness Narrative Radiology Service Progress Note PATIENT NAME: Julia Willoughby DATE OF SERVICE: June 13, 2022 TIME: 11:20 AM PATIENT IDENTITY VERIFICATION COMPLETED USING TWO (2) IDENTIFIERS: Name and Date of confirmed by patient verbally. FALL SCREENING: Has the patient had 2 falls in the last year or 1 fall with injury or currently using an Ambulatory Assistive Device (Walker, Cane, Wheelchair, Crutches, etc.)? No PATIENT GENDER DATA: Female. status: : No status: NO. PATIENT RELEVANT IMPLANT DATA REVIEWED: Yes RADIOLOGY DEPARTMENT: Mammography PERIPHERAL IV DATA: Not applicable SIGNED BY: RT Rajni(R) June 13, 2022 11:20 AM documented in this encounter [facility] 05-23-2022 History and physical note RADIOLOGY PROCEDURAL SEDATION HISTORY AND PHYSICAL EXAM SERVICE DATE: 05/23/2022 SERVICE TIME: 7:45 am Subjective HPI: This is a 66 year old female who presents for routine left nephrostomy exchange. 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 Hydronephrosis Osteomyelitis (HCC) 10/2001 Surgical washout L Hip, Sacrum IV ATB x 4 months Overactive bladder Peritonitis in infectious disease (HCC) Staph infection Vesicovaginal fistula PAST SURGICAL HISTORY Procedure Laterality Date BYP OTH/THN VEIN FEMORAL-POPLITEAL Right 2006 COLOSTOMY 2001 EXTRACTION, ERUPTED TOOTH OR EXPOSED ROOT (ELEVATION AND/OR FORCEPS REMOVAL) NEPHROSTOMY TUBE Left 09/2018 PAST SURGICAL HISTORY OF Left 2006 nephrectomy PAST SURGICAL HISTORY OF 2001 colon resection with colostomy PAST SURGICAL HISTORY OF Right 2010 Above the knee amputation PAST SURGICAL HISTORY OF lower back muscle removed after infection from bowel rupture. PAST SURGICAL HISTORY OF 2001 VENA CAVA FILTER Prior to Admission medications as of 05/23/22 0711 Medication Sig Last Dose Taking sodium chloride 0.9 %, flush, (NORMAL SALINE FLUSH) syringe 10 mL once daily. USE DIRECTED Acetaminophen 500 mg cap Take by mouth. biotin 300 mcg tab Take 300 mcg by mouth. venlafaxine ER (EFFEXOR XR) 75 mg 24 hr capsule Take 37.5 mg by mouth once daily. ALLERGIES Allergen Reactions Penicillins Rash [place] [Hydrocodone-* GI Upset Sulfa (Sulfonamide * GI Upset Objective PHYSICAL EXAM: The remainder of the physical exam is noncontributory. AIRWAY: Airway Visualization of Uvula: No (See Comment) Mouth opening greater than 2 fingerbreadths: No (See Comment) Neck Full Range of Motion: Yes LUNGS: breathing room air CARDIAC: normal rate Assessment/Plan ASA Class: ASA Class:: Patient with severe systemic disease Provisional Diagnosis/Treatment Plan: Will proceed with nephrostomy exchange. SIGNATURE: Kristen Forman MD PATIENT NAME: Julia Willoughby DATE: May 23, 2022 TIME: 9:50 AM documented in this encounter [facility] 05-23-2022 Surgical operatio n note BRIEF OPERATIVE / PROCEDURE NOTE LOG ID: [id number] SURGERY/PROCEDURE DATE: 05/23/2022 INCISION/PROCEDURE START TIME: 7:55 AM INCISION CLOSE/PROCEDURE END TIME: 8:10 AM SURGEON(S)/PROCEDURALIST(S) AND PLANT MACHINIST(S): Surgeon(s) and Role: * Kristen Forman MD - Primary No Additional Staff SURGERY/PROCEDURE(S): Image guided 10F left nephrostomy exchange ANESTHESIA: Procedural Sedation FINDINGS: ESTIMATED BLOOD LOSS: minimal SPECIMENS: None COMPLICATIONS: None PRE-OP/PRE-PROCEDURE DIAGNOSIS: Hydronephrosis POST-OP/POST-PROCEDURE DIAGNOSIS: Same as Preop SIGNATURE: Kristen Forman MD PATIENT NAME: Julia Willoughby DATE: May 23, 2022 TIME: 8:16 AM documented in this encounter [facility] 02-19-2022 Miscellaneous Notes Spoke with patient and advised. Gave her the lab hours, gave her the number to schedule the ultrasound. Advised patient once she schedules her ultrasound to call back in and schedule a follow up appt to go over results. Patient understood. Patient had no further questions. Patient states she only has one kidney. Fyi. ----- Message from Madisyn Garvin DO sent at 02/16/2022 1:18 PM EST ----- Multiple issures. Low chol diet. Spe ordered. Ckd I need to see orders written documented in this encounter [facility] 01-17-2022 History of Presen t illness Narrative Images from the original note were not included. [facility] Medicine Rodolfo Garvin DO [address] [place] [address] Date of Evaluation: 01/17/2022 Patient Name: Julia Willoughby : 1955 Chief Complaint: Patient presents with: Establish Care needs an order for new sleeve for prosthetic leg Nursing Intake: There are no exam notes on file for this visit. Subjective Ms. Willoughby is a 66 year old female who presents with the following complaint(s): Patient presents to establish care and have supplies ordered. Review of Systems Constitutional: Negative for fatigue and unexpected weight change. HENT: Negative for nosebleeds. Eyes: Negative for redness and visual disturbance. Respiratory: Negative for apnea, cough and shortness of breath. Cardiovascular: Negative for chest pain, palpitations and leg swelling. Genitourinary: Negative for hematuria. Neurological: Negative for dizziness, weakness, light-headedness, numbness and headaches. Hematological: Does not bruise/bleed easily. Psychiatric/Behavioral: The patient is not nervous/anxious. PAST MEDICAL HISTORY Diagnosis Date Anxiety Cancer (HCC) Depression History of antineoplastic therapy History of cervical cancer Hydronephrosis Osteomyelitis (HCC) Overactive bladder Peritonitis in infectious disease (HCC) Staph infection Vesicovaginal fistula PAST SURGICAL HISTORY Procedure Laterality Date BYP OTH/THN VEIN FEMORAL-POPLITEAL Right 2007 COLOSTOMY 2002 EXTRACTION, ERUPTED TOOTH OR EXPOSED ROOT (ELEVATION AND/OR FORCEPS REMOVAL) NEPHROSTOMY TUBE Left 09/2018 PAST SURGICAL HISTORY OF Left 2006 nephrectomy PAST SURGICAL HISTORY OF 2001 colon resection with colostomy PAST SURGICAL HISTORY OF Right 2010 Above the knee amputation PAST SURGICAL HISTORY OF lower back muscle removed after infection from bowel rupture. PAST SURGICAL HISTORY OF 2001 VENA CAVA FILTER FAMILY HISTORY Problem Relation Age of Onset Alzheimer's Disease Mother Blood Clots Mother Diabetes Father Social History Tobacco Use Smoking status: Never Smokeless tobacco: Never Vaping Use Vaping Use: Never used Substance Use Topics Alcohol use: Not Currently Drug use: Never Current Outpatient Medications Medication Sig Dispense Refill sodium chloride 0.9 %, flush, (NORMAL SALINE FLUSH) syringe 10 mL once daily. USE DIRECTED 100 mL 5 Acetaminophen 500 mg cap Take by mouth. biotin 300 mcg tab Take 300 mcg by mouth. venlafaxine ER (EFFEXOR XR) 75 mg 24 hr capsule Take 37.5 mg by mouth once daily. No current facility-administered medications for this visit. I have confirmed and edited as necessary the past medical, family and social histories, HPI, and ROS obtained by others. Objective BP 132/70 Pulse 105 Temp 98.4 Resp 20 Ht 5' 5 (1.65m) Wt 172 lb (78.0kg) SpO2 97% BMI 28.62 kg/(m^2). Physical Exam Vitals and nursing note reviewed. Constitutional: General: She is not in acute distress. Appearance: Normal appearance. She is well-developed. She is not ill-appearing. HENT: Head: Normocephalic. Right Ear: Tympanic membrane, ear canal and external ear normal. There is no impacted cerumen. Left Ear: Tympanic membrane, ear canal and external ear normal. There is no impacted cerumen. Nose: Nose normal. Mouth/Throat: Mouth: Mucous membranes are moist. Pharynx: Oropharynx is clear. Uvula midline. No oropharyngeal exudate or posterior oropharyngeal erythema. Eyes: General: Lids are normal. Vision grossly intact. Gaze aligned appropriately. No scleral icterus. Right eye: No discharge. Left eye: No discharge. Extraocular Movements: Extraocular movements intact. Conjunctiva/sclera: Conjunctivae normal. Pupils: Pupils are equal, round, and reactive to light. Neck: Thyroid: No thyroid mass, thyromegaly or thyroid tenderness. Vascular: No carotid bruit. Trachea: Trachea and phonation normal. Cardiovascular: Rate and Rhythm: Normal rate and regular rhythm. Pulses: Normal pulses. Heart sounds: Normal heart sounds. Pulmonary: Effort: Pulmonary effort is normal. Breath sounds: Normal breath sounds. Abdominal: General: Abdomen is flat. Bowel sounds are normal. Palpations: Abdomen is soft. Musculoskeletal: General: Normal range of motion. Right shoulder: Normal. Left shoulder: Normal. Cervical back: Normal, full passive range of motion without pain and neck supple. No tenderness. No spinous process tenderness. Thoracic back: Normal. Lumbar back: Normal. Right knee: Normal. Left knee: Normal. Right lower leg: No edema. Left lower leg: No edema. Comments: Presence of Right Artifical Leg Lymphadenopathy: Cervical: No cervical adenopathy. Skin: General: Skin is warm and dry. Neurological: General: No focal deficit present. Mental Status: She is alert and oriented to person, place, and time. Mental status is at baseline. Sensory: Sensation is intact. Motor: Motor function is intact. Psychiatric: Attention and Perception: Attention and perception normal. Mood and Affect: Mood normal. Speech: Speech normal. Behavior: Behavior normal. Thought Content: Thought content normal. Judgment: Judgment normal. Data Reviewed: No new labs ASSESSMENT/PLAN: 1. Presence of right artificial leg - ICD9: V43.7, ICD10: Z97.13 (primary diagnosis) 2. Nephrostomy tube displaced (HCC) - ICD9: 997.5, ICD10: T83.022A 3. History of cervical cancer - ICD9: V10.41, ICD10: Z85.41 4. Screening for hyperlipidemia - ICD9: V77.91, ICD10: Z13.220 - CBC + DIFF - COMP METABOLIC PANEL - LIPID PANEL BASIC - URINALYSIS, WITH MICROSCOPIC 5. Screening for thyroid disorder - ICD9: V77.0, ICD10: Z13.29 - TSH BLD Return for review labs. Madisyn Garvin DO Attestation: Scribe Statement: I Linda Martinez am scribing for, and in the presence of, Madisyn Garvin DO January 17, 2022 12:01 PM. Physician Statement: I, Madisyn Garvin DO, personally performed the services described in the documentation, as scribed by Linda Martinez in my presence, and it is both accurate and complete January 17, 2022 12:09 PM. documented in this encounter [facility] 04-26-2021 Miscellaneous Notes Pharmacy faxed requesting the following refill. Pending Prescriptions Disp Refills SODIUM CHLORIDE 0.9 % (FLUSH) INJECTION SYRINGE 100 mL 5 Si mL once daily. USE DIRECTED KONG: No Patient last appointment: 03/23/2021 Patient Phone numbers: [phone] (home) Request is for script(s) to be escript to pharmacy. Heath Smith Cma documented in this encounter [facility] 11-18-2018 History of Past i llness Narrative Problem Noted Date Resolved Date Sepsis 11/18/2018 02/09/2021 documented as of this encounter (statuses as of 04/26/2021) [facility] History of Past illness Narrative* Problem Noted Date Resolved Date Sepsis 11/18/2018 02/09/2021 documented as of this encounter (statuses as of 02/14/2022) [facility] of Past illness Narrative* Problem Noted Date Resolved Date Sepsis 11/18/2018 02/09/2021 documented as of this encounter (statuses as of 02/19/2022) [facility] of Past illness Narrative* Problem Noted Date Resolved Date Sepsis 11/18/2018 02/09/2021 documented as of this encounter (statuses as of 05/24/2022) [facility] of [facility] illness Narrative* Problem Noted Date Resolved Date Sepsis 11/18/2018 02/09/2021 documented as of this encounter (statuses as of 06/16/2022) [facility] of [facility] illness Narrative* Problem Noted Date Diagnosed Date Resolved Date Sepsis 11/18/2018 02/09/2021 documented as of this encounter (statuses as of 01/09/2023) [facility] Diagnosis Hydronephrosis, unspecified hydronephrosis type [facility] Diagnosis Hydronephrosis, unspecified hydronephrosis type- Primary Presence of right artificial leg Limb replaced by other means Nephrostomy tube displaced (HCC) Urinary complications History of cervical cancer Personal history of malignant neoplasm of cervix uteri Screening for hyperlipidemia Screening for lipoid disorders Screening for thyroid disorder [facility] Diagnosis Obstruction of left ureter- Primary Hydronephrosis, unspecified hydronephrosis type [facility] Diagnosis Acute UTI- Primary Urinary tract infection, site not specified Recurrent UTI (urinary tract infection) Urinary tract infection, site not specified Hyperlipidemia, mixed Mixed hyperlipidemia Screening for thyroid disorder [facility] Diagnosis Nephrostomy tube displaced (HCC)- Primary Urinary complications Urinary tract infection without hematuria, site unspecified Leukocytosis, unspecified type Status post nephrectomy Anxiety Anxiety state, unspecified Acute kidney injury (HCC) Acute kidney failure, unspecified Cervical cancer, FIGO stage IIB (HCC) Lymph nodes enlarged Enlargement of lymph nodes Hypercalcemia Urinary tract infection Urinary tract infection, site not specified Dermatitis associated with moisture Irritant contact dermatitis due friction or contact with other specified body fluids Nephrostomy tube displaced (HCC)- Primary Urinary complications MANDEEP (generalized anxiety disorder) Generalized anxiety disorder Cervical cancer, FIGO stage IIB (HCC) Allergic dermatitis Contact dermatitis and other eczema, due to unspecified cause Hx of AKA (above knee amputation), right (HCC) BMI 22.0-22.9, adult documented in this encounter [facility] note* Diagnosis Nephrostomy tube displaced (HCC)- Primary Urinary complications Urinary tract infection without hematuria, site unspecified Leukocytosis, unspecified type Status post nephrectomy Anxiety Anxiety state, unspecified Acute kidney injury (HCC) Acute kidney failure, unspecified Cervical cancer, FIGO stage IIB (HCC) Lymph nodes enlarged Enlargement of lymph nodes Hypercalcemia Urinary tract infection Urinary tract infection, site not specified Dermatitis associated with moisture Irritant contact dermatitis due friction or contact with other specified body fluids Hx of AKA (above knee amputation), right (HCC)- Primary [facility] Diagnosis Nephrostomy tube displaced- Primary Urinary complications Urinary tract infection without hematuria, site unspecified Leukocytosis, unspecified type Status post nephrectomy Anxiety Anxiety state, unspecified Acute kidney injury Acute kidney failure, unspecified Cervical cancer, FIGO stage IIB (HCC) Lymph nodes enlarged Enlargement of lymph nodes Hypercalcemia Urinary tract infection Urinary tract infection, site not specified Dermatitis associated with moisture Irritant contact dermatitis due friction or contact with other specified body fluids Kidney disease- Primary Unspecified disorder of kidney and ureter [facility] Diagnosis Nephrostomy tube displaced- Primary Urinary complications Urinary tract infection without hematuria, site unspecified Leukocytosis, unspecified type Status post nephrectomy Anxiety Anxiety state, unspecified Acute kidney injury Acute kidney failure, unspecified Cervical cancer, FIGO stage IIB (HCC) Lymph nodes enlarged Enlargement of lymph nodes Hypercalcemia Urinary tract infection Urinary tract infection, site not specified Dermatitis associated with moisture Irritant contact dermatitis due friction or contact with other specified body fluids Financial difficulties- Primary Inadequate material resources [facility] noteNo assessment information availableWKindred Hospital [facility] Work Phone: Reason for referral (narrative)No reason for referral information availableWKindred Hospital [facility] Work Phone: Summary Purpose Family History No Family History Records FoundNo Family History Records FoundNo Family History Records FoundNo Family History Records FoundNo Family History Records Found Advance Directives No Advanced Directives Records FoundDocuments on File 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 Advance Directive(s) Advance Directive(s) 03/09/2021 7:03 AM Advance Directive(s) 01/03/2021 7:04 AM Advance Directive(s) 10/21/2020 10:35 AM Advance Directive(s) 08/12/2020 9:40 AM Advance Directive(s) 06/01/2020 8:13 AM Advance Directive(s) 03/15/2020 12:03 PM Advance Directive(s) 03/09/2020 7:33 AM Advance Directive(s) 12/23/2019 7:19 AM Advance Directive(s) 09/30/2019 7:05 AM Advance Directive(s) 07/15/2019 7:10 AM Advance Directive(s) 04/29/2019 8:35 AM Advance Directive(s) 04/01/2019 6:59 AM Advance Directive(s) 02/18/2019 6:55 AM Advance Directive(s) 01/27/2019 8:04 AM Advance Directive(s) 01/13/2019 7:39 AM Advance Directive(s) 11/15/2018 10:05 PM Date Activated Date Inactivated Comments 02/01/2024 5:12 AM 02/05/2024 8:23 PM Question Answer Comments Full Code Order Discussed With: Patient Date Activated Date Inactivated Comments 02/01/2024 5:12 AM 02/05/2024 8:23 PM Question Answer Comments Full Code Order Discussed With: Patient Medications Administered Section Inactive Administered Medications - up to 3 most recent administrations Medication Order MAR Action Action Date Dose Rate Site fentaNYL 50 mcg/mL injection (SUBLIMAZE) INTRAVENOUS, X (OR/PROCEDURE) PRN, Starting on 05/23/22 at 0755, Until Belk[place] 05/24/22 at 0303, Intraprocedure Given 05/23/2022 8:05 AM EDT 50 mcg Given 05/23/2022 7:55 AM EDT 50 mcg lidocaine 20 mg/mL (2 %) injection (XYLOCAINE) X (OR/PROCEDURE) PRN, Starting on Sat05/23/22 at 0755, Until Belkys 05/24/22 at 0303, Intraprocedure Given 05/23/2022 7:55 AM EDT 10 mL Back, Left midazolam (PF) injection (VERSED) INTRAVENOUS, X (OR/PROCEDURE) PRN, Starting on Sat05/23/22 at 0755, Until Belk[place] 05/24/22 at 0303, Intraprocedure Given 05/23/2022 8:05 AM EDT 1 mg Given 05/23/2022 7:55 AM EDT 1 mg NaCl 0.9% iv infusion INTRAVENOUS, X (OR/PROCEDURE) CONTINUOUS, Starting on Sat05/23/22 at 0753, Until Belkys 05/24/22 at 0303, Intraprocedure New Bag/Syringe/Bottle 05/23/2022 7:53 AM EDT 500 mL 30 mL/hr sodium chloride 0.9 % (flush) 5-10 mL (BD POSIFLUSH) 5-10 mL, OTHER, DAILY, First dose on Sat05/23/22 at 0900, Until Discontinued, For catheter/tube flush. Site: Nephrostomy tube - LEFT Additional Source Comments INFORMATION SOURCE (unrecogn ized section and content) DATE CREATED AUTHOR 08/10/2018 [facility] DATE CREATED AUTHOR AUTHOR'S ORGANIZ ATION 12/28/2020 [facility] DATE CREATED AUTHOR AUTHOR'S ORGANIZ ATION 12/08/2024 [facility] DATE CREATED AUTHOR AUTHOR'S ORGANIZ ATION 01/09/2025 [facility] DATE CREATED AUTHOR AUTHOR'S ORGANIZ ATION 01/10/2025 [facility] Source Comments (unrecognize d section and content) In the event this informatio n is protected by the Federal Confidentiality of Alcohol and Drug Abuse Patient Records regulations: The Federal rules restrict any use of the information to criminally investigate or prosecute any alcohol or drug abuse patient.[facility] the event this information is protected by the Federal Confidentiality of Alcohol and Drug Abuse Patient Records regulations: The Federal rules restrict any use of the information to criminally investigate or prosecute any alcohol or drug abuse patient.[facility] the event this information is protected by the Federal Confidentiality of Alcohol and Drug Abuse Patient Records regulations: The Federal rules restrict any use of the information to criminally investigate or prosecute any alcohol or drug abuse patient.[facility] Hospital[facility] the event this information is protected by the Federal Confidentiality of Alcohol and Drug Abuse Patient Records regulations: The Federal rules restrict any use of the information to criminally investigate or prosecute any alcohol or drug abuse patient.[facility] Hospital[facility] the event this information is protected by the Federal Confidentiality of Alcohol and Drug Abuse Patient Records regulations: The Federal rules restrict any use of the information to criminally investigate or prosecute any alcohol or drug abuse patient.[facility] Hospital[facility] the event this information is protected by the Federal Confidentiality of Alcohol and Drug Abuse Patient Records regulations: The Federal rules restrict any use of the information to criminally investigate or prosecute any alcohol or drug abuse patient.[facility] HospitalIn the event this information is protected by the Federal Confidentiality of Alcohol and Drug Abuse Patient Records regulations: The Federal rules restrict any use of the information to criminally investigate or prosecute any alcohol or drug abuse patient.[facility] HospitalIn the event this information is protected by the Federal Confidentiality of Alcohol and Drug Abuse Patient Records regulations: The Federal rules restrict any use of the information to criminally investigate or prosecute any alcohol or drug abuse patient.[facility] HospitalIn the event this information is protected by the Federal Confidentiality of Alcohol and Drug Abuse Patient Records regulations: The Federal rules restrict any use of the information to criminally investigate or prosecute any alcohol or drug abuse patient.[facility] HospitalIn the event this information is protected by the Federal Confidentiality of Alcohol and Drug Abuse Patient Records regulations: The Federal rules restrict any use of the information to criminally investigate or prosecute any alcohol or drug abuse patient.[facility] HospitalIn the event this information is protected by the Federal Confidentiality of Alcohol and Drug Abuse Patient Records regulations: The Federal rules restrict any use of the information to criminally investigate or prosecute any alcohol or drug abuse patient.[facility] HospitalIn the event this information is protected by the Federal Confidentiality of Alcohol and Drug Abuse Patient Records regulations: The Federal rules restrict any use of the information to criminally investigate or prosecute any alcohol or drug abuse patient.[facility] HospitalIn the event this information is protected by the Federal Confidentiality of Alcohol and Drug Abuse Patient Records regulations: The Federal rules restrict any use of the information to criminally investigate or prosecute any alcohol or drug abuse patient.[facility] the event this information is protected by the Federal Confidentiality of Alcohol and Drug Abuse Patient Records regulations: The Federal rules restrict any use of the information to criminally investigate or prosecute any alcohol or drug abuse patient.[facility] HospitalIn the event this information is protected by the Federal Confidentiality of Alcohol and Drug Abuse Patient Records regulations: The Federal rules restrict any use of the information to criminally investigate or prosecute any alcohol or drug abuse patient.[facility] HospitalIn the event this information is protected by the Federal Confidentiality of Alcohol and Drug Abuse Patient Records regulations: The Federal rules restrict any use of the information to criminally investigate or prosecute any alcohol or drug abuse patient.[facility]In the event this information is protected by the Federal Confidentiality of Alcohol and Drug Abuse Patient Records regulations: The Federal rules restrict any use of the information to criminally investigate or prosecute any alcohol or drug abuse patient.[facility] HospitalIn the event this information is protected by the Federal Confidentiality of Alcohol and Drug Abuse Patient Records regulations: The Federal rules restrict any use of the information to criminally investigate or prosecute any alcohol or drug abuse patient.[facility] HospitalIn the event this information is protected by the Federal Confidentiality of Alcohol and Drug Abuse Patient Records regulations: The Federal rules restrict any use of the information to criminally investigate or prosecute any alcohol or drug abuse patient.[facility] HospitalIn the event this information is protected by the Federal Confidentiality of Alcohol and Drug Abuse Patient Records regulations: The Federal rules restrict any use of the information to criminally investigate or prosecute any alcohol or drug abuse patient.[facility] HospitalIn the event this information is protected by the Federal Confidentiality of Alcohol and Drug Abuse Patient Records regulations: The Federal rules restrict any use of the information to criminally investigate or prosecute any alcohol or drug abuse patient.[facility] HospitalIn the event this information is protected by the Federal Confidentiality of Alcohol and Drug Abuse Patient Records regulations: The Federal rules restrict any use of the information to criminally investigate or prosecute any alcohol or drug abuse patient.[facility] Reason for Visit (unrecogniz ed section and content) Reason Onset Date Comments Refill Request 04/26/2021 Reason Comments Establish Care needs an order for new sleeve for prosth etic leg Reason Comments Results Specialty Diagnoses / Procedures Referred By Contac t Referred To Contact Diagnoses Hydronephrosis, unspecified hydronephrosis type Procedures EXCHANGE NEPHROSTOMY CATHETER PRQ W/IMG GID RS&I PERC EXCHANGE NEPHROSTOMY CATH, INCLUDING DIAGNOSTIC NEPHROSTOGRAM/URETEROGRAM WHEN PERFORMED,IMAGING GUIDANCE AND ALL ASSOCIATED RAD S&I [facility] [address] [place] [address] Referral ID Status Reason Start Date Expiration Date Visits Re quested Visits Authorized [id number] 1 1 Reason Comments Nurse Triage Call Reason Comments Results Urine culture from Reason Comments Radiology Mammogram Specialty Diagnoses / Procedures Referred By Contac Referred To Contact Diagnoses Hydronephrosis, unspecified hydronephrosis type Hydronephrosis, unspecified hydronephrosis type [N13.30] Procedures EXCHANGE NEPHROSTOMY CATHETER PRQ W/IMG GID RS&I PERC EXCHANGE NEPHROSTOMY CATH, INCLUDING DIAGNOSTIC NEPHROSTOGRAM/URETEROGRAM WHEN PERFORMED,IMAGING GUIDANCE AND ALL ASSOCIATED RAD S&[facility] [address] [place] [address] Referral ID Status Reason Start Date Expiration Date Visits Re quested Visits Authorized [id number] 1 1 Reason Comments Orders Need PT order reji Reason Onset Date Comments Transition Of Care 02/06/2024 Initial TCM O utreach Reason Onset Date Comments Transition Of Care 02/10/2024 TCM Follow Up Call Reason Comments Transition Of Care 01/31/24/-02/05/24 Manjeet Mcgarry. Nephrostomy tube displaced Rash X 1 week. All over b [place]. 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 Care Teams (unrecognized sec tion and content) Employee Communications Coordinator Relationship Specialty Start Date End Date BharathiMadisyn castroDO [address] [place] [id number] PCP - General Family Medicine 01/22/22 Employee Communications Coordinator Relationship Specialty Start Date End Date Madisyn Garvin DO [address] [place] [id number] PCP - General Family Medicine 01/22/22 Employee Communications Coordinator Relationship Specialty Start Date End Date Madisyn Garvin DO [address] [place] [id number] PCP - General Family Medicine 01/22/22 Employee Communications Coordinator Relationship Specialty Start Date End Date Madisyn Garvin DO [address] [place] [id number] PCP - General Family Medicine 01/22/22 Employee Communications Coordinator Relationship Specialty Start Date End Date Madisyn Garvin [address] [place] [id number] PCP - General Family Medicine 01/22/22 Employee Communications Coordinator Relationship Specialty Start Date End Date Madisyn Garvin DO [address] [place] [address] PCP - General Family Medicine 01/22/22 Employee Communications Coordinator Relationship Specialty Start Date End Date Madisyn Garvin DO [address] [place] [address] PCP - General Family Medicine 01/22/22 Employee Communications Coordinator Relationship Specialty Start Date End Date Madisyn Garvin DO [address] [place] [address] PCP - General Family Medicine 01/22/22 Employee Communications Coordinator Relationship Specialty Start Date End Date Madisyn Garvin DO [address] [place] [address] PCP - General Family Medicine 01/22/22 Employee Communications Coordinator Relationship Specialty Start Date End Date Madisyn Garvin DO [address] [place] [address] PCP - General Family Medicine 01/22/22 Employee Communications Coordinator Relationship Specialty Start Date End Date Madisyn Garvin DO [address] [place] [address] PCP - General Family Medicine 01/22/22 Employee Communications Coordinator Relationship Specialty Start Date End Date Madisyn Garvin DO [address] [place] [address] PCP - General Family Medicine 01/22/22 Zeenat Hernández RN Primary Care Competitive Intelligence Manager 12/5/24 Employee Communications Coordinator Relationship Specialty Start Date End Date Madisyn Garvin DO [address] [place] [address] PCP - General Family Medicine 01/22/22 Zeenat Hernández RN Primary Care Competitive Intelligence Manager 02/06/24 Employee Communications Coordinator Relationship Specialty Start Date End Date Tammy Garvinland Tika [address] [place] [address] PCP - General Family Medicine 01/22/22 Zeenat Hernández RN Primary Care Competitive Intelligence Manager 02/06/24 Employee Communications Coordinator Relationship Specialty Start Date End Date BharathiTammyStandish Tika [address] [place] [address] PCP - General Family Medicine 01/22/22 Employee Communications Coordinator Relationship Specialty Start Date End Date BharathiTammyStandish Tika [address] [place] [address] PCP - General Family Medicine 01/22/22 Employee Communications Coordinator Relationship Specialty Start Date End Date BharathiMadisyn [address] [place] [id number] PCP - General Family Medicine 01/22/22 Employee Communications Coordinator Relationship Specialty Start Date End Date BharathiTammyMadisyn Tika [address] [place] [id number] PCP - General Family Medicine 01/22/22 Employee Communications Coordinator Relationship Specialty Start Date End Date Bharathi Madisyn Talbertdoug [address] [place] [id number] PCP - General Family Medicine 01/22/22 Scheduled Active and Recently Administ ered Medications (unrecognized section and content) Medication Order 05/21/2022 05/22/2022 05/23/2022 sodium chloride 0.9 % (flush) 5-10 mL (BD POSIFLUSH) 5-10 mL, OTHER, DAILY, First dose on Sat05/23/22 at 0900, Until Discontinued, For catheter/tube flush. Site: Nephrostomy tube - LEFT 0900 (Due) PRN Medication Order 05/21/2022 05/22/2022 05/23/2022 fentaNYL 50 mcg/mL injection (SUBLIMAZE) INTRAVENOUS, X (OR/PROCEDURE) PRN, Starting on Sat05/23/22 at 0755, Until [facility] 05/24/22 at 0303, Intraprocedure 0755 (Given - Provid er: Barbara Solano RN)0805 (Given - Provider: Barbara Solano RN) lidocaine 20 mg/mL (2 %) injection (XYLOCAINE) X (OR/PROCEDURE) PRN, Starting on Sat05/23/22 at 0755, Until [place] 05/24/22 at 0303, Intraprocedure 0755 (Given - Provid er: Kristen Forman MD) midazolam (PF) injection (VERSED) INTRAVENOUS, X (OR/PROCEDURE) PRN, Starting on Sat05/23/22 at 0755, Until [facility] 05/24/22 at 0303, Intraprocedure 0755 (Given - Provid er: Barbara Solano RN)0805 (Given - Provider: Barbara Solano RN) NaCl 0.9% iv infusion INTRAVENOUS, X (OR/PROCEDURE) CONTINUOUS, Starting on Sat05/23/22 at 0753, Until [facility] 05/24/22 at 0303, Intraprocedure 0753 (New Bag/Syring e/Bottle - Provider: Barbara Solano RN) PRN Medication Order 11/19/2023 11/20/2023 11/21/2023 fentaNYL 50 mcg/mL injection (SUBLIMAZE) (CANCELED) INTRAVENOUS, X (OR/PROCEDURE) PRN, Starting on [facility] 11/21/23 at 0814, Until [facility] 11/21/23 at 0827, Intraprocedure 0814 (Given - Provid er: Clifton Fowler RN) lidocaine (PF) 20 mg/mL (2 %) injection (XYLOCAINE) (CANCELED) SUBCUTANEOUS, X (OR/PROCEDURE) PRN, Starting on Belkys 11/21/23 at 0818, Until [facility] 11/21/23 at 0827, Intraprocedure 0818 (Given - Provid er: Devan Husain MD) midazolam (PF) injection (VERSED) (CANCELED) INTRAVENOUS, X (OR/PROCEDURE) PRN, Starting on Bel[place] 11/21/23 at 0815, Until [facility] 11/21/23 at 0827, Intraprocedure 0815 (Given - Provid er: Clifton Fowler RN) Goals (unrecognized section and content) Goals may be documented in a n alternate section FOR RECORDS PERTAINING TO PATIENTS WHO ARE OR HAVE BEEN ENROLLED IN A CHEMICAL DEPENDENCY/SUBSTANCEABUSE PROGRAM, SOME INFORMATION MAY BE OMITTED. This clinical summary was aggregated from multiple sources. Caution should be exercised in using it in the provision of clinical care. This summary normalizes information from multiple sources, and as a consequence, information in this document may materially change the coding, format and clinical context of patient data. In addition, data may be omitted in some cases. CLINICAL DECISIONS SHOULD BE BASED ON THE PRIMARY CLINICAL RECORDS. [employer] [facility]. provides no warranty or guarantee of the accuracy or completeness of information in this document.
[2025-02-05 18:01] LABS: Albumin, Serum 4.0 g/dL (3.4-4.8); Anion Gap 12 (5-15); BUN 45 mg/dL (4-19); BUN/Creat Ratio 17.8 RATIO (10-20); Calcium,Total 9.3 mg/dL (7.6-11.0); Carbon Dioxide 20.0 mmol/L (21.0-32.0); Chloride 107 mmol/L (98-108); Glucose 229 mg/dL (70-99); Potassium 4.5 mmol/L (3.3-5.1)
== END | disposition home or self-care (01) ==
LOC: LAB 15:24
PROVIDERS: PCP Family Medicine; Referring Provider Internal Medicine Nephrology; Visit Provider Internal Medicine Nephrology
DX: N18.5 Chronic kidney disease, stage 5 (principal)
CPT/HCPCS: 36415; 80069